=== PATIENT | male | born 1945 | race Caucasian/White ===

== ENCOUNTER 2018-05-24 17:51 | Inpatient (IN) ==
--- NOTE | 2018-05-24 18:08 | Emergency Department Note ---
Disposition Clinical Impression: Right lower lobe pneumonia, Weakness, Leukocytosis, Alzheimers disease Pneumonia Qualifiers: Pneumonia type: due to unspecified organism Laterality: right Lung location: lower lobe of lung Qualified Code(s): J18.1 - Lobar pneumonia, unspecified organism Hematuria Qualifiers: Hematuria type: gross Qualified Code(s): R31.0 - Gross hematuria Disposition: Admitted As Inpatient Condition: Fair Referrals: Sofy Blandon, RETAIL SALESWORKER [Primary Care Provider] - Forms: ED Satisfaction Letter, Work/School Release General Adult HPI - General Chief complaint: ED General Medical Stated complaint: weakness, malaise, body aches Time Seen by Provider: 05/24/18 18:01 Source: patient Mode of arrival: EMS Limitations: no limitations Nursing Notes Reviewed: Yes Vital Signs Reviewed: Yes - History of Present Illness HPI Narrative: 73 yo male with past medical history of cardiac bypass, diabetes and Parkinson's disease presents via EMS for increasing weakness at home. This patient has been seen 2 times in the emergency department since for various complaints. On he was seen for possible GI bleed with hemorrhoids and pain with bowel movements. On Wednesday he was seen for urinary retention and continues to have an indwelling Coley catheter at this time. Today he was unable to walk to the bathroom and his , who is his primary assessment rn, has not been able to properly take care of him today so the son called EMS. reports that the patient has not been eating or drinking as much recently and has become in continent with many episodes of diarrhea per day. He has been nauseous but has not vomited. She notes that there was some blood in his Coley bag today as well with some clots. He complains of total body pain and weakness. He also states that his legs feel numb and different when he tries to walk. He denies any chest pain or shortness of breath. He does have some abdominal pain. denies fevers at home. Pain Scale: 5 - Related Data Allergies Allergy/AdvReac Type Severity Reaction Status Date / Time tirofiban Allergy Intermediate See Verified 05/19/18 16:00 [From Aggrastat Concentrate] Comments All systems ED: reviewed and negative except as stated. Review of Systems: As Per HPI Constitutional: Reports: weakness. Denies: fever, chills Cardiovascular: Denies: chest pain, palpitations, dyspnea on exertion, orthopnea, edema, syncope Respiratory: Reports: cough. Denies: dyspnea, wheezes, sputum production Gastrointestinal: Reports: abdominal pain, nausea, diarrhea. Denies: vomiting, constipation Genitourinary: Reports: hematuria Musculoskeletal: Reports: back pain, neck pain Integumentary: Denies: rash Neurological: Reports: numbness, paresthesias Past Medical History - Past Medical History Medical history: Reports: coronary artery disease, diabetes, hypertension, myocardial infarction Psychiatric history: Reports: no psych history - Social History Smoking Status: Never smoker Smokeless Tobacco Status: No Alcohol use: Reports: none Drug use: Reports: none Physical Exam Pt generally weak but able to move all 4 extremities against gravity. States his legs feel different than normal but has equal sensation of B/L LE. - General Limitations: no limitations General appearance: alert, in no apparent distress - Head Head exam: atraumatic, normocephalic - Eye Eye exam: Present: normal appearance, PERRL, EOMI - ENT ENT exam: normal exam, mucous membranes dry - Neck Neck exam: Present: normal inspection. Absent: tenderness, lymphadenopathy - Chest Chest inspection: Present: normal inspection, symmetric chest wall rise. Absent: tenderness, rash - Respiratory Respiratory exam: Present: normal lung sounds bilaterally. Absent: wheezes - Cardiovascular Cardiovascular exam: Present: regular rate, normal rhythm - Abdominal Exam Abdominal exam: Present: soft, tenderness. Absent: Randhawa's sign, Rovsing's sign, tenderness at McBurney's Point Abdominal tenderness: Present: diffuse, mild - Extremities Exam Extremities exam: Present: normal inspection. Absent: pedal edema, calf tenderness - Neurological Exam Neurological exam: Present: alert, CN II-XII intact. Absent: motor sensory deficit - Psychiatric Psychiatric exam: Present: flat affect - Skin Skin exam: Present: warm, dry, intact Course Vital Signs Temperature 98.0 F 05/24/18 17:56 Pulse Rate 73 05/24/18 17:56 Respiratory Rate 16 05/24/18 17:56 Blood Pressure 152/82 05/24/18 17:56 O2 Sat by Pulse Oximetry 95 05/24/18 17:56 Temperature 98.0 F 05/24/18 17:56 Pulse Rate 62 05/24/18 19:05 Respiratory Rate 20 05/24/18 19:05 Blood Pressure 148/74 05/24/18 19:05 O2 Sat by Pulse Oximetry 96 05/24/18 19:05 Oxygen Delivery Oxygen Delivery Room Air Medical Decision Making - MDM Narrative Medical decision making narrative: As this patient is becoming more weak and unable to take care of himself, we will obtain CBC, CMP, troponin, UA, CXR, EKG and give him a bolus of fluids. 191 - Labs were significant for an elevated WBC and hematuria. EKG unremarkable. CXR demonstrates a right sided pneumonia. We will obtain a lactic and blood cultures, and administer rocephin and azithromycin. Hospitalist has been paged for admission for pneumonia and weakness. 193 - Dr. Freitas has accepted the patient for admission. - Medical Records Medical records reviewed: Yes I reviewed the patient's medical records. - Lab Data Lab results reviewed: Yes I reviewed the patient's lab results. Result diagrams: 05/24/18 18:02 05/24/18 18:02 Lab Results 05/24/18 05/24/18 05/24/18 Range/Units 18:02 18:02 18:40 WBC 15.6 H (4.3-11.1) K/mcL RBC 4.17 L (4.19-5.50) M/mcL Hgb 12.5 L (12.9-16.9) g/dL Hct 38.7 (37.5-50.1) % MCV 92.8 (83.0-100.0) fL MCH 30.0 (28.0-33.3) pg MCHC 32.3 (31.6-35.5) g/dL RDW 13.5 (11.5-14.5) % Plt Count 367 (140-400) K/mcL MPV 9.5 (9.4-12.4) fL Immature Gran % 0.5 (0-4) % Seg Neutrophils % 83.1 % Lymphocytes % 7.6 % Monocytes % 5.8 % Eosinophils % 2.6 % Basophils % 0.4 % Neutrophils # 12.9 H (1.6-8.9) K/mcL Lymphocytes # 1.2 (0.6-4.6) K/mcL Monocytes # 0.9 (0.0-1.3) K/mcL Eosinophils # 0.4 (0.0-0.6) K/mcL Basophils # 0.1 (0.0-0.2) K/mcL Sodium 135 L (136-145) mEq/L Potassium 4.7 (3.5-5.1) mEq/L Chloride 98 (98-107) mEq/L Carbon Dioxide 32 H (23-29) mEq/L BUN 16 (8-23) mg/dL Creatinine 0.55 L (0.70-1.30) mg/dL Est GFR ( Amer) > 60 (> 60) Est GFR (Non-Af Amer) > 60 (> 60) BUN/Creatinine Ratio 29 H (6-26) Glucose 177 H (70-105) mg/dL Calculated Osmolality 286 (280-300) Calcium 8.6 (8.6-10.3) mg/dL Total Bilirubin 0.4 (0.3-1.0) mg/dL AST 15 (13-39) Units/L ALT 3 L (7-52) Units/L Alkaline Phosphatase 88 (34-104) Units/L Troponin I < 0.03 (< 0.04) ng/mL Serum Total Protein 6.4 (6.4-8.9) g/dL Albumin 3.0 L (3.5-5.7) g/dL Globulin 3.4 (2.4-3.5) g/dL Albumin/Globulin Ratio 0.9 L (1.1-2.2) Urine Color Yellow (Yellow) Urine Clarity Cloudy A (Clear) Urine pH 6.0 (5.0-8.0) pH Units Ur Specific [place] 1.012 (1.010-1.025) Urine Protein 100 H (Neg-Trace) mg/dL Urine Glucose (UA) Normal (Normal) mg/dL Urine Ketones Negative (Negative) mg/dL Urine Blood Large H (Negative) Urine Nitrite Negative (Negative) Urine Bilirubin Negative (Negative) Urine Urobilinogen Normal (Normal) mg/dL Ur Leukocyte Esterase Small H (Negative) Urine Microscopic RBC TNTC H (0-3) per hpf Urine Microscopic WBC 3-5 H (0-3) per hpf Urine Sperm Present Ur Culture Indicated? YES A (NO) - Radiology Data Radiology results reviewed: Yes I reviewed the patient's radiology results. - EKG Data EKG #1 EKG attestation: Yes I reviewed and interpreted this EKG. EKG results narrative: EKG obtained at 18:11 on Heart rate 78 bpm, NM interval 170, QRS duration 108, QT 400, QTC 456 Atrial paced rhythm with an incomplete left bundle branch block pattern. There is artifact in all leads H patient shaking. No obvious ST segment elevations or depressions. No signs concerning for ischemia. Unchanged when compared to previous EKG dated 05/19/2018.
[2018-05-24] MEDS ORDERED: 0.9 % Sodium Chloride 1,000 ML IVC ONE (18:09)
[2018-05-24 18:40] LABS: Basophils # 0.1 K/mcL (0.0-0.2); Basophils % 0.4 %; Eosinophils # 0.4 K/mcL (0.0-0.6); Eosinophils % 2.6 %; Hematocrit 38.7 % (37.5-50.1); Hemoglobin 12.5 g/dL (12.9-16.9); Immature Granulocytes % 0.5 % (0-4); Lymphocytes # 1.2 K/mcL (0.6-4.6); Lymphocytes % 7.6 %; Mean Corpuscular HGB Conc 32.3 g/dL (31.6-35.5); Mean Corpuscular Volume 92.8 fL (83.0-100.0); Mean Platelet Volume 9.5 fL (9.4-12.4); Monocytes # 0.9 K/mcL (0.0-1.3); Monocytes % 5.8 %; Neutrophils # 12.9 K/mcL (1.6-8.9); Platelet Count 367 K/mcL (140-400); Red Blood Count 4.17 M/mcL (4.19-5.50); Red Cell Distribution Width 13.5 % (11.5-14.5); Segmented Neutrophils % 83.1 %
[2018-05-24 18:51] LABS: Alanine Aminotransferase 3 Units/L (7-52); Albumin/Globulin Ratio 0.9 (1.1-2.2); Alkaline Phosphatase 88 Units/L (34-104); Aspartate Amino Transferase 15 Units/L (13-39); BUN/Creatinine Ratio 29 (6-26); Bilirubin,Total 0.4 mg/dL (0.3-1.0); Blood Urea Nitrogen 16 mg/dL (8-23); Calcium 8.6 mg/dL (8.6-10.3); Carbon Dioxide 32 mEq/L (23-29); Chloride 98 mEq/L (98-107); Globulin 3.4 g/dL (2.4-3.5); Glucose 177 mg/dL (70-105); Osmolality,Calculated 286 (280-300); Potassium 4.7 mEq/L (3.5-5.1); Sodium 135 mEq/L (136-145); Total Protein 6.4 g/dL (6.4-8.9); Troponin I < 0.03 ng/mL (< 0.04); eGFR For Non-African Americans > 60 (> 60)
[2018-05-24 18:59] LABS: Bilirubin,Urine Negative (Negative); Blood,Urine Large (Negative); Clarity,Urine Cloudy (Clear); Color,Urine Yellow (Yellow); Glucose,Urine (UA) Normal (Normal); Ketones,Urine Negative (Negative); Leukocyte Esterase,Urine Small (Negative); Nitrite,Urine Negative (Negative); Protein,Urine 100 mg/dL (Neg-Trace); Specific Gravity,Urine 1.012 (1.010-1.025); Urobilinogen,Urine Normal (Normal)
[2018-05-24 19:09] LABS: RBC,Urine TNTC per hpf (0-3); Sperm,Urine Present
[2018-05-24] MEDS ORDERED: cefTRIAXone 1,000 MG in Water for inj. (sterile) 20 ML 10 ML IVP ONE (19:16)
[2018-05-24] MEDS ORDERED: Azithromycin 500 MG in D5% in Water 250 ML IVPB ONE (19:16)
--- NOTE | 2018-05-24 19:22 | Emergency Department Note ---
Disposition Clinical Impression: Generalized weakness, Leukocytosis, Alzheimers disease Right lower lobe pneumonia Qualifiers: Pneumonia type: due to unspecified organism Qualified Code(s): J18.1 - Lobar pneumonia, unspecified organism Disposition: Admitted As Inpatient Condition: Fair Referrals: Sofy Blandon, CORRECTIVE THERAPY AIDE [Primary Care Provider] - Forms: ED Satisfaction Letter, Work/School Release General Adult HPI - General Chief complaint: ED General Medical Stated complaint: weakness, malaise, body aches Time Seen by Provider: 05/24/18 18:01 Source: patient Mode of arrival: EMS Limitations: no limitations - History of Present Illness Pain Scale: 4 - Related Data Allergies Allergy/AdvReac Type Severity Reaction Status Date / Time tirofiban Allergy Intermediate See Verified 05/19/18 16:00 [From Aggrastat Concentrate] Comments Constitutional: Reports: weakness. Denies: fever, chills Cardiovascular: Denies: chest pain, palpitations, dyspnea on exertion, orthopnea, edema, syncope Respiratory: Reports: cough. Denies: dyspnea, wheezes, sputum production Gastrointestinal: Reports: abdominal pain, nausea, diarrhea. Denies: vomiting, constipation Genitourinary: Reports: hematuria Musculoskeletal: Reports: back pain, neck pain Integumentary: Denies: rash Neurological: Reports: numbness, paresthesias Past Medical History - Past Medical History Medical history: Reports: coronary artery disease, diabetes, hypertension, myocardial infarction Psychiatric history: Reports: no psych history - Social History Smoking Status: Never smoker Smokeless Tobacco Status: No Alcohol use: Reports: none Drug use: Reports: none Physical Exam - General Limitations: no limitations General appearance: alert, in no apparent distress Course Vital Signs Temperature 98.0 F 05/24/18 17:56 Pulse Rate 73 05/24/18 17:56 Respiratory Rate 16 05/24/18 17:56 Blood Pressure 152/82 05/24/18 17:56 O2 Sat by Pulse Oximetry 95 05/24/18 17:56 Temperature 98.0 F 05/24/18 17:56 Pulse Rate 62 05/24/18 19:05 Respiratory Rate 20 05/24/18 19:05 Blood Pressure 148/74 05/24/18 19:05 O2 Sat by Pulse Oximetry 96 05/24/18 19:05 Oxygen Delivery Oxygen Delivery Room Air Medical Decision Making - Medical Records Medical records reviewed: Yes I reviewed the patient's medical records. - Lab Data Lab results reviewed: Yes I reviewed the patient's lab results. Result diagrams: 05/24/18 18:02 05/24/18 18:02 Lab Results 05/24/18 05/24/18 05/24/18 Range/Units 18:02 18:02 18:40 WBC 15.6 H (4.3-11.1) K/mcL RBC 4.17 L (4.19-5.50) M/mcL Hgb 12.5 L (12.9-16.9) g/dL Hct 38.7 (37.5-50.1) % MCV 92.8 (83.0-100.0) fL MCH 30.0 (28.0-33.3) pg MCHC 32.3 (31.6-35.5) g/dL RDW 13.5 (11.5-14.5) % Plt Count 367 (140-400) K/mcL MPV 9.5 (9.4-12.4) fL Immature Gran % 0.5 (0-4) % Seg Neutrophils % 83.1 % Lymphocytes % 7.6 % Monocytes % 5.8 % Eosinophils % 2.6 % Basophils % 0.4 % Neutrophils # 12.9 H (1.6-8.9) K/mcL Lymphocytes # 1.2 (0.6-4.6) K/mcL Monocytes # 0.9 (0.0-1.3) K/mcL Eosinophils # 0.4 (0.0-0.6) K/mcL Basophils # 0.1 (0.0-0.2) K/mcL Sodium 135 L (136-145) mEq/L Potassium 4.7 (3.5-5.1) mEq/L Chloride 98 (98-107) mEq/L Carbon Dioxide 32 H (23-29) mEq/L BUN 16 (8-23) mg/dL Creatinine 0.55 L (0.70-1.30) mg/dL Est GFR ( Amer) > 60 (> 60) Est GFR (Non-Af Amer) > 60 (> 60) BUN/Creatinine Ratio 29 H (6-26) Glucose 177 H (70-105) mg/dL Calculated Osmolality 286 (280-300) Calcium 8.6 (8.6-10.3) mg/dL Total Bilirubin 0.4 (0.3-1.0) mg/dL AST 15 (13-39) Units/L ALT 3 L (7-52) Units/L Alkaline Phosphatase 88 (34-104) Units/L Troponin I < 0.03 (< 0.04) ng/mL Serum Total Protein 6.4 (6.4-8.9) g/dL Albumin 3.0 L (3.5-5.7) g/dL Globulin 3.4 (2.4-3.5) g/dL Albumin/Globulin Ratio 0.9 L (1.1-2.2) Urine Color Yellow (Yellow) Urine Clarity Cloudy A (Clear) Urine pH 6.0 (5.0-8.0) pH Units Ur Specific [place] 1.012 (1.010-1.025) Urine Protein 100 H (Neg-Trace) mg/dL Urine Glucose (UA) Normal (Normal) mg/dL Urine Ketones Negative (Negative) mg/dL Urine Blood Large H (Negative) Urine Nitrite Negative (Negative) Urine Bilirubin Negative (Negative) Urine Urobilinogen Normal (Normal) mg/dL Ur Leukocyte Esterase Small H (Negative) Urine Microscopic RBC TNTC H (0-3) per hpf Urine Microscopic WBC 3-5 H (0-3) per hpf Urine Sperm Present Ur Culture Indicated? YES A (NO) - Radiology Data Radiology results reviewed: Yes I reviewed the patient's radiology results. Critical Care Time Critical Care Time: No Attestation Statement - Attestation Attestation: I examined this patient and my medical decision-making was reviewed with the Resident Physician. I agree with the documented findings, disposition and treatment plan as described except to the extent set forth below. 73-year-old male presented to the emergency room for increasing weakness. Patient has been seen at the emergency room. Patient was just having urinary retention and had a Coley catheter placed a few days ago on Wednesday. Has been unable to care for him due to his increasing weakness. He was unable to get to the bathroom. Pt was seen a few days before that for hemorrhoids and co nstipation. pt has alzheimer's disease. struggling to get care at home. Check cyst rate today shows evidence of right-sided pneumonia. Does have a slight elevated white count. We will start him on IV Rocephin and Zithromax. Patient will be admitted to hospital. Patient may need placement until her strength improves. Family was updated. His vitals are stable at this time. He is in no distress. Specifically, he is in no respiratory distress. EKG did not reveal any significant findings.
[2018-05-24 19:59] LABS: INR 1.8
[2018-05-24 20:00] LABS: Prothrombin Time 20.3 Seconds (9.4-12.1)
[2018-05-24] MEDS ORDERED: Naloxone 0.4 MG/ML INJ IVP PRN (20:11)
[2018-05-24] MEDS ORDERED: *HR* HYDROcodone/Acet 5/325 mg TABLET PO PRN (20:11)
[2018-05-24] MEDS ORDERED: Acetaminophen 325 MG TABLET PO PRN (20:11)
[2018-05-24] MEDS ORDERED: Dextrose Gel 15 GM/37.5 ML TUBE PO PRN ×2 (20:12)
[2018-05-24] MEDS ORDERED: Ringers Solution, Lactated 1,000 ML IVC SCH (20:15)
[2018-05-24] MEDS ORDERED: Ipratropium/Albuterol Neb 3 ML IH PRN (20:16)
[2018-05-24] MEDS ORDERED: Perflutren Lipid Microsphere 1.3 ML in 0.9 % Sodium Chloride 8.7 ML IVP ONE (21:03)
[2018-05-24] MEDS: Insulin DETEMIR 100 UNIT/ML X5UNITS SQ SCH (21:57)
[2018-05-24] MEDS: Insulin LISPRO 300 UNITS/3 ML VIAL SQ SCH (21:57)
[2018-05-24] MEDS: Carbidopa/Levodopa 25/100 TABLET PO SCH (21:58)
[2018-05-24] MEDS: traMADol 50 MG TABLET PO PRN (22:05)
--- NOTE | 2018-05-24 22:07 | Internal Med History&Physical ---
Date of Encounter: 05/24/18 Time of Encounter: 22:05 Internal Medicine - H&P: HPI Chief complaint: fatigue Admitted From: Home Plans for Post Hospital Care: Home History of present illness: Bartolome Olivares is a 73-year-old male with a history of ischemic cardiomyopathy status post CABG on 2 occasions as well as PCI with multiple stents and AICD, atrial fibrillation on warfarin who has presented to the ER on 3 occasions over the past 5 days initially complaining of rectal pain and bleeding on the found to have hemorrhoids; after that he presented with difficulty with micturition and required Earl catheter placement on the and now is brought in by his son and stating that he has been increasingly fatigued and complains of generalized body aches. They state that they are unable to care for him and his current condition at home. When asked he just says he hurts all over. His family members attest that he has been coughing for a long time and is increasingly more productive noticing greenish sputum. No fever or chills have been reported. In the ER his vital signs were within normal limits and on blood work was seen to have a leukocytosis of 15.6 which on review of old records is seen to be on a gradual trend. Chest x-ray was reviewed by me and shows right-sided pulmonary opacities concerning for pneumonia. He was started on fluids and antibiotics and is admitted for further care. Past Med Surg Social Fam HX - Past Medical History Medical history: atrial fibrillation, coronary artery disease, diabetes, hyperte nsion, myocardial infarction Additional medical history: parkinsons Psychiatric history: no psych history - Past Surgical History Surgical History: angioplasty/stent Additional surgical history: 33 cardiac stents, double chamber pacemaker, rectal surgery - Social History Smoking Status: Never smoker Smokeless Tobacco Status: No Alcohol use: none Drug use: none Internal Medicine - H&P: Meds Allergy/AdvReac Type Severity Reaction Status Date / Time tirofiban Allergy Intermediate See Verified 05/19/18 16:00 [From Aggrastat Concentrate] Comments All Systems PM: A 10-system review of systems was performed and is negative for pertinent findings except as documented above in the HPI. Family history reviewed and found noncontributory. - Constitutional Vitals: Temp Pulse Resp BP Pulse Ox 98.1 F 70 18 136/67 94 05/24/18 20:34 05/24/18 20:34 05/24/18 20:34 05/24/18 20:34 05/24/18 20:34 General appearance: Present: A&O X 3 Exam: Vitals: Reviewed General: Asthenic-appearing elderly male lying in bed in no acute distress. Skin: Warm but pale and dry. Multiple lesions of actinic keratoses as well as squamous cell changes noted. HEENT: Dry mucous membranes. + conjunctivae pallor. Neck: No JVD. No carotid bruits. No palpable thyroid. Chest: Diminished thoracic expansion. Reduced breath sounds bilaterally. Heart: Irregularly irregular. Abdomen: Non-distended, soft and non-tender to palpation. No peritoneal reaction. Extremities: No clubbing, cyanosis. 1+ pedal edema. No calf tenderness. Normal distal pulses. Neurological: Awake, alert and oriented to person, place and time. No focal deficits. Psych: Affect appropriate. Internal Med - H&P Results - Labs CBC & Chem 7: 05/24/18 18:02 05/24/18 18:02 Labs: Short CBC 05/24/18 Range/Units 18:02 WBC 15.6 H (4.3-11.1) K/mcL Hgb 12.5 L (12.9-16.9) g/dL Hct 38.7 (37.5-50.1) % Plt Count 367 (140-400) K/mcL Neutrophils # 12.9 H (1.6-8.9) K/mcL BMP 05/24/18 18:02 Sodium 135 L Potassium 4.7 Chloride 98 Carbon Dioxide 32 H BUN 16 Creatinine 0.55 L Glucose 177 H Calcium 8.6 Cardiac Enzymes 05/24/18 Range/Units 18:02 Troponin I < 0.03 (< 0.04) ng/mL Liver Function 05/24/18 Range/Units 18:02 Total Bilirubin 0.4 (0.3-1.0) mg/dL AST 15 (13-39) Units/L ALT 3 L (7-52) Units/L Alkaline Phosphatase 88 (34-104) Units/L Albumin 3.0 L (3.5-5.7) g/dL Urine 05/24/18 Range/Units 18:40 Urine Color Yellow (Yellow) Urine Clarity Cloudy A (Clear) Urine pH 6.0 (5.0-8.0) pH Units Ur Specific [place] 1.012 (1.010-1.025) Urine Protein 100 H (Neg-Trace) mg/dL Urine Glucose (UA) Normal (Normal) mg/dL - Impressions ITS Impressions Chest X-Ray 05/24/18 18:02 IMPRESSION: Moderate to large right lower lobe pulmonary opacities most concerning for pneumonia. Recommend radiographic follow-up to complete resolution after treatment to exclude malignancy. D/ /24/2018 18:56:20 Basil Barbosa MD / earnold Interpreting Provider: Basil Barbosa MD - Assessment and plan (1) Right lower lobe pneumonia Current Visit: Yes Status: Acute Assessment and plan: As noted radiographically and correlates with hos chronic productive cough. Will treat for CAP with azithromycin/ceftriaxone for now. Collect sputum culture and send urine antigen testing. Respiratory watch. Nebulizers prn. Qualifiers: Pneumonia type: due to unspecified organism Qualified Code(s): J18.1 - Lobar pneumonia, unspecified organism (2) Generalized weakness Current Visit: Yes Status: Acute Assessment and plan: Seems multifactorial in the setting of poor oral intake, notable dehydration clinically, signs of an active infection and possible GI bleed. Low iron studies noted; will check a ferritin. Stool occult blood testing to be collected before starting iron therapy. Another consideration is the home medication sotalol is known to cause these fatigue symptoms as a common side effect. (3) Alzheimers disease Current Visit: Yes Status: Acute Assessment and plan: As reported by family members. He also has Parkinsonian features and is on carbidopa/levodpa which we will continue during his admission. Fall precautions ordered. key worker consult requested for assistance with home care needs as his seems to be struggling at this point. Qualifiers: Alzheimer's disease onset: unspecified onset Dementia behavioral disturbanc e: without behavioral disturbance Qualified Code(s): G30.9 - Alzheimer's disease, unspecified; F02.80 - Dementia in other diseases classified elsewhere without behavioral disturbance (4) Acute retention of urine Current Visit: Yes Status: Acute Assessment and plan: No reported history of prostatic issues. Has an appointment scheduled with Urology as an outpatient within the next week. Continue earl care as needed. (5) Afib Current Visit: Yes Status: Acute Assessment and plan: Monitor on telemetry. Resume warfarin as he is currently subtherapeutic as a few doses were held since his last check where his INR was >3. Qualifiers: Atrial fibrillation type: chronic Qualified Code(s): I48.2 - Chronic atrial fibrillation (6) Diabetes Current Visit: Yes Status: Acute Assessment and plan: Will lower basal insulin dose to 10U from 15U due to his poor oral intake, hold oral agents and start insulin sliding scale. Last A1C 8.0%. 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
[2018-05-25 04:20] LABS: Basophils # 0.1 K/mcL (0.0-0.2); Basophils % 0.5 %; Eosinophils # 0.3 K/mcL (0.0-0.6); Eosinophils % 2.5 %; Hematocrit 32.4 % (37.5-50.1); Immature Granulocytes % 0.3 % (0-4); Lymphocytes # 1.3 K/mcL (0.6-4.6); Lymphocytes % 10.4 %; Mean Corpuscular HGB Conc 32.4 g/dL (31.6-35.5); Mean Corpuscular Hemoglobin 29.7 pg (28.0-33.3); Mean Corpuscular Volume 91.8 fL (83.0-100.0); Mean Platelet Volume 9.7 fL (9.4-12.4); Monocytes # 0.9 K/mcL (0.0-1.3); Monocytes % 7.4 %; Neutrophils # 9.7 K/mcL (1.6-8.9); Platelet Count 313 K/mcL (140-400); Red Blood Count 3.53 M/mcL (4.19-5.50); Red Cell Distribution Width 13.5 % (11.5-14.5); Segmented Neutrophils % 78.9 %
[2018-05-25 04:21] LABS: Hemoglobin 10.5 g/dL (12.9-16.9)
[2018-05-25 05:00] LABS: BUN/Creatinine Ratio 31 (6-26); Blood Urea Nitrogen 16 mg/dL (8-23); Carbon Dioxide 30 mEq/L (23-29); Chloride 102 mEq/L (98-107); Ferritin 259 ng/mL (20-250); Glucose 137 mg/dL (70-105); Osmolality,Calculated 279 (280-300); Potassium 3.5 mEq/L (3.5-5.1); Sodium 133 mEq/L (136-145); eGFR For Non-African Americans > 60 (> 60)
[2018-05-25] MEDS: Insulin LISPRO 300 UNITS/3 ML VIAL SQ SCH ×4 (07:54→20:41)
[2018-05-25] MEDS: cefTRIAXone 1,000 MG in Water for inj. (sterile) 20 ML 10 ML IVP SCH (07:55)
[2018-05-25] MEDS: Aspirin 81 MG TAB.CHEW PO SCH (07:55)
[2018-05-25] MEDS: Carbidopa/Levodopa 25/100 TABLET PO SCH ×3 (07:55→20:42)
[2018-05-25] MEDS ORDERED: *HR* Dextrose 50 % in Water (Syg) 50 ML SYRINGE IVP PRN (08:20)
[2018-05-25] MEDS ORDERED: D5% in Water 1,000 ML IVC PRN (08:20)
[2018-05-25] MEDS ORDERED: Pantoprazole 40 MG VIAL IVP SCH (09:00)
[2018-05-25] MEDS: *HR* HYDROcodone/Acet 5/325 mg TABLET PO PRN ×2 (14:21→20:42)
--- NOTE | 2018-05-25 15:14 | Electrocardiograph Report ---
[address] [address] Test Date: 2018-05-24 Pat Name: Bartolome Olivares Department: EXAM12 Room: 2A25 Gender: M Neck Fitter: : 1945 Requested By: Denise Alarcon Order Number: [id number] Reading MD: Gwendolyn Macias Measurements Intervals [place] Rate: 78 P: [place]: 170 QRS: 50 QRSD: 108 T: -62 QT: 400 QTc: 456 Interpretive Statements Atrial-paced rhythm Incomplete left bundle branch block Baseline artifact Electronically Signed On 05-25-2018 15:13:01 EST by Gwendolyn Macias
[2018-05-25] MEDS ORDERED: Azithromycin 500 MG in D5% in Water 250 ML IVPB SCH ×2 (18:00→21:00)
[2018-05-25] MEDS: Insulin DETEMIR 100 UNIT/ML X5UNITS SQ SCH (20:42)
--- NOTE | 2018-05-25 22:10 | Internal Med Progress Note ---
Hospitalist Progress Note - Encounter Date of Encounter: 05/25/18 Time of Encounter: 19:00 - Subjective Interval History: SUBJECTIVE: The patient feels weak but comfortable. His breathing is easy. He is not using supplemental oxygen. He does have mild cough but not wheezing. Denies chest pain. Denies abdominal pain, nausea and vomiting. He has normal urination. OBJECTIVE: Skin: Free of rash and discoloration. ENMT: Oral/pharyngeal mucosa is normal in appearance. Eyes: Sclera is white. There is no discharge from eyes. Respiratory: Normal breath sounds; no crackles or wheezes. CV: Heart is regular; no gallop or murmur. GI: Abdomen is soft and not tender. There is no palpable mass or visceromegaly. Neuro: There is no focal deficits. ADDITIONAL DATA: 05/24: Chest x-ray shows moderate to large right lower lobe pulmonary opacities, most concerning for pneumonia. CBC shows hemoglobin of 10.5 with a WBC of 12.3 thousand (15.6 thousand ye sterday). Electrolytes are normal. Creatinine is 0.51. ASSESSMENT AND PLAN: Right lower lobe pneumonia. Seems to be better. To continue IV Rocephin and IV Zithromax. He gets when necessary nebulizer treatments with DuoNeb. No need for oxygen at this time. Type 2 diabetes mellitus. He is on diabetic diet, Levemir and when necessary Humalog. He was getting Lantus, glipizide and Glucophage at home. Atrial fibrillation. Rate controlled. I will continue his warfarin. Parkinsons disease. He gets Sinemet. Debility. The patient has not ambulated for the last 5 days. I will start him on physical therapy. Acute retention of urine. To continue Coley catheter. I will do a voiding t rial, when he gets a little bit stronger. DISPOSITION: He seems to be very deconditioned. He has underlying Parkinsons disease. He will very likely benefit from ECF. - Exam Vitals: Temp Pulse Resp BP Pulse Ox 97.9 F 62 20 151/69 93 05/25/18 20:25 05/25/18 20:25 05/25/18 20:25 05/25/18 20:25 05/25/18 20:25 Exam: xx - Assessment and Plan (1) Right lower lobe pneumonia Current Visit: Yes Status: Acute (2) Diabetes Current Visit: Yes Status: Acute (3) Afib Current Visit: Yes Status: Acute (4) Parkinson disease Current Visit: Yes Status: Chronic (5) Debility Current Visit: Yes Status: Acute (6) Acute retention of urine Current Visit: Yes Status: Acute - Time Spent with Patient Total time spent is greater than 50% in coordination of care (as documented) at patient's floor/unit and/or counseling patient: 25 - 35 minutes Plan of Care Discussed with: patient Internal Medicine: Result - Labs CBC & Chem 7: 05/25/18 03:29 05/25/18 03:29 Labs: Short CBC 05/25/18 Range/Units 03:29 WBC 12.3 H (4.3-11.1) K/mcL Hgb 10.5 L D (12.9-16.9) g/dL Hct 32.4 L (37.5-50.1) % Plt Count 313 (140-400) K/mcL Neutrophils # 9.7 H (1.6-8.9) K/mcL BMP 05/25/18 03:29 Sodium 133 L Potassium 3.5 D Chloride 102 Carbon Dioxide 30 H BUN 16 Creatinine 0.51 L Glucose 137 H Calcium 8.0 L - ABG Interpretation ABG results: PT/INR, D-dimer PT 20.3 Seconds (9.4-12.1) H D 05/24/18 18:17 - Impressions Impressions Chest X-Ray 05/24/18 18:02 IMPRESSION: Moderate to large right lower lobe pulmonary opacities most concerning for pneumonia. Recommend radiographic follow-up to complete resolution after treatment to exclude malignancy. D/ : / 05/24/2018 18:56:20 Basil Barbosa MD / earnold Interpreting Provider: Basil Barbosa MD Echocardiogram 05/24/18 20:19 Impressions: LVEF 60-65%. Normal LV chamber size, wall thickness and function. Atypical septal motion consistent with post-operative status. Mild left ventricular diastolic dysfunction. Normal right ventricular structure and function. Mild tricuspid regurgitation. Moderate-severe pulmonary hypertension. Estimated RVSP is 55 mmHg. Device per reports. Lead visualized in the right atrium. Left Ventricular Wall Motion: Rest Echo Findings All wall segments showed normal motion. Findings: Study Quality * Technically adequate exam. ECG Findings * Normal sinus rhythm. Left Ventricle * LVEF 60-65%. * Normal LV chamber size, wall thickness and function. * Atypical septal motion consistent with post-operative status. * Mild left ventricular diastolic dysfunction. Right Ventricle * Normal right ventricular structure and function. Left Atrium * Mild to moderately dilated left atrium. Right Atrium * Mildly dilated right atrium. Aortic Valve * Trileaflet aortic valve. * Mildly sclerotic aortic valve leaflets. * No aortic regurgitation. * No aortic stenosis. Mitral Valve * Mildly thickened mitral valve leaflets. * Trace mitral regurgitation. * No mitral stenosis. Tricuspid Valve * Normal tricuspid valve structure. * Mild tricuspid regurgitation. * Moderate-severe pulmonary hypertension. Estimated RVSP is 55 mmHg. * Estimated RA pressure is assumed to be 5 mmHg. IVC not well visualized. Pulmonic Valve * Pulmonic valve not well visualized. * No pulmonic regurgitation. Aorta * Normally sized aortic root. Pericardium * The pericardium appears normal. IVC * The IVC is not well evaluated. Device lead * Device per reports. Lead visualized in the right atrium. Pulmonary Artery * Pulmonary artery not well visualized. Consult Discharge Plan - Plan Referrals: Sofy Blandon, PROGRAM SCHEDULE CLERK [Primary Care Provider] - (1) Right lower lobe pneumonia Qualifiers: Pneumonia type: due to unspecified organism Qualified Code(s): J18.1 - Lobar pneumonia, unspecified organism (2) Diabetes Qualifiers: Diabetes mellitus type: type 2 Diabetes mellitus switchboard mechanic insulin use: with [facility] use Diabetes mellitus complication status: with unspecified complications Qualified Code(s): E11.8 - Type 2 diabetes mellitus with unspecified complications; Z79.4 - grant manager (current) use of insulin (3) Afib Qualifiers: Atrial fibrillation type: chronic Qualified Code(s): I48.2 - Chronic atrial fibrillation
[2018-05-25] MEDS ORDERED: *HR* Warfarin 5 MG TABLET PO ONE (22:17)
[2018-05-26 06:08] LABS: Basophils # 0.1 K/mcL (0.0-0.2); Basophils % 0.6 %; Eosinophils # 0.3 K/mcL (0.0-0.6); Eosinophils % 3.1 %; Hematocrit 34.5 % (37.5-50.1); Hemoglobin 11.1 g/dL (12.9-16.9); Immature Granulocytes % 0.4 % (0-4); Lymphocytes # 1.2 K/mcL (0.6-4.6); Lymphocytes % 11.5 %; Mean Corpuscular HGB Conc 32.2 g/dL (31.6-35.5); Mean Corpuscular Hemoglobin 29.5 pg (28.0-33.3); Mean Corpuscular Volume 91.8 fL (83.0-100.0); Mean Platelet Volume 9.3 fL (9.4-12.4); Monocytes # 0.9 K/mcL (0.0-1.3); Monocytes % 8.6 %; Neutrophils # 8.1 K/mcL (1.6-8.9); Platelet Count 318 K/mcL (140-400); Red Blood Count 3.76 M/mcL (4.19-5.50); Red Cell Distribution Width 13.2 % (11.5-14.5); Segmented Neutrophils % 75.8 %
[2018-05-26 06:19] LABS: INR 2.4; Prothrombin Time 27.5 Seconds (9.4-12.1)
[2018-05-26 06:31] LABS: Alanine Aminotransferase < 3 Units/L (7-52); Albumin 2.6 g/dL (3.5-5.7); Albumin/Globulin Ratio 0.8 (1.1-2.2); Alkaline Phosphatase 82 Units/L (34-104); Aspartate Amino Transferase 19 Units/L (13-39); BUN/Creatinine Ratio 24 (6-26); Bilirubin,Total 0.4 mg/dL (0.3-1.0); Blood Urea Nitrogen 11 mg/dL (8-23); Calcium 8.3 mg/dL (8.6-10.3); Carbon Dioxide 29 mEq/L (23-29); Chloride 99 mEq/L (98-107); Globulin 3.1 g/dL (2.4-3.5); Glucose 125 mg/dL (70-105); Osmolality,Calculated 281 (280-300); Sodium 135 mEq/L (136-145); Total Protein 5.7 g/dL (6.4-8.9); eGFR For Non-African Americans > 60 (> 60)
[2018-05-26] MEDS: Insulin LISPRO 300 UNITS/3 ML VIAL SQ SCH ×5 (08:48→20:35)
[2018-05-26] MEDS: Carbidopa/Levodopa 25/100 TABLET PO SCH ×3 (09:24→20:34)
[2018-05-26] MEDS: Aspirin 81 MG TAB.CHEW PO SCH (09:25)
[2018-05-26] MEDS: Azithromycin 250 MG TABLET PO SCH (09:25)
[2018-05-26] MEDS: cefTRIAXone 1,000 MG in Water for inj. (sterile) 20 ML 10 ML IVP SCH (09:26)
[2018-05-26] MEDS ORDERED: Warfarin perPT PO PRN (18:00)
[2018-05-26] MEDS ORDERED: *HR* Warfarin 2.5 MG TABLET PO ONE (18:00)
[2018-05-26] MEDS: *HR* HYDROcodone/Acet 5/325 mg TABLET PO PRN (19:43)
[2018-05-26] MEDS: Insulin DETEMIR 100 UNIT/ML X5UNITS SQ SCH (20:34)
--- NOTE | 2018-05-26 22:17 | Internal Med Progress Note ---
Hospitalist Progress Note - Encounter Date of Encounter: 05/26/18 Time of Encounter: 19:00 - Subjective Interval History: SUBJECTIVE: The patient feels weak and tired. He started physical therapy today. He could hardly be standing, with a lot of help from physical therapy. Denies chest pain and difficulty breathing. He has mild cough but not wheezing. He is on room air oxygen. Denies abdominal pain, nausea and vomiting. He has normal urination. OBJECTIVE: Skin: Free of rash and discoloration. ENMT: Oral/pharyngeal mucosa is normal in appearance. Eyes: Sclera is white. There is no discharge from eyes. Respiratory: Normal breath sounds; no crackles or wheezes. CV: Heart is regular; no gallop or murmur. GI: Abdomen is soft and not tender. There is no palpable mass or visceromegaly. Neuro: There is no focal deficits. ADDITIONAL DATA: 05/24: Chest x-ray shows moderate to large right lower lobe pulmonary opacities, most concerning for pneumonia. Hemoglobin is 11.1. WBC is 10.7 thousand; 15.6 thousand at admission. Electrolytes are normal. Creatinine 0.46. ASSESSMENT AND PLAN: Right lower lobe pneumonia. Getting better. To continue on IV Rocephin/IV Zithromax. He gets up when necessary nebulizer treatments with DuoNeb. Type 2 diabetes mellitus. He is on diabetic diet, Levemir and when necessary Humalog. He is getting Lantus, glipizide and Glucophage at home. His fasting glucose from today was 125. Atrial fibrillation. Rate controlled. I will continue his warfarin. Parkinsons disease. He gets Sinemet. Debility. Physical therapy has been started. He is not doing well with his ambulation. He would benefit from placement in ECF. Acute retention of urine. To continue Coley catheter. I will do a voiding trial, when he gets a little bit stronger. I am starting Flomax for him. DISPOSITION: He seems to be very deconditioned. Treated for pneumonia. He has underlying Parkinsons disease. He will very likely benefit from ECF. - Exam Vitals: Temp Pulse Resp BP Pulse Ox 98.9 F 67 17 169/75 95 05/26/18 19:21 05/26/18 19:21 05/26/18 19:21 05/26/18 19:21 05/26/18 19:53 Exam: xx - Assessment and Plan (1) Right lower lobe pneumonia Current Visit: Yes Status: Acute (2) Diabetes Current Visit: Yes Status: Acute (3) Afib Current Visit: Yes Status: Acute (4) Parkinson disease Current Visit: Yes Status: Chronic (5) Debility Current Visit: Yes Status: Acute (6) Acute retention of urine Current Visit: Yes Status: Acute - Time Spent with Patient Total time spent is greater than 50% in coordination of care (as documented) at patient's floor/unit and/or counseling patient: 25 - 35 minutes Plan of Care Discussed with: patient (and family...) Internal Medicine: Result - Labs CBC & Chem 7: 05/26/18 05:45 05/26/18 05:45 Labs: Short CBC 05/26/18 Range/Units 05:45 WBC 10.7 (4.3-11.1) K/mcL Hgb 11.1 L (12.9-16.9) g/dL Hct 34.5 L (37.5-50.1) % Plt Count 318 (140-400) K/mcL Neutrophils # 8.1 (1.6-8.9) K/mcL BMP 05/26/18 05:45 Sodium 135 L Potassium 4.0 Chloride 99 Carbon Dioxide 29 BUN 11 Creatinine 0.46 L Glucose 125 H Calcium 8.3 L Liver Function 05/26/18 Range/Units 05:45 Total Bilirubin 0.4 (0.3-1.0) mg/dL AST 19 (13-39) Units/L ALT < 3 L (7-52) Units/L Alkaline Phosphatase 82 (34-104) Units/L Albumin 2.6 L (3.5-5.7) g/dL - ABG Interpretation ABG results: PT/INR, D-dimer PT 27.5 Seconds (9.4-12.1) H 05/26/18 05:45 Consult Discharge Plan - Plan Referrals: Sofy Blandon, DIRECTOR ADVERTISING [Primary Care Provider] - (1) Right lower lobe pneumonia Qualifiers: Pneumonia type: due to unspecified organism Qualified Code(s): J18.1 - Lobar pneumonia, unspecified organism (2) Diabetes Qualifiers: Diabetes mellitus type: type 2 Diabetes mellitus longwall foreman insulin use: with longwall foreman use Diabetes mellitus complication status: with unspecified complications Qualified Code(s): E11.8 - Type 2 diabetes mellitus with unspecified complications; Z79.4 - tank terminal gauger (current) use of insulin (3) Afib Qualifiers: Atrial fibrillation type: chronic Qualified Code(s): I48.2 - Chronic atrial fibrillation
[2018-05-27] MEDS: *HR* HYDROcodone/Acet 5/325 mg TABLET PO PRN ×3 (03:54→20:15)
[2018-05-27] MEDS: traMADol 50 MG TABLET PO PRN ×2 (05:04→16:18)
[2018-05-27 06:37] LABS: Basophils # 0.1 K/mcL (0.0-0.2); Basophils % 0.5 %; Eosinophils # 0.3 K/mcL (0.0-0.6); Eosinophils % 2.8 %; Hematocrit 34.6 % (37.5-50.1); Hemoglobin 11.3 g/dL (12.9-16.9); Immature Granulocytes % 0.4 % (0-4); Lymphocytes # 1.2 K/mcL (0.6-4.6); Lymphocytes % 9.4 %; Mean Corpuscular HGB Conc 32.7 g/dL (31.6-35.5); Mean Corpuscular Hemoglobin 29.7 pg (28.0-33.3); Mean Corpuscular Volume 91.1 fL (83.0-100.0); Mean Platelet Volume 9.5 fL (9.4-12.4); Monocytes % 8.2 %; Neutrophils # 9.7 K/mcL (1.6-8.9); Platelet Count 318 K/mcL (140-400); Red Cell Distribution Width 13.5 % (11.5-14.5); Segmented Neutrophils % 78.7 %
[2018-05-27 06:42] LABS: INR 2.6; Prothrombin Time 29.5 Seconds (9.4-12.1)
[2018-05-27 06:53] LABS: Alanine Aminotransferase 5 Units/L (7-52); Albumin 2.8 g/dL (3.5-5.7); Albumin/Globulin Ratio 0.9 (1.1-2.2); Alkaline Phosphatase 90 Units/L (34-104); Aspartate Amino Transferase 29 Units/L (13-39); BUN/Creatinine Ratio 25 (6-26); Bilirubin,Total 0.3 mg/dL (0.3-1.0); Blood Urea Nitrogen 13 mg/dL (8-23); Calcium 8.6 mg/dL (8.6-10.3); Carbon Dioxide 29 mEq/L (23-29); Chloride 98 mEq/L (98-107); Globulin 3.2 g/dL (2.4-3.5); Glucose 109 mg/dL (70-105); Osmolality,Calculated 279 (280-300); Potassium 4.4 mEq/L (3.5-5.1); Sodium 134 mEq/L (136-145); eGFR For Non-African Americans > 60 (> 60)
[2018-05-27] MEDS: Insulin LISPRO 300 UNITS/3 ML VIAL SQ SCH ×4 (07:41→20:39)
[2018-05-27] MEDS: Aspirin 81 MG TAB.CHEW PO SCH (07:50)
[2018-05-27] MEDS: Azithromycin 250 MG TABLET PO SCH (07:50)
[2018-05-27] MEDS: Carbidopa/Levodopa 25/100 TABLET PO SCH ×3 (07:50→20:15)
[2018-05-27] MEDS: cefTRIAXone 1,000 MG in Water for inj. (sterile) 20 ML 10 ML IVP SCH (07:55)
[2018-05-27] MEDS ORDERED: *HR* Warfarin 2.5 MG TABLET PO ONE (18:00)
[2018-05-27] MEDS: Insulin DETEMIR 100 UNIT/ML X5UNITS SQ SCH (20:16)
--- NOTE | 2018-05-27 22:34 | Internal Med Progress Note ---
Hospitalist Progress Note - Encounter Date of Encounter: 05/27/18 Time of Encounter: 19:00 - Subjective Interval History: SUBJECTIVE: He makes very slow progress with physical therapy. He was practicing transfers from bed to chair today. He spends some time sitting next to his bed. He is not able to walk, yet. Denies difficulty breathing. He is on room air oxygen. He does have mild cough but not wheezing. OBJECTIVE: Skin: Free of rash and discoloration. ENMT: Oral/pharyngeal mucosa is normal in appearance. Eyes: Sclera is white. There is no discharge from eyes. Respiratory: Normal breath sounds; no crackles or wheezes. CV: Heart is regular; no gallop or murmur. GI: Abdomen is soft and not tender. There is no palpable mass or visceromegaly. Neuro: There is no focal deficits. He has mild tremor in distal portion of the right upper extremity. ADDITIONAL DATA: 05/24: Chest x-ray shows moderate to large right lower lobe pulmonary opacities, most concerning for pneumonia. Hemoglobin is 11.3 with a WBC of 12.3 thousand and normal platelet count. BMP is normal. Hepatic panel is normal. ASSESSMENT AND PLAN: Right lower lobe pneumonia. On IV Rocephin/Zithromax and when necessary nebulizer treatments with DuoNeb. I will repeat his chest x-ray tomorrow. Type 2 diabetes mellitus. Under fair control. He is on diabetic diet, Levemir and when necessary Humalog. He is getting Lantus, glipizide and Glucophage at home. His fasting glucose from today was 125. Atrial fibrillation. Rate controlled. I will continue his warfarin. Parkinsons disease. He gets Sinemet. Debility. Physical therapy has been started. It will be continued in ECF. Acute retention of urine. To continue Coley catheter. I started him on Flomax. We will do a voiding trial in about 1 week. DISPOSITION: A referral has been made to ECF. He is very deconditioned. He has underlying Parkinsons disease. - Exam Vitals: Temp Pulse Resp BP Pulse Ox 98.1 F 64 16 145/70 94 05/27/18 19:04 05/27/18 19:04 05/27/18 19:04 05/27/18 19:04 05/27/18 19:04 Exam: xx - Assessment and Plan (1) Right lower lobe pneumonia Current Visit: Yes Status: Acute (2) Diabetes Current Visit: Yes Status: Acute (3) Afib Current Visit: Yes Status: Acute (4) Parkinson disease Current Visit: Yes Status: Chronic (5) Debility Current Visit: Yes Status: Acute (6) Acute retention of urine Current Visit: Yes Status: Acute - Time Spent with Patient Total time spent is greater than 50% in coordination of care (as documented) at patient's floor/unit and/or counseling patient: 25 - 35 minutes Plan of Care Discussed with: patient Internal Medicine: Result - Labs CBC & Chem 7: 05/27/18 05:20 05/27/18 05:20 Labs: Short CBC 05/27/18 Range/Units 05:20 WBC 12.3 H (4.3-11.1) K/mcL Hgb 11.3 L (12.9-16.9) g/dL Hct 34.6 L (37.5-50.1) % Plt Count 318 (140-400) K/mcL Neutrophils # 9.7 H (1.6-8.9) K/mcL BMP 05/27/18 05:20 Sodium 134 L Potassium 4.4 Chloride 98 Carbon Dioxide 29 BUN 13 Creatinine 0.51 L Glucose 109 H Calcium 8.6 Liver Function 05/27/18 Range/Units 05:20 Total Bilirubin 0.3 (0.3-1.0) mg/dL AST 29 (13-39) Units/L ALT 5 L (7-52) Units/L Alkaline Phosphatase 90 (34-104) Units/L Albumin 2.8 L (3.5-5.7) g/dL - ABG Interpretation ABG results: PT/INR, D-dimer PT 29.5 Seconds (9.4-12.1) H 05/27/18 05:20 Consult Discharge Plan - Plan Referrals: Sofy Blandon, BASTING MARKER [Primary Care Provider] - 06/10/18 10:30 am (1) Right lower lobe pneumonia Qualifiers: Pneumonia type: due to unspecified organism Qualified Code(s): J18.1 - Lobar pneumonia, unspecified organism (2) Diabetes Qualifiers: Diabetes mellitus type: type 2 Diabetes mellitus [facility] insulin use: with [facility] use Diabetes mellitus complication status: with unspecified complications Qualified Code(s): E11.8 - Type 2 diabetes mellitus with unspecified complications; Z79.4 - lobsterman (current) use of insulin (3) Afib Qualifiers: Atrial fibrillation type: chronic Qualified Code(s): I48.2 - Chronic atrial fibrillation
[2018-05-28] MEDS ORDERED: *HR* Promethazine 25 MG/ML VIAL IVP PRN (03:45)
[2018-05-28] MEDS: *HR* HYDROcodone/Acet 5/325 mg TABLET PO PRN ×2 (03:45→10:55)
[2018-05-28 04:36] LABS: INR 2.3; Prothrombin Time 26.2 Seconds (9.4-12.1)
[2018-05-28] MEDS: Insulin LISPRO 300 UNITS/3 ML VIAL SQ SCH ×4 (08:25→20:02)
[2018-05-28] MEDS: Azithromycin 250 MG TABLET PO SCH (10:53)
[2018-05-28] MEDS: Aspirin 81 MG TAB.CHEW PO SCH (10:54)
[2018-05-28] MEDS: Carbidopa/Levodopa 25/100 TABLET PO SCH ×3 (10:54→20:09)
[2018-05-28] MEDS: cefTRIAXone 1,000 MG in Water for inj. (sterile) 20 ML 10 ML IVP SCH (10:55)
[2018-05-28] MEDS: *HR* HYDROcodone/Acet 7.5/325 mg TABLET PO PRN ×2 (15:35→20:08)
[2018-05-28] MEDS ORDERED: *HR* Warfarin 2.5 MG TABLET PO ONE (18:00)
[2018-05-28] MEDS: Insulin DETEMIR 100 UNIT/ML X5UNITS SQ SCH (20:09)
--- NOTE | 2018-05-28 21:58 | Internal Med Progress Note ---
Hospitalist Progress Note - Encounter Date of Encounter: 05/28/18 Time of Encounter: 19:00 - Subjective Interval History: SUBJECTIVE: The patient continues physical therapy. It is very limited in our hospital. He will get more rehab in ECF. He is not able to walk, yet. Denies difficulty breathing. He is on room air oxygen. He does have mild cough but not wheezing. OBJECTIVE: Skin: Free of rash and discoloration. ENMT: Oral/pharyngeal mucosa is normal in appearance. Eyes: Sclera is white. There is no discharge from eyes. Respiratory: Normal breath sounds; no crackles or wheezes. CV: Heart is regular; no gallop or murmur. GI: Abdomen is soft and not tender. There is no palpable mass or visceromegaly. Neuro: There is no focal deficits. He has mild tremor in distal portion of the right upper extremity. ADDITIONAL DATA: 05/24: Chest x-ray shows moderate to large right lower lobe pulmonary opacities, most concerning for pneumonia. Pro time INR is 2.3. ASSESSMENT AND PLAN: Right lower lobe pneumonia. On IV Rocephin/Zithromax and when necessary nebulizer treatments with DuoNeb. I will repeat his chest x-ray tomorrow. Type 2 diabetes mellitus. Under fair control. He is on diabetic diet, Levemir and when necessary Humalog. He is getting Lantus, glipizide and Glucophage at home. His fasting glucose from today was 125. Atrial fibrillation. Rate controlled. I will continue his warfarin. Parkinsons disease. He gets Sinemet. Debility. Physical therapy has been started. It will be continued in ECF. Acute retention of urine. To continue Coley catheter. I started him on Flomax. We will do a voiding trial in about 1 week. DISPOSITION: A referral has been made to F. He is very deconditioned. He has underlying Parkinsons disease. - Exam Vitals: Temp Pulse Resp BP Pulse Ox 98.0 F 67 17 170/76 95 05/28/18 19:46 05/28/18 19:46 05/28/18 19:46 05/28/18 19:46 05/28/18 19:46 Exam: xx - Assessment and Plan (1) Right lower lobe pneumonia Current Visit: Yes Status: Acute (2) Diabetes Current Visit: Yes Status: Acute (3) Afib Current Visit: Yes Status: Acute (4) Parkinson disease Current Visit: Yes Status: Chronic (5) Debility Current Visit: Yes Status: Acute (6) Acute retention of urine Current Visit: Yes Status: Acute - Time Spent with Patient Total time spent is greater than 50% in coordination of care (as documented) at patient's floor/unit and/or counseling patient: 25 - 35 minutes Plan of Care Discussed with: patient Internal Medicine: Result - Labs CBC & Chem 7: 05/27/18 05:20 05/27/18 05:20 - ABG Interpretation ABG results: PT/INR, D-dimer PT 26.2 Seconds (9.4-12.1) H 05/28/18 03:32 Consult Discharge Plan - Plan Referrals: Sofy Blandon CNP [Primary Care Provider] - 06/10/18 10:30 am (1) Right lower lobe pneumonia Qualifiers: Pneumonia type: due to unspecified organism Qualified Code(s): J18.1 - Lobar pneumonia, unspecified organism (2) Diabetes Qualifiers: Diabetes mellitus type: type 2 Diabetes mellitus [facility] insulin use: with [facility] use Diabetes mellitus complication status: with unspecified complications Qualified Code(s): E11.8 - Type 2 diabetes mellitus with unspecified complications; Z79.4 - long-term (current) use of insulin (3) Afib Qualifiers: Atrial fibrillation type: chronic Qualified Code(s): I48.2 - Chronic atrial fibrillation
[2018-05-29] MEDS: *HR* HYDROcodone/Acet 7.5/325 mg TABLET PO PRN ×2 (02:28→08:56)
[2018-05-29] MEDS: Azithromycin 250 MG TABLET PO SCH (08:48)
[2018-05-29] MEDS: Carbidopa/Levodopa 25/100 TABLET PO SCH (08:48)
[2018-05-29] MEDS: Aspirin 81 MG TAB.CHEW PO SCH (08:48)
[2018-05-29] MEDS: cefTRIAXone 1,000 MG in Water for inj. (sterile) 20 ML 10 ML IVP SCH (08:49)
[2018-05-29] MEDS: Insulin LISPRO 300 UNITS/3 ML VIAL SQ SCH ×2 (09:11→10:52)
[2018-05-29 09:34] LABS: INR 2.3; Prothrombin Time 26.1 Seconds (9.4-12.1)
[2018-05-29 10:52] VITALS: BP 131/68
--- NOTE | 2018-05-29 12:30 | Discharge Summary ---
Orders not resulted at time of discharge: Pending orders 05/24/18 19:16 Culture,Blood [BC] Stat 05/24/18 20:15 Culture,Sputum with Gram Stain [RM] Stat 05/30/18 04:00 INR/PT [Prothrombin Time INR] [COAG] AM 0400 05/31/18 04:00 INR/PT [Prothrombin Time INR] [COAG] AM 0400 06/01/18 04:00 INR/PT [Prothrombin Time INR] [COAG] AM 0400 Date of Encounter: 05/29/18 Time of Encounter: 12:22 - Discharge Diagnosis (1) Right lower lobe pneumonia Priority: Primary Status: Acute Qualifiers: Pneumonia type: due to unspecified organism Qualified Code(s): J18.1 - Lobar pneumonia, unspecified organism (2) Diabetes Priority: Secondary Status: Chronic Qualifiers: Diabetes mellitus type: type 2 Diabetes mellitus terminal block 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 Olivares is a 73 year old male Discharge discussed with: patient, family - Time Spent with Patient Total time spent providing and/or coordinating discharge services: Greater than 30 minutes (40 minutes...) - Discharge Medications Home Medications: Acetaminophen [Pain Reliever] 500 mg PO Q6H PRN 05/25/18 [History] Aspirin [Adult Aspirin Regimen] 81 mg PO DAILY 05/25/18 [History] Bismuth Subsalicylate [Pepto-Bismol] 786 mg PO DAILY PRN 05/25/18 [History] Carbidopa/Levodopa 25/100 [Sinemet 25/100] 1 tab PO TID 05/25/18 [History] Clopidogrel [Plavix] 75 mg PO DAILY 05/25/18 [History] Insulin Glargine [Lantus] 15 unit SQ HS 05/25/18 [History] Lidocaine (Urojet) 1 appl RC TID 05/25/18 [History] Lisinopril [Zestril] 5 mg PO DAILY 05/25/18 [History] Magnesium Oxide [Magnesium] 400 mg PO DAILY 05/25/18 [History] Nitroglycerin [Nitrostat] 0.4 mg SL Q5M PRN 05/25/18 [History] Non-Formulary Medication 1 appl RC TID 05/25/18 [History] Simvastatin [Zocor] 10 mg PO HS 05/25/18 [History] Sotalol HCl [Betapace] 120 mg PO BID 05/25/18 [History] Warfarin [Coumadin] 2.5 mg PO [id number] 05/25/18 [History] glipiZIDE [Glipizide] 10 mg PO BID 05/25/18 [History] metFORMIN [Glucophage] 1,000 mg PO 0800 05/25/18 [History] Azithromycin [Zithromax] 500 mg PO DAILY 5 Days #5 tablet 05/29/18 [Rx] Potassium Chloride 20 meq PO BIDWM tab.er.prt 05/29/18 [Rx] Tamsulosin [Flomax] 0.4 mg PO DAILY capsule 05/29/18 [Rx] Allergies/Adverse Reactions: Allergy/AdvReac Type Severity Reaction Status Date / Time tirofiban Allergy Intermediate See Verified 05/25/18 14:04 [From Aggrastat Concentrate] Comments Date of admission: 05/26/18 16:08 Primary care physician: Sofy Blandon CNP Consults: 05/24/18 20:16 Consult to Engineering Program Analyst [CONS] Routine Reason for SW Consult: 73 year old M with Parkinson's brought in by for progressive fatigue and difficulty meeting his care needs at home, currently being treated for pneumonia. 05/25/18 09:42 Consult to Nurse Navigator [CONS] Routine Comment: Pneumonia 05/25/18 22:18 Consult to Physical Therapy [CONS] Routine Comment: Evaluate, develop and implement POC Reason for Consult: DEBILITY; HASN'T WALKED FOR ABOUT 1 WEEK... Does patient have active BEDREST order?: No Is patient medically & hemodynamically stable?: Yes Discharging clinician: Hemal Flores Anticipated date of discharge: 05/29/18 - Constitutional Vitals: Temp Pulse Resp BP Pulse Ox 98.9 F 70 16 131/68 100 05/29/18 10:49 05/29/18 10:49 05/29/18 10:49 05/29/18 10:49 05/29/18 10:49 General appearance: Present: A&O X 3, no acute distress, answers questions appropriately Exam: xx - Patient Status Disposition: Transfer SNF Condition: Fair Functional capacity at discharge: uses cane/walker (and assistance...) Overall status at discharge: patient is progressing back to baseline - Discharge Instructions Follow Up With: Sofy Blandon, FRETTED INSTRUMENT INSPECTOR [Primary Care Provider] - 06/10/18 10:30 am Additional Instructions: PROTIME -- IN 3-4 DAYS; THEN MONTHLY... DISCONTINUE GREWAL CATHETER -- IN 5-10 DAYS... CXR -- IN ABOUT 1 MONTH... - Diet and Activity Activity: ambulate only with your walker (AND ASSISTANCE...) Diet: diabetic diet - VTE Reasons for not Prescribing Prophylaxis: Not indicated-Anticoagulated or INR the rapeutic Deep Vein Thrombosis/Pulmonary Embolism Present on Admission: No
--- NOTE | 2018-05-29 12:40 | Physician Discharge Referral ---
ExtendedCare Referral Info Transfer To: [facility] Provider in Charge: Shira Flores MD Provider in Charge after Transfer: Other (an ECF physician...) - Diagnosis (1) Right lower lobe pneumonia Priority: Primary Status: Acute (2) Diabetes Priority: Secondary Status: Chronic (3) Afib Priority: Secondary Status: Chronic (4) Parkinson disease Status: Chronic (5) Debility Priority: Secondary Status: Acute (6) Acute retention of urine Priority: Secondary Status: Acute Prognosis: Fair Aware of Diagnosis: Patient, Family Aware of Prognosis: Patient, Family - Transfer Medications Home Medications: Acetaminophen [Pain Reliever] 500 mg PO Q6H PRN 05/25/18 [History] Aspirin [Adult Aspirin Regimen] 81 mg PO DAILY 05/25/18 [History] Bismuth Subsalicylate [Pepto-Bismol] 786 mg PO DAILY PRN 05/25/18 [History] Carbidopa/Levodopa 25/100 [Sinemet 25/100] 1 tab PO TID 05/25/18 [History] Clopidogrel [Plavix] 75 mg PO DAILY 05/25/18 [History] Insulin Glargine [Lantus] 15 unit SQ HS 05/25/18 [History] Lidocaine (Urojet) 1 appl RC TID 05/25/18 [History] Lisinopril [Zestril] 5 mg PO DAILY 05/25/18 [History] Magnesium Oxide [Magnesium] 400 mg PO DAILY 05/25/18 [History] Nitroglycerin [Nitrostat] 0.4 mg SL Q5M PRN 05/25/18 [History] Non-Formulary Medication 1 appl RC TID 05/25/18 [History] Simvastatin [Zocor] 10 mg PO HS 05/25/18 [History] Sotalol HCl [Betapace] 120 mg PO BID 05/25/18 [History] Warfarin [Coumadin] 2.5 mg PO SUMOTUWETHFRSA 05/25/18 [History] glipiZIDE [Glipizide] 10 mg PO BID 05/25/18 [History] metFORMIN [Glucophage] 1,000 mg PO 0800 05/25/18 [History] Azithromycin [Zithromax] 500 mg PO DAILY 5 Days #5 tablet 05/29/18 [Rx] Potassium Chloride 20 meq PO BIDWM tab.er.prt 05/29/18 [Rx] Tamsulosin [Flomax] 0.4 mg PO DAILY capsule 05/29/18 [Rx] Allergies/Adverse Reactions: Allergy/AdvReac Type Severity Reaction Status Date / Time tirofiban Allergy Intermediate See Verified 05/25/18 14:04 [From Aggrastat Concentrate] Comments - Respiratory Orders None Smoking Cessation: Smoking cessation has been advised. For more information, call the [place] Tobacco Quit Line at 6-336-LQHQ-NOW. - Advance Directives Code Status: Full Code - Mobility Orders Other (WITH A WALKER/ASSISTANCE...) - Rehabiliation Orders Rehab Potential: Fair Rehab Orders: Evaluation for Physical Therapy, Evaluation for Occupational Therapy - Diet Orders No Concentrated Sweets CERTIFICATION: I certify that the transfer of the above named patient to an Extended Care Facility is necessary for the continuing treatment of the diagnosis listed. The above information is true and accurate reflection of patient's current condition. Confidential - Redisclosure prohibited without a patient's written consent.
[2018-05-29] MEDS ORDERED: *HR* Warfarin 2.5 MG TABLET PO ONE (18:00)
== END 2018-05-29 14:34 | DRG 195 ==
LOC: EMEROOARM 17:51 → 2ANU 17:51 → SUATTDRO 19:37 → 2ANU 20:18
PROVIDERS: ADMIT Internal Medicine; ATTEND Internal Medicine

== ENCOUNTER 2018-10-20 15:48 | Inpatient (IN) ==
[2018-10-20] MEDS ORDERED: Isovue-370 500 ML BOTTLE IVP ONE (15:57)
[2018-10-20] MEDS ORDERED: *HR* FentaNYL (PF) 100 MCG/2 ML VIAL IVP ONE (15:57)
[2018-10-20] MEDS ORDERED: Ondansetron 4 MG/2 ML VIAL IVP ONE (15:58)
[2018-10-20] MEDS ORDERED: 0.9 % Sodium Chloride 1,000 ML IVC ONE (16:02)
--- NOTE | 2018-10-20 16:21 | Emergency Department Note ---
Disposition Clinical Impression: Abdominal pain Qualifiers: Abdominal location: left lower quadrant Qualified Code(s): R10.32 - Left lower quadrant pain Disposition: Still a Patient Condition: Fair Referrals: Sofy Blandon, AGUSTIN [Primary Care Provider] - Forms: ED Satisfaction Letter, Work/School Release Time of Disposition: 17:00 General Adult HPI - General Chief complaint: ED Abdominal Pain Stated complaint: abdominal pain Time Seen by Provider: 10/20/18 15:55 Source: patient, EMS Mode of arrival: ambulatory Limitations: no limitations Nursing Notes Reviewed: Yes Vital Signs Reviewed: Yes - History of Present Illness HPI Narrative: 73-year-old male presents to the emergency department with left lower quadrant abdominal pain. Said it happened yesterday and slowly worsened. Describing it as 8 out of 10 sharp stabbing pain radiating to his rectum. Said he has been having watery stools. Recently diagnosed with C. difficile did finish a 10 day course of vancomycin orally for the C. difficile yesterday. Still having loose stools. He does have history of ACS there is no chest pain or shortness of breath. Patient otherwise has no other complaints at this time. Does not know any fevers, nausea, vomiting. Pain Scale: 8 - Related Data Home Medications Medication Instructions Recorded Confirmed Carbidopa/Levodopa 25/100 [Sinemet 1 tab PO TID 05/25/18 10/20/18 25/100] Insulin Glargine [Lantus] 15 unit SQ HS 05/25/18 05/25/18 Magnesium Oxide [Magnesium] 400 mg PO DAILY 05/25/18 05/25/18 Nitroglycerin [Nitrostat] 0.4 mg SL Q5M PRN 05/25/18 05/25/18 Non-Formulary Medication 1 appl RC TID 05/25/18 05/25/18 Simvastatin [Zocor] 10 mg PO HS 05/25/18 10/20/18 Sotalol HCl [Betapace] 120 mg PO BID 05/25/18 10/20/18 Tamsulosin [Flomax] 0.4 mg PO BID 10/20/18 10/20/18 Allergies Allergy/AdvReac Type Severity Reaction Status Date / Time tirofiban Allergy Intermediate See Verified 05/25/18 14:04 [From Aggrastat Concentrate] Comments All systems ED: reviewed and negative except as stated. Review of Systems: As Per HPI Past Medical History - Past Medical History Attestation: Yes The following information was validated with the patient. Source: patient Medical history: Reports: atrial fibrillation, coronary artery disease, diabetes, hypertension, myocardial infarction Surgical history: Reports: angioplasty/stent Psychiatric history: Reports: no psych history - Social History Smoking Status: Never smoker Smokeless Tobacco Status: No Alcohol use: Reports: none Drug use: Reports: none Physical Exam - General Limitations: no limitations General appearance: alert - Head Head exam: atraumatic, normocephalic, normal inspection - Eye Eye exam: Present: normal appearance, PERRL, EOMI - ENT ENT exam: normal exam, normal oropharynx, mucous membranes moist - Neck Neck exam: Present: normal inspection, full ROM, trachea midline - Chest Chest inspection: Present: normal inspection, symmetric chest wall rise - Respiratory Respiratory exam: Present: normal lung sounds bilaterally - Cardiovascular Cardiovascular exam: Present: regular rate, normal rhythm, normal heart sounds - Abdominal Exam Abdominal exam: Present: soft, tenderness, normal bowel sounds. Absent: distention, guarding, rebound, rigidity Abdominal tenderness: Present: LLQ, mild - Extremities Exam Extremities exam: Present: normal inspection, full ROM. Absent: tenderness, pedal edema - Back Exam Back exam: Present: normal inspection, full ROM. Absent: tenderness - Neurological Exam Neurological exam: Present: alert, oriented X3 - Skin Skin exam: Present: warm, dry, intact, normal color Course Course Narrative: We will get basic labs including CBC BMP troponin lipase as well as lactate. We will get CT abdomen and pelvis with contrast rule out any signs of abscess. We will give patient total of 2 L of IV fluids to help him. Patient's stools are watery we will send a new sample for C. difficile at this time. We will also give patient fentanyl and Zofran for pain and nausea control per patient and family okay with this plan. Disposition pending results Vital Signs Temperature 98.3 F 10/20/18 15:52 Pulse Rate 80 10/20/18 15:52 Respiratory Rate 16 10/20/18 15:52 Blood Pressure 114/54 10/20/18 15:52 O2 Sat by Pulse Oximetry 95 10/20/18 15:52 Temperature 98.3 F 10/20/18 15:52 Pulse Rate 62 10/20/18 16:23 Respiratory Rate 16 10/20/18 16:23 Blood Pressure 112/62 10/20/18 16:23 O2 Sat by Pulse Oximetry 98 10/20/18 16:23 Oxygen Delivery Oxygen Delivery Room Air Medical Decision Making - MDM Narrative Medical decision making narrative: No labs or imaging is done at this time. Patient stable did receive IV fluids CAT scans pending also received fentanyl for pain control. Patient will be signed out to the day team physicians Dr. Smalls and Maximino please refer to their note for further plan and disposition. Patient stable at time of sign out. - Medical Records Medical records reviewed: Yes I reviewed the patient's medical records. - Lab Data Lab results reviewed: Yes I reviewed the patient's lab results. Result diagrams: 10/20/18 16:45 10/20/18 16:45 Lab Results 10/20/18 10/20/18 10/20/18 Range/Units 16:45 16:45 16:45 WBC 23.7 H (4.3-11.1) K/mcL RBC 3.20 L (4.19-5.50) M/mcL Hgb 10.1 L (12.9-16.9) g/dL Hct 31.2 L (37.5-50.1) % MCV 97.5 (83.0-100.0) fL MCH 31.6 (28.0-33.3) pg MCHC 32.4 (31.6-35.5) g/dL RDW 14.3 (11.5-14.5) % Plt Count 185 (140-400) K/mcL MPV 9.8 (9.4-12.4) fL Immature Gran % 1.1 (0-4) % Seg Neutrophils % 85.0 % Lymphocytes % 6.1 % Monocytes % 7.4 % Eosinophils % 0.1 % Basophils % 0.3 % Neutrophils # 20.2 H (1.6-8.9) K/mcL Lymphocytes # 1.5 (0.6-4.6) K/mcL Monocytes # 1.8 H (0.0-1.3) K/mcL Eosinophils # 0.0 (0.0-0.6) K/mcL Basophils # 0.1 (0.0-0.2) K/mcL Dohle Bodies Present A (Not Present) Sodium 135 L (136-145) mEq/L Potassium 3.1 L (3.5-5.1) mEq/L Chloride 101 (98-107) mEq/L Carbon Dioxide 28 (23-29) mEq/L BUN 21 (8-23) mg/dL Creatinine 0.67 L (0.70-1.30) mg/dL Est GFR ( Amer) > 60 (> 60) Est GFR (Non-Af Amer) > 60 (> 60) BUN/Creatinine Ratio 31 H (6-26) Glucose 97 (70-105) mg/dL Calculated Osmolality 283 (280-300) Lactic Acid 1.0 (0.5-2.2) mmol/L Calcium 8.0 L (8.6-10.3) mg/dL Troponin I (< 0.04) ng/mL Lipase (11-82) Units/L 10/20/18 Range/Units 16:45 WBC (4.3-11.1) K/mcL RBC (4.19-5.50) M/mcL Hgb (12.9-16.9) g/dL Hct (37.5-50.1) % MCV (83.0-100.0) fL MCH (28.0-33.3) pg MCHC (31.6-35.5) g/dL RDW (11.5-14.5) % Plt Count (140-400) K/mcL MPV (9.4-12.4) fL Immature Gran % (0-4) % Seg Neutrophils % % Lymphocytes % % Monocytes % % Eosinophils % % Basophils % % Neutrophils # (1.6-8.9) K/mcL Lymphocytes # (0.6-4.6) K/mcL Monocytes # (0.0-1.3) K/mcL Eosinophils # (0.0-0.6) K/mcL Basophils # (0.0-0.2) K/mcL Dohle Bodies (Not Present) Sodium (136-145) mEq/L Potassium (3.5-5.1) mEq/L Chloride (98-107) mEq/L Carbon Dioxide (23-29) mEq/L BUN (8-23) mg/dL Creatinine (0.70-1.30) mg/dL Est GFR ( Amer) (> 60) Est GFR (Non-Af Amer) (> 60) BUN/Creatinine Ratio (6-26) Glucose (70-105) mg/dL Calculated Osmolality (280-300) Lactic Acid (0.5-2.2) mmol/L Calcium (8.6-10.3) mg/dL Troponin I 0.26 H* (< 0.04) ng/mL Lipase 0 L (11-82) Units/L - EKG Data EKG #1 EKG attestation: Yes I reviewed and interpreted this EKG. EKG results narrative: EKG done at 1605 review myself and attending shows atrially paced rhythm at a rate of 65, DC interval 186, QRS 114, Q TC 506. There is no acute ST changes no acute T-wave changes no other signs of ischemia. No signs of hypertrophy, heartstring, heart block. No WPW/Brugada/HOCM. EKG unchanged from previous EKG done 05/24/18 Attestation Statement - Attestation Attestation: This documentation is done with the assistance of Dragon dictation. Despite efforts made to ensure accuracy, there may be inaccuracies in transportation museum helper or spelling and typographical errors. I examined this patient and my medical decision-making was reviewed with the Resident Physician. I agree with the documented findings, disposition and treatment plan as described except to the extent set forth below. Patient was seen and evaluated by Dr. Gonzalez, I agree with their evaluation and management plan, I supervised care the patient's stay. Patient presents today with left lo wer quadrant pain. Had C. difficile just finished oral vancomycin for that. He is pale here he does have stairs left lower quadrant but nonsurgical abdomen. We will give him fluids something for pain he does have some mucousy stool which we will send down for C. difficile. Also labs CT of his abdomen and then were going to sign him out to the evening ER physician for further management disposition. I reviewed the residents documentation and agree with the residents assessment and plan of care. I have personally had face to face time with the patient. (Brief History, Brief Exam, and MDM) I personally supervised and was present for the guillaume/critical portions of the following procedures completed by the resident: EKG was interpreted by the resident under my supervision, I agree with their interpretation.
[2018-10-20 17:01] LABS: Basophils # 0.1 K/mcL (0.0-0.2); Basophils % 0.3 %; Eosinophils % 0.1 %; Hematocrit 31.2 % (37.5-50.1); Hemoglobin 10.1 g/dL (12.9-16.9); Immature Granulocytes % 1.1 % (0-4); Lymphocytes # 1.5 K/mcL (0.6-4.6); Lymphocytes % 6.1 %; Mean Corpuscular HGB Conc 32.4 g/dL (31.6-35.5); Mean Corpuscular Hemoglobin 31.6 pg (28.0-33.3); Mean Corpuscular Volume 97.5 fL (83.0-100.0); Mean Platelet Volume 9.8 fL (9.4-12.4); Monocytes # 1.8 K/mcL (0.0-1.3); Monocytes % 7.4 %; Neutrophils # 20.2 K/mcL (1.6-8.9); Platelet Count 185 K/mcL (140-400); Red Cell Distribution Width 14.3 % (11.5-14.5); White Blood Count 23.7 K/mcL (4.3-11.1)
[2018-10-20 17:20] LABS: BUN/Creatinine Ratio 31 (6-26); Blood Urea Nitrogen 21 mg/dL (8-23); Carbon Dioxide 28 mEq/L (23-29); Chloride 101 mEq/L (98-107); Glucose 97 mg/dL (70-105); Osmolality,Calculated 283 (280-300); Potassium 3.1 mEq/L (3.5-5.1); Sodium 135 mEq/L (136-145); eGFR For African Americans > 60 (> 60); eGFR For Non-African Americans > 60 (> 60)
[2018-10-20 17:23] LABS: Dohle Bodies Present (Not Present)
[2018-10-20 17:27] LABS: Troponin I 0.26 ng/mL (< 0.04)
[2018-10-20] MEDS ORDERED: Vancomycin 500 MG, Sodium Chloride IRRigation 250 ML RC STA (18:51)
[2018-10-20] MEDS ORDERED: MetroNIDAZOLE 500 MG/100 ML 500 MG/100 ML BAG IVPB ONE (18:52)
[2018-10-20 20:15] LABS: Bilirubin,Urine Small (Negative); Blood,Urine Negative (Negative); Clarity,Urine Turbid (Clear); Color,Urine Dark Yellow (Yellow); Glucose,Urine (UA) Normal (Normal); Ketones,Urine Trace mg/dL (Negative); Leukocyte Esterase,Urine Moderate (Negative); Nitrite,Urine Negative (Negative); Protein,Urine Trace mg/dL (Neg-Trace); Specific Gravity,Urine > 1.030 (1.010-1.025); Urobilinogen,Urine Normal (Normal)
[2018-10-20 20:16] LABS: Bacteria,Urine Many per hpf (None-Few); RBC,Urine 0-3 per hpf (0-3); Squamous Epithelial Cell,Urine Many per lpf (None-Few); WBC,Urine 50-100 per hpf (0-3)
[2018-10-20 20:25] LABS: Hyaline Casts,Urine None Seen per lpf (None-Few); Mucus,Urine Many (Few); Yeast,Urine Few per hpf (None Seen)
[2018-10-20 21:02] LABS: Magnesium 1.4 mg/dL (1.6-2.6)
[2018-10-20] MEDS ORDERED: Ondansetron 4 MG/2 ML VIAL IVP PRN (21:28)
[2018-10-20] MEDS ORDERED: Naloxone 0.4 MG/ML INJ IVP PRN (21:28)
[2018-10-20] MEDS ORDERED: *HR* Dextrose 50 % in Water (Syg) 50 ML SYRINGE IVP PRN (21:32)
[2018-10-20] MEDS ORDERED: D5% in Water 1,000 ML IVC PRN (21:32)
[2018-10-20] MEDS ORDERED: Dextrose Gel 15 GM/37.5 ML TUBE PO PRN ×2 (21:32)
--- NOTE | 2018-10-20 21:48 | Internal Med History&Physical ---
Date of Encounter: 10/20/18 Time of Encounter: 22:30 Internal Medicine - H&P: HPI Chief complaint: C. difficile colitis Admitted From: Emergency Dept Plans for Post Hospital Care: Home History of present illness: Mr. Olivares is a 73 year old male Patient presented to the emergency room with diarrhea. He has been treated for C. difficile outpatient for the last few weeks, recently finishing a dose of oral vancomycin for 10 days. He had initially started to improve but since 3 days ago his symptoms have worsened and his diarrhea has worsened as well. He has become increasingly weak and his blood pressure was also starting to get low. He contacted his primary care provider who has been trying to manage the patient and he recommended that he go to the emergency room for further management. Patient's initial vital signs were within normal limits CBC: Notable for White count 23.7 BMP: Notable for sodium of 135 and a potassium of 3.1. Lactic acid 1.0 Calcium 8.0 Magnesium 1.4 Troponin 0.26 Lipase 0 EKG sinus rhythm, paced with QTC of 506. No ischemic changes. Stool C. difficile toxin positive Urinalysis: Negative nitrite, negative blood, 50-100 white blood cells, moderate leukocyte esterase. Culture indicated Chest x-ray showed right middle lobe opacity suspicious for pneumonia Abdomen/pelvis CT with contrast: 1. Pancolonic wall thickening consistent with pancolitis, and compatible with provided history of recent Clostridium difficile colitis. No bowel obstruction. 2. Complete collapse of the imaged right lower lobe. Chest CT is recommended to exclude hilar mass or right lower lobe endobronchial mass. 3. Mild periportal edema and trace perihepatic fluid. This may be due to volume overload state. Additionally, there is mild nonspecific gallbladder wall thickening which can be seen in the setting of over-hydration. Clinical correlation is recommended. If there is concern for superimposed cholecystitis, then right upper quadrant ultrasound could be obtained. 4. Prostate gland enlargement. Correlation with PSA is recommended. 5. Bladder wall thickening may be due to chronic bladder outlet obstruction from prostatomegaly or from cystitis. Urinalysis is recommended. Patient was started on rectal vancomycin as well as IV Flagyl. Because of the patient getting a CT with contrast for his abdomen further imaging to assess his collapsed lung was postponed. Patient received a 1 L bolus of IV fluids as well as 50 g of fentanyl for pain control. 40 mEq +10 mEq of potassium were given. He was admitted to the hospital for for further management. Upon my evaluation, patient is resting comfortably in the hospital bed in no acute distress. He denies chest pain, abdominal pain, nausea, vomiting, diarrhea and constipation. He has a significant history of coronary artery disease. He has undergone 2 cardiac bypasses and has 33 stents. He has a history of Parkinson's disease as well. He is a full code. Family is at bedside and helps with history. They deny significant past medical family history. Past Med Surg Social Fam HX - Past Medical History Medical history: atrial fibrillation, coronary artery disease, diabetes, hypertension, myocardial infarction Additional medical history: parkinsons Psychiatric history: no psych history - Past Surgical History Surgical History: angioplasty/stent Additional surgical history: 33 cardiac stents, double chamber pacemaker, rectal surgery - Social History Smoking Status: Never smoker Smokeless Tobacco Status: No Alcohol use: none Drug use: none Internal Medicine - H&P: Meds Carbidopa/Levodopa 25/100 [Sinemet 25/100] 1.5 tab PO TID 05/25/18 [History] Simvastatin [Zocor] 10 mg PO HS 05/25/18 [History] Apixaban [Eliquis] 5 mg PO BID 10/20/18 [History] Cholecalciferol (D-3) [Vitamin D] 1,000 unit PO DAILY 10/20/18 [History] Finasteride [Proscar] 5 mg PO DAILY 10/20/18 [History] Insulin Glargine,Hum.rec.anlog [Lantus Solostar] 0 - 15 unit SQ HS 10/20/18 [History] Magnesium Oxide [Magnesium] 500 mg PO DAILY 10/20/18 [History] Sotalol HCl [Betapace] 160 mg PO BID 10/20/18 [History] Tamsulosin [Flomax] 0.4 mg PO QPM 10/20/18 [History] Allergy/AdvReac Type Severity Reaction Status Date / Time tirofiban Allergy Intermediate See Verified 05/25/18 14:04 [From Aggrastat Concentrate] Comments All Systems PM: A 10-system review of systems was performed and is negative for pertinent findings except as documented above in the HPI. - Constitutional Vitals: Temp Pulse Resp BP Pulse Ox 98.3 F 60 16 109/49 97 10/20/18 15:52 10/20/18 21:14 10/20/18 21:14 10/20/18 21:14 10/20/18 21:14 General appearance: Present: cooperative, A&O X 3, pleasant, no acute distress, answers questions appropriately Exam: - - Head Head exam: Present: normal inspection - Eye Eye exam: Present: EOMI, normal appearance - Respiratory Respiratory exam: Present: decreased breath sounds, CTAB. Absent: rales, respiratory distress, rhonchi, wheezes Additional comments: Decreased breath sounds right lower lobe - Cardiovascular Cardiovascular exam: Present: irregular rhythm. Absent: diastolic murmur, systolic murmur - GI/Abdominal GI/Abdominal exam: Present: normal bowel sounds, soft. Absent: tenderness - Extremities Exam Extremities exam: Present: pedal edema, warm, radial pulses palpable and symmetrical. Absent: calf tenderness, tenderness Additional comments: 2+ pitting edema - Neurological Exam Neurological exam: Present: no focal deficits, strengths equal and symetr throughout. Absent: motor sensory deficit, facial droop, speech deficit - Skin Skin exam: Present: dry, normal color, warm Internal Med - H&P Results - Labs CBC & Chem 7: 10/20/18 16:45 10/20/18 16:45 Labs: Short CBC 10/20/18 Range/Units 16:45 WBC 23.7 H (4.3-11.1) K/mcL Hgb 10.1 L (12.9-16.9) g/dL Hct 31.2 L (37.5-50.1) % Plt Count 185 (140-400) K/mcL Neutrophils # 20.2 H (1.6-8.9) K/mcL BMP 10/20/18 16:45 Sodium 135 L Potassium 3.1 L Chloride 101 Carbon Dioxide 28 BUN 21 Creatinine 0.67 L Glucose 97 Calcium 8.0 L Cardiac Enzymes 10/20/18 Range/Units 16:45 Troponin I 0.26 H* (< 0.04) ng/mL Urine 10/20/18 Range/Units 20:06 Urine Color Dark Yellow (Yellow) Urine Clarity Turbid A (Clear) Urine pH 5.0 (5.0-8.0) pH Units Ur Specific Osprey > 1.030 H (1.010-1.025) Urine Protein Trace (Neg-Trace) mg/dL Urine Glucose (UA) Normal (Normal) mg/dL - Impressions ITS Impressions Abdomen/Pelvis CT 10/20/18 15:56 IMPRESSION: 1. Pancolonic wall thickening consistent with pancolitis, and compatible with provided history of recent Clostridium difficile colitis. No bowel obstruction. 2. Complete collapse of the imaged right lower lobe. Chest CT is recommended to exclude hilar mass or right lower lobe endobronchial mass. 3. Mild periportal edema and trace perihepatic fluid. This may be due to volume overload state. Additionally, there is mild nonspecific gallbladder wall thickening which can be seen in the setting of over-hydration. Clinical correlation is recommended. If there is concern for superimposed cholecystitis, then right upper quadrant ultrasound could be obtained. 4. Prostate gland enlargement. Correlation with PSA is recommended. 5. Bladder wall thickening may be due to chronic bladder outlet obstruction from prostatomegaly or from cystitis. Urinalysis is recommended. D/ / 10/20/2018 18:36:07 Dali Ennis MD / celia Interpreting Provider: Dali Ennis MD Chest X-Ray 10/20/18 15:56 IMPRESSION: 1. Right middle lobe opacity suspicious for pneumonia in the appropriate clinical setting. This has increased compared to the 05/24/[address] recommended for further evaluation. 2. Stable cardiomegaly. No heart failure. D/ / 10/20/2018 17:21:19 Dali Ennis MD / [email or web address] Interpreting Provider: Dali Ennis MD - Assessment and Plan (1) C. difficile diarrhea Current Visit: Yes Status: Acute Assessment and plan: Patient failed outpatient management with oral vancomycin. Started on rectal vancomycin as well as Flagyl here in the ER. Continue rectal vancomycin and Flagyl Continue to monitor for worsening signs of infection. Contact precautions Consider dificid if patient's symptoms do not improve (2) Elevated troponin Current Visit: Yes Status: Acute Assessment and plan: Patient denies chest pain, troponin elevated at 0.26. EKG nonischemic. Patient does have significant history of cardiac abnormalities. He has had 2 bypasses and has 33 stents. His last troponin in April was undetectable. Continue to trend troponin Cardiac monitoring (3) Hypokalemia Current Visit: Yes Status: Acute Assessment and plan: As Potassium 3.1 in the ER. Patient has received 50 mEq of IV fluids. Repeat a.m. labs Continue to supplement as needed (4) Hypomagnesemia Current Visit: Yes Status: Acute Assessment and plan: Magnesium low at 1.4. Replete as indicated Repeat magnesium level in the morning as (5) UTI (urinary tract infection) Current Visit: Yes Status: Acute Assessment and plan: Patient has had urinary tract infections in the past. Urinalysis demonstrates white blood cell elevation as well as moderate leukocyte esterase. Patient denies dysuria. Start ceftriaxone IV Follow-up urine culture Qualifiers: Urinary tract infection type: site unspecified Hematuria presence: without hematuria Qualified Code(s): N39.0 - Urinary tract infection, site not specified (6) Collapsed lung Current Visit: Yes Status: Acute Assessment and plan: Abdomen and pelvis CT demonstrated a complete collapse of the right lower lobe. Radiologist recommended chest CT to exclude hilar mass or right lower lobe endobronchial mass. Would benefit from chest CT with contrast. Because patient received a abdominal CT with contrast we will hold off on further contrast imaging until further hydration. CT chest with contrast in the morning to assess for possible mass Consider pulmonology consult (7) Diabetes Current Visit: No Status: Chronic Assessment and plan: Patient is an insulin dependent diabetic Monitor sugars Q6h NPO Low dose insulin sliding scale as needed Hold home meds. 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 insulin use: with longwall shearer operator use Diabetes mellitus complication status: without complication Qualified Code(s): E11.9 - Type 2 diabetes mellitus without complications; Z79.4 - assisted (current) use of insulin (8) Parkinson disease Current Visit: No Status: Chronic Assessment and plan: Continue home meds carbidopa/levodopa (9) Afib Current Visit: No Status: Chronic Assessment and plan: Continue Eliquis and sotalol Qualifiers: Atrial fibrillation type: chronic Qualified Code(s): I48.2 - Chronic atrial fibrillation (10) DVT prophylaxis Current Visit: Yes Status: Acute Assessment and plan: Continue Eliquis - Time Spent With Patient Total time spent is greater than 50% in coordination of care (as documented) at patient's floor/unit and/or counseling patient: Greater than 35 minutes
[2018-10-20] MEDS: cefTRIAXone 1,000 MG in Water for inj. (sterile) 10 ML IVP SCH (22:51)
[2018-10-20] MEDS: 0.9 % Sodium Chloride 1,000 ML IVC SCH (22:52)
[2018-10-20] MEDS: Apixaban 5 MG TABLET PO SCH (22:52)
[2018-10-21] MEDS: Vancomycin 500 MG, Sodium Chloride IRRigation 250 ML RC SCH ×2 (00:10→08:42)
[2018-10-21] MEDS: MetroNIDAZOLE 500 MG/100 ML 500 MG/100 ML BAG IVPB SCH ×2 (01:41→08:41)
[2018-10-21] MEDS: Insulin LISPRO 300 UNITS/3 ML VIAL SQ SCH ×5 (01:50→23:50)
[2018-10-21] MEDS: 0.9 % Sodium Chloride 1,000 ML IVC SCH (06:59)
[2018-10-21 07:42] LABS: Hematocrit 30.9 % (37.5-50.1); Hemoglobin 9.9 g/dL (12.9-16.9); Mean Corpuscular Hemoglobin 31.2 pg (28.0-33.3); Mean Corpuscular Volume 97.5 fL (83.0-100.0); Mean Platelet Volume 10.2 fL (9.4-12.4); Platelet Count 189 K/mcL (140-400); Red Blood Count 3.17 M/mcL (4.19-5.50); Red Cell Distribution Width 14.3 % (11.5-14.5); White Blood Count 16.9 K/mcL (4.3-11.1)
[2018-10-21 07:53] LABS: BUN/Creatinine Ratio 31 (6-26); Blood Urea Nitrogen 20 mg/dL (8-23); Calcium 7.9 mg/dL (8.6-10.3); Carbon Dioxide 26 mEq/L (23-29); Chloride 103 mEq/L (98-107); Glucose 80 mg/dL (70-105); Osmolality,Calculated 288 (280-300); Potassium 3.2 mEq/L (3.5-5.1); Sodium 138 mEq/L (136-145); eGFR For African Americans > 60 (> 60); eGFR For Non-African Americans > 60 (> 60)
[2018-10-21] MEDS: Carbidopa/Levodopa 25/100 TABLET PO SCH ×3 (08:40→22:12)
[2018-10-21] MEDS: Apixaban 5 MG TABLET PO SCH ×2 (08:41→22:13)
[2018-10-21] MEDS ORDERED: 0.9 % Sodium Chloride 1,000 ML IVC SCH (09:18)
--- NOTE | 2018-10-21 10:50 | Internal Med Progress Note ---
Hospitalist Progress Note - Encounter Date of Encounter: 10/21/18 Time of Encounter: 10:30 - Subjective Interval History: awake, very fatigued. Currently no abd pain. has rectal tube in place and being emptied nearly every hour per . No n/v. No blood in stool. He does not admit he had chest pain last night with pressure. none currently, no palpitations, sob or diaphroesis. He has had cough dry in nature for 6 months. no fevers or chills. Discussed lab and imaging results and today's plan with he and . - Exam Vitals: Temp Pulse Resp BP Pulse Ox 97.9 F 63 16 124/65 94 10/21/18 06:57 10/21/18 06:57 10/21/18 06:57 10/21/18 06:57 10/21/18 06:57 Exam: General: awake, alert, appears stated age HEENT:EOM intact, pupils equal, round, moist mucus membranes Cardiovascular:regular rate and rhythm, normal S1 & S2, no rubs, murmurs or gallops.trace pitting bl lower extremity edema Lungs:Normal breath sounds, no wheezes, or crackles. Normal respiratory effort on room air Abdomen:Soft, non-tender, non-distended, no rigidity, + bowel sounds, rectal tube with liquid brown output Neurological: AAOx3, CN grossly intact Skin:Normal color, no rash, no pallor, no jaundice - Assessment and Plan (1) C. difficile diarrhea Current Visit: Yes Status: Acute (2) UTI (urinary tract infection) Current Visit: Yes Status: Acute (3) Collapsed lung Current Visit: Yes Status: Acute (4) Hypokalemia Current Visit: Yes Status: Acute (5) NSTEMI (non-ST elevated myocardial infarction) Current Visit: Yes Status: Acute - Summary of Assessment and Plan Summary of Assessment and Plan: Mr Olivares is a 73 yo male with pmhx atrial fibrillation on AC, coronary artery disease w hx multiple bypass grafts and >30 stents, diabetes, hypertension, parkinson disease, with recent outpt course of vancomycin for c diff managed by his PCP and chronic cough x6mon. He is admitted with refractory C diff colitis, NSTEMI and incidentally found to have collapsed RLL of lung C diff colitis -I have discussed with Dr Barker who will see pt, dc rectal vanc, cont oral Vanc QID, stop flagyl, begin lactobacillus bid and questran 4g BID -npo and IVFs -monitor for bleeding on home AC Hypokalemia- further IV repletion ordered but he did not tolerate, changed to elixir, further IV mag today and cont to follow lytes NSTEMI, suspect Type II WI CAD hx s/p CABG and >30 PCIs -I have d/w Dr Peña whom will see in consultation -adynamic trops 0.26 on repeat checks, hold further trend -cont home eliquis, statin, sotalol and await further cards recs pAfib on Eliquis- cont sotalol and AC, monitor lytes and replete to goal K>4 and Mag >2 collapsed RLL of lung in setting of chronic cough CT chest with RLLL collapse, cannot rule out endobronchial lesion or mucus plug, appearance of possible atypical pna -I have d/w Pulm attending and he will see pt and give further recs, may need bronchoscopy -stable on room air Possible UTI -ucx pending, cont rocephin Parkinson disease- cont home meds BPH- cont flomx DM- hold sliding scale lantus home dose- SSI and prn hypoglycemics. vte ppx AC as above Internal Medicine: Result - Labs CBC & Chem 7: 10/21/18 06:41 10/21/18 06:41 Labs: Short CBC 10/20/18 10/21/18 Range/Units 16:45 06:41 WBC 23.7 H 16.9 H (4.3-11.1) K/mcL Hgb 10.1 L 9.9 L (12.9-16.9) g/dL Hct 31.2 L 30.9 L (37.5-50.1) % Plt Count 185 189 (140-400) K/mcL Neutrophils # 20.2 H (1.6-8.9) K/mcL BMP 10/20/18 10/21/18 16:45 06:41 Sodium 135 L 138 Potassium 3.1 L 3.2 L Chloride 101 103 Carbon Dioxide 28 26 BUN 21 20 Creatinine 0.67 L 0.65 L Glucose 97 80 Calcium 8.0 L 7.9 L Cardiac Enzymes 10/20/18 10/20/18 10/21/18 Range/Units 16:45 23:45 06:41 Troponin I 0.26 H* 0.26 H* 0.26 H* (< 0.04) ng/mL Urine 10/20/18 Range/Units 20:06 Urine Color Dark Yellow (Yellow) Urine Clarity Turbid A (Clear) Urine pH 5.0 (5.0-8.0) pH Units Ur Specific Reserve > 1.030 H (1.010-1.025) Urine Protein Trace (Neg-Trace) mg/dL Urine Glucose (UA) Normal (Normal) mg/dL - Impressions Impressions Abdomen/Pelvis CT 10/20/18 15:56 IMPRESSION: 1. Pancolonic wall thickening consistent with pancolitis, and compatible with provided history of recent Clostridium difficile colitis. No bowel obstruction. 2. Complete collapse of the imaged right lower lobe. Chest CT is recommended to exclude hilar mass or right lower lobe endobronchial mass. 3. Mild periportal edema and trace perihepatic fluid. This may be due to volume overload state. Additionally, there is mild nonspecific gallbladder wall thickening which can be seen in the setting of over-hydration. Clinical correlation is recommended. If there is concern for superimposed cholecystitis, then right upper quadrant ultrasound could be obtained. 4. Prostate gland enlargement. Correlation with PSA is recommended. 5. Bladder wall thickening may be due to chronic bladder outlet obstruction from prostatomegaly or from cystitis. Urinalysis is recommended. D/ / 10/20/2018 18:36:07 Dali Ennis MD / celia Interpreting Provider: Dali Ennis MD Chest X-Ray 10/20/18 15:56 IMPRESSION: 1. Right middle lobe opacity suspicious for pneumonia in the appropriate clinical setting. This has increased compared to the 05/24/[address] recommended for further evaluation. 2. Stable cardiomegaly. No heart failure. D/ / 10/20/2018 17:21:19 Dali Ennis MD / mirta Interpreting Provider: Dali Ennis MD Consult Discharge Plan - Plan Referrals: Sofy Blandon, CHECK PROCESSOR [Primary Care Provider] - (2) UTI (urinary tract infection) Qualifiers: Urinary tract infection type: site unspecified Hematuria presence: without hematuria Qualified Code(s): N39.0 - Urinary tract infection, site not sp ecified
[2018-10-21] MEDS ORDERED: Potassium Chloride Elixir 20 MEQ/15 ML UDC PO ONE (12:04)
--- NOTE | 2018-10-21 13:23 | Electrocardiograph Report ---
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
--- NOTE | 2018-10-21 13:35 | Pulmonology Consult Note ---
<Leonides Chamorro W - Last Filed: 10/21/18 15:21> Date of Encounter: 10/21/18 Medications and Allergies Carbidopa/Levodopa 25/100 [Sinemet 25/100] 1.5 tab PO TID 05/25/18 [History] Simvastatin [Zocor] 10 mg PO HS 05/25/18 [History] Apixaban [Eliquis] 5 mg PO BID 10/20/18 [History] Cholecalciferol (D-3) [Vitamin D] 1,000 unit PO DAILY 10/20/18 [History] Finasteride [Proscar] 5 mg PO DAILY 10/20/18 [History] Insulin Glargine,Hum.rec.anlog [Lantus Solostar] 0 - 15 unit SQ HS 10/20/18 [History] Magnesium Oxide [Magnesium] 500 mg PO DAILY 10/20/18 [History] Sotalol HCl [Betapace] 160 mg PO BID 10/20/18 [History] Tamsulosin [Flomax] 0.4 mg PO QPM 10/20/18 [History] Allergy/AdvReac Type Severity Reaction Status Date / Time tirofiban Allergy Intermediate See Verified 05/25/18 14:04 [From Aggrastat Concentrate] Comments All Systems: The remainder of the systems were reviewed and are negative Physical Examination Vital Signs: Vital Signs, Last 4 Hours Temp Pulse Resp BP Pulse Ox 10/21/18 12:38 97.4 F L 60 16 132/69 96 Results - Laboratory Findings CBC and BMP: 10/21/18 06:41 10/21/18 06:41 Abnormal lab findings: Abnormal lab results WBC 16.9 K/mcL (4.3-11.1) H 10/21/18 06:41 RBC 3.17 M/mcL (4.19-5.50) L 10/21/18 06:41 Hgb 9.9 g/dL (12.9-16.9) L 10/21/18 06:41 Hct 30.9 % (37.5-50.1) L 10/21/18 06:41 20.2 K/mcL (1.6-8.9) H 10/20/18 16:45 1.8 K/mcL (0.0-1.3) H 10/20/18 16:45 Present (Not Present) A 10/20/18 16:45 Sodium 135 mEq/L (136-145) L 10/20/18 16:45 Potassium 3.2 mEq/L (3.5-5.1) L 10/21/18 06:41 0.65 mg/dL (0.70-1.30) L 10/21/18 06:41 31 (6-26) H 10/21/18 06:41 POC Glucose 118 mg/dL (70-99) H 10/21/18 01:47 Calcium 7.9 mg/dL (8.6-10.3) L 10/21/18 06:41 Magnesium 1.4 mg/dL (1.6-2.6) L 10/20/18 16:45 0.26 ng/mL (< 0.04) H* 10/21/18 06:41 0 Units/L (11-82) L 10/20/18 16:45 Turbid (Clear) A 10/20/18 20:06 Ur Specific [place] > 1.030 (1.010-1.025) H 10/20/18 20:06 Trace mg/dL (Negative) H 10/20/18 20:06 Small (Negative) H 10/20/18 20:06 Ur Leukocyte Esterase Moderate (Negative) H 10/20/18 20:06 50-100 per hpf (0-3) H 10/20/18 20:06 Ur Squamous Epith Cells Many per lpf (None-Few) H 10/20/18 20:06 Many per hpf (None-Few) H 10/20/18 20:06 Many (Few) H 10/20/18 20:06 Few per hpf (None Seen) H 10/20/18 20:06 Ur Culture Indicated? YES (NO) A 10/20/18 20:06 Stl C. diff Tox B Gene Positive (Negative) A 10/20/18 16:38 - Microbiology Findings Microbiology Findings: Microbiology, Last 48 Hours 10/20/18 20:06 Urine Culture - Preliminary Urine,Catheterized (Straight) Culture is incubating. 10/20/18 16:38 Clostridium difficile Toxin A & B - Final Stool - Clinical Findings Intake & Output: Intake & Output 10/20/18 10/21/18 10/21/18 23:59 07:59 15:59 Intake Total 1115 / 1115 1264 / 1264 Output Total 200 / 200 Balance 1115 / 1115 1064 / 1064 Weight 78.8 kg 78.8 kg Consult Discharge Plan - Plan Referrals: Sofy Blandon, BLOOD BANK ATTENDANT [Primary Care Provider] - - Attending Attestation I examined this patient and my medical decision-making was reviewed with the Resident Physician. I agree with the documented findings, disposition and treatment plan as described except to the extent set forth below. We independently had [id number] contact with the patient Patient seen and examined at bedside Labs, radiology, chart personally reviewed. Impression/Recs: 1. Chronic bilateral bronchiolitis with chronic cough and right lower lobe collapse. Overall picture concerning for chronic aspiration recommend bronchoscopy this can be done on an urgent basis prior to discharge would not and antimicrobials for this at this time given underlying C. difficile infection. This pattern can also be seen in atypical infection such as nontuberculous mycobacterium or fungal however the clinical context I think a spiration is most likely patient will benefit from aggressive bronchopulmonary hygiene such as a flutter valve bronchodilator treatments incentive spirometry out of bed to chair. he Is somewhat limited acutely because of rectal collection system for C. difficile infection 2. CAD with troponin elevation cardiology evaluation once cleared can consider bronchoscopy but again since this is not urgent would recommend evaluation over the weekend before any planned bronchoscopy. 3. Parkinson's disease with aspiration risk recommend formal speech and swallow evaluation/modified barium swallow to rule out chronic aspiration 4. Recurrent C. difficile infection management per primary internal medicine consider ID consult Thanks for the consult we will continue to follow <Juarez Daniel S - Last Filed: 10/21/18 15:33> Date of Encounter: 10/21/18 Time of Encounter: 13:34 Assessment and Plan (1) Pneumonia Current Visit: No Status: Acute Pt admitted for sepsis secondary to c dif infxn - noted to have cough since 02/[address] scan recommending CT chest - at previous hospitalization, pt was diagnosed with aspiration PNA and was found to be aspirating on food was treated with augmentin at that time , however, s/s didn't completely resolve - denies retirement exposure, bird exposure, asbestosis exposure, family hx or personal hx of lung cancer, denies workplace exposure CT scan from 10/21 showing: Complete right lower lobe collapse new since chest x-ray of 05/24/2018. No discrete measurable obstructing mass is noted, however, an obstructing endobronchial lesion is still in the differential and cannot be excluded. Differential also includes mucus plugging. Innumerable tree-in-bud nodules throughout both lungs with patchy areas of left upper lobe airspace consolidation suggesting an atypical pneumonia. Small left pleural effusion. Differential includes atypical infxn such as mycoplasma vs viral infxn vs aspiration PNA - pt does have a hx of documented aspiration from [facility] in may - legionella and strep pneumo antigens negative Plan: - pulmonology recommending bronchoscopy at some point during this hospitaliz ation likely sometime next week, pulm to f/u with pt on Wednesday to check in on clinical course - will require cardiac clearance before intervention in the setting of elevated troponin - check mycoplasma - sputum cx pending - incentive spirometry ordered, can also use acapella - EIA, fungitell and galactomannin pending - speech consulted, MBS recommended - pt ok to eat from a pulm standpoint, no acute intervention required today - abx per primary for c dif infxn and uti Qualifiers: Pneumonia type: due to unspecified organism Laterality: right Lung location: lower lobe of lung Qualified Code(s): J18.1 - Lobar pneumonia, unspecified organism (2) Collapsed lung Current Visit: Yes Status: Acute CT scan from 10/21 showing: Complete right lower lobe collapse new since chest x-ray of 05/24/2018. No discrete measurable obstructing mass is noted, however, an obstructing endobronchial lesion is still in the differential and cannot be excluded. Differential also includes mucus plugging. Innumerable tree-in-bud nodules throughout both lungs with patchy areas of left upper lobe airspace consolidation suggesting an atypical pneumonia. Small left pleural effusion. See above. (3) Elevated troponin Current Visit: Yes Status: Acute Troponin 0.26 x 2. Cardiology consulted and has signed off. Likely demand ischmeia in the setting of sepsis. Previous ECHO from 04/2018 showing LVEF 60-65% Pulmonology recommending bronchoscopy at some point during hospital stay and pt will need cardiac clearance prior to procedure. (4) Abnormal CT of the chest Current Visit: Yes Status: Acute See imaging noted above. (5) Leukocytosis Current Visit: Yes Status: Acute Likely secondary to c dif infxn vs aspiration pna. Qualifiers: Leukocytosis type: unspecified Qualified Code(s): D72.829 - Elevated white blood cell count, unspecified (6) Parkinson disease Current Visit: No Status: Chronic Pt with hx of parkinson's on sinemet. Likely contributing to aspiration. Speech therapy consulted. (7) Sepsis Current Visit: Yes Status: Acute Sepsis secondary to c dif infxn. On vanc/flagyl. Management as per primary. Qualifiers: Sepsis type: sepsis due to unspecified organism Qualified Code(s): A41.9 - Sepsis, unspecified organism (8) DVT prophylaxis Current Visit: Yes Status: Acute on abixaban. (9) Afib Current Visit: No Status: Chronic On eliquis and sotalol. Follows with cardiology at [facility]. Qualifiers: Atrial fibrillation type: chronic Qualified Code(s): I48.2 - Chronic atrial fibrillation (10) Clostridium difficile infection Current Visit: Yes Status: Acute See above for sepsis. Management per primary. History of Present Illness Consult date: 10/21/18 Requesting physician: Qian High Reason for consult: pneumonia, abnormal CXR/CT Chief complaint: c dif History of present illness: Mr. Olivares is a 73 year old male with PMH of atrial fibrillation, coronary artery disease, diabetes, hypertension, and myocardial infarction. He was admitted on 10/20/18 after failing outpt treatment for c dif. He came to the emergency room with diarrhea after taking PO vancomycin x 10 days, diarrhea continued for another four days before seeking further treatment. He has been having multiple BM a day and is very weak. PCP recommended further inpatient management. Since coming to the ER it was also discovered that he has continued to have a produ ctive cough since 02/2018. He was diagnosed with aspiration in May while he was at [facility]. He does have a difficult time swallowing and sometimes struggles with solid foods. He denies any retirement exposure, tb exposure, previous work exposure like asbestosis or chemical exposure. He also denies pet birds or hamsters. Pulmonology consulted for abnormal findings on CT scan including tree in bud infiltrates and complete collapse of the imaged right lower lobe. Past Med Surg Social Fam HX - Past Medical History Medical history: atrial fibrillation, coronary artery disease, diabetes, hypertension, myocardial infarction Additional medical history: parkinsons Psychiatric history: no psych history - Past Surgical History Surgical History: angioplasty/stent Additional surgical history: 33 cardiac stents, double chamber pacemaker, rectal surgery - Social History Smoking Status: Never smoker Smokeless Tobacco Status: No Alcohol use: none Drug use: none All Systems: The remainder of the systems were reviewed and are negative - Constitutional Constitutional: weight loss (8-10 lbs), no chills, no fever(s) - EENT Nose, mouth and throat: dysphagia, no epistaxis - Cardiovascular Cardiovascular: dyspnea on exertion, no chest pain, no dyspnea - Respiratory Respiratory: cough, dyspnea on exertion, chest congestion, excessive phlegm production - Gastrointestinal Gastrointestinal: abdominal pain, diarrhea, nausea, vomiting - Genitourinary Genitourinary: no dysuria, no hematuria - Musculoskeletal Musculoskeletal: weakness, arthralgias, myalgias - Integumentary Integumentary: no rash, no jaundice - Neurological Neurological: frequent falls, weakness - Hematologic/Lymphatic Hematologic/Lymphatic: no easy bleeding, no easy bruising Physical Examination Vital Signs: Vital Signs, Last 4 Hours Temp Pulse Resp BP Pulse Ox 10/21/18 12:38 97.4 F L 60 16 132/69 96 General appearance: no acute distress, alert Eyes: nonicteric ENT: oropharynx dry Auscultation: bilateral: diminished breath sounds, other (some coarse breath sounds thruout and diminished breath sounds r>l) Cardiovascular: regular rate and rhythm Gastrointestinal: soft, non-tender, non-distended Integumentary: normal Extremities: edema (1+ pitting edema bilaterally) Musculoskeletal: no deformities normal mental status, non-focal exam mood appropriate, affect normal Results - Laboratory Findings CBC and BMP: 10/21/18 06:41 10/21/18 06:41 Abnormal lab findings: Abnormal lab results WBC 16.9 K/mcL (4.3-11.1) H 10/21/18 06:41 RBC 3.17 M/mcL (4.19-5.50) L 10/21/18 06:41 Hgb 9.9 g/dL (12.9-16.9) L 10/21/18 06:41 Hct 30.9 % (37.5-50.1) L 10/21/18 06:41 20.2 K/mcL (1.6-8.9) H 10/20/18 16:45 1.8 K/mcL (0.0-1.3) H 10/20/18 16:45 Present (Not Present) A 10/20/18 16:45 Sodium 135 mEq/L (136-145) L 10/20/18 16:45 Potassium 3.2 mEq/L (3.5-5.1) L 10/21/18 06:41 0.65 mg/dL (0.70-1.30) L 10/21/18 06:41 31 (6-26) H 10/21/18 06:41 POC Glucose 118 mg/dL (70-99) H 10/21/18 01:47 Calcium 7.9 mg/dL (8.6-10.3) L 10/21/18 06:41 Magnesium 1.4 mg/dL (1.6-2.6) L 10/20/18 16:45 0.26 ng/mL (< 0.04) H* 10/21/18 06:41 0 Units/L (11-82) L 10/20/18 16:45 Turbid (Clear) A 10/20/18 20:06 Ur Specific [place] > 1.030 (1.010-1.025) H 10/20/18 20:06 Trace mg/dL (Negative) H 10/20/18 20:06 Small (Negative) H 10/20/18 20:06 Ur Leukocyte Esterase Moderate (Negative) H 10/20/18 20:06 50-100 per hpf (0-3) H 10/20/18 20:06 Ur Squamous Epith Cells Many per lpf (None-Few) H 10/20/18 20:06 Many per hpf (None-Few) H 10/20/18 20:06 Many (Few) H 10/20/18 20:06 Few per hpf (None Seen) H 10/20/18 20:06 Ur Culture Indicated? YES (NO) A 10/20/18 20:06 Stl C. diff Tox B Gene Positive (Negative) A 10/20/18 16:38 - Microbiology Findings Microbiology Findings: Microbiology, Last 48 Hours 10/20/18 20:06 Urine Culture - Preliminary Urine,Catheterized (Straight) Culture is incubating. 10/20/18 16:38 Clostridium difficile Toxin A & B - Final Stool - Clinical Findings Intake & Output: Intake & Output 10/20/18 10/21/18 10/21/18 23:59 07:59 15:59 Intake Total 1115 / 1115 1264 / 1264 Output Total 200 / 200 Balance 1115 / 1115 1064 / 1064 Weight 78.8 kg 78.8 kg
--- NOTE | 2018-10-21 13:47 | Cardiology Consult Note ---
<Ryley Webster - Last Filed: 10/21/18 13:55> Date of Encounter: 10/21/18 Time of Encounter: 13:30 Assessment and Plan (1) C. difficile diarrhea Current Visit: Yes Status: Acute Per Cardiology: Admitted for C. difficile diarrhea apparently ongoing since June 2018. Management per primary service. (2) UTI (urinary tract infection) Current Visit: Yes Status: Acute Per Cardiology: Management per primary service. Qualifiers: Urinary tract infection type: site unspecified Hematuria presence: without hematuria Qualified Code(s): N39.0 - Urinary tract infection, site not specified (3) Right lower lobe pneumonia Current Visit: No Status: Acute Per Cardiology: Chest x-ray reviewed. Management per primary service. Qualifiers: Pneumonia type: due to unspecified organism Qualified Code(s): J18.1 - Lobar pneumonia, unspecified organism (4) Collapsed lung Current Visit: Yes Status: Acute Per Cardiology: CT results noted and indicates right lower lobe collapse. Pulmonary consult pending. Clinically appears stable. (5) Elevated troponin Current Visit: Yes Status: Acute Per Cardiology: Troponins flat and adynamic of 0.263 in setting of C. difficile colitis, UTI, pneumonia, right lower lobe lung collapse. Suspect type II demand ischemia. No cardiac rehabilitation consult warranted. EF preserved on echo 04/2018. Patient and prefer to follow-up with her primary cotton grower at [facility]. No further recommendations. Cardiology signing off, reconsult as needed (6) CAD (coronary artery disease) of artery bypass graft Current Visit: Yes Status: Chronic Per Cardiology: History CAD with CABG 5 in 1993 at [facility] and redo CABG in 2002. Reported history of 33 stents and last catheterization 4 years ago. On statin. Not on asa d/t on AC. On Sotalol for afib. Qualifiers: [place] vs. transplanted heart: [place] heart Associated angina: angina presence unspecified Qualified Code(s): I25.810 - Atherosclerosis of coronary artery bypass graft(s) without angina pectoris (7) Afib Current Visit: No Status: Chronic Per Cardiology: Apparent history of atrial fibrillation. On sotalol and anticoagulation of Eliquis. Continue to follow with primary cotton grower. Qualifiers: Atrial fibrillation type: chronic Qualified Code(s): I48.2 - Chronic atrial fibrillation (8) Parkinson disease Current Visit: No Status: Chronic Per Cardiology: Has hx of Parkinson. Lives at home with . Rec PT/SW consult. Discussion w patient/family: The assessment and plan as outlined above was discussed with the patient and/or family members who expressed understanding and agreement. All questions were answered. Thank you for involving us in the care of your patient. Please call with any questions. History of Present Illness Consult date: 10/21/18 Consult reason: Troponin Chief complaint: Diarrhea History of present illness: Mr. Olivares is a 73 year old male with a relevant past medical history of atrial fibrillation-- on sotalol and Eliquis, coronary artery disease/CABG, diabetes, hypertension, parkinson's disease. Recently managed for C-Diff. Cardiology consult for mild troponin elevation. Patient seen with at bedside. They report chronic persistent cough nonproductive for the past 6 months. He reports history of CAD with CABG 5 in 1993 and redo CABG 2002. He reports a history 33 total stents with reported last catheterization 4 years ago. All cardiac evaluation has been completed at [facility]. He denies any overall increase in his baseline chest pain. He does report some increased weakness and fatigue for the past few weeks with increased diarrhea due to his C. difficile. He reports an episode of "going out" or going to the bathroom. denied any seizure-like activity. No acute trauma. He denied any palpitations, tunnel vision, headache. Reports just overall felt weak. He does report he came to us with a walker due to his Parkinson's. Diagnoses initially C-diff in June 2018 and now minute with recurrence. Past Med Surg Social Fam HX - Past Medical History Attestation: Yes The following information was validated with the patient. Source: patient, old records reviewed, obtained from family Medical history: atrial fibrillation, coronary artery disease, diabetes, hypertension, myocardial infarction Additional medical history: parkinsons Psychiatric history: no psych history - Past Surgical History Surgical History: angioplasty/stent Additional surgical history: 33 cardiac stents, double chamber pacemaker, rectal surgery - Social History Smoking Status: Never smoker Smokeless Tobacco Status: No Alcohol use: none Drug use: none Medications and Allergies Carbidopa/Levodopa 25/100 [Sinemet 25/100] 1.5 tab PO TID 05/25/18 [History] Simvastatin [Zocor] 10 mg PO HS 05/25/18 [History] Apixaban [Eliquis] 5 mg PO BID 10/20/18 [History] Cholecalciferol (D-3) [Vitamin D] 1,000 unit PO DAILY 10/20/18 [History] Finasteride [Proscar] 5 mg PO DAILY 10/20/18 [History] Insulin Glargine,Hum.rec.anlog [Lantus Solostar] 0 - 15 unit SQ HS 10/20/18 [History] Magnesium Oxide [Magnesium] 500 mg PO DAILY 10/20/18 [History] Sotalol HCl [Betapace] 160 mg PO BID 10/20/18 [History] Tamsulosin [Flomax] 0.4 mg PO QPM 10/20/18 [History] Allergy/AdvReac Type Severity Reaction Status Date / Time tirofiban Allergy Intermediate See Verified 05/25/18 14:04 [From Aggrastat Concentrate] Comments All Systems Review: The remainder of the systems were reviewed and are negative - Constitutional Constitutional: fatigue, weakness - Cardiovascular Cardiovascular: as per HPI, chest pain at rest, chest pain with exertion - Gastrointestinal Gastrointestinal: diarrhea Physical Examination Vital Signs, Last 4 Hours Temp Pulse Resp BP Pulse Ox 10/21/18 12:38 97.4 F L 60 16 132/69 96 General: Conversant, No Apparent Distress HEENT: Atraumatic, Normocephaly, Mucus Membranes Moist Neck: No JVD, Normal carotid pulses Cardiac: Reg Rate and Rhythm, Normal S1 and S2, No Murmur Lungs: Normal Breath Sounds, No Wheeze, Rales, Rhonchi, Other (Positive dry nonproductive cough noted) Neuro: Alert and responsive Abdomen: Soft, Non-Tender Skin: No rashes noted on visualized skin Musculoskeletal: No Chest Wall Tenderness Extremities: No Clubbing, No Cyanosis, Normal Pulses, Other (+1-2 nonpitting bilateral LE) Results 10/21/18 06:41 10/21/18 06:41 Lab Results Laboratory Tests 10/20/18 10/20/18 10/20/18 16:38 16:45 16:45 WBC 23.7 H Hgb Hct Potassium Creatinine Est GFR (Non-Af Amer) Magnesium Troponin I 0.26 H* Ur Leukocyte Esterase Ur Culture Indicated? Stl C. diff Tox B Gene Positive A 10/20/18 10/20/18 10/21/18 20:06 23:45 06:41 WBC 16.9 H Hgb 9.9 L Hct 30.9 L Potassium Creatinine Est GFR (Non-Af Amer) Magnesium Troponin I 0.26 H* Ur Leukocyte Esterase Moderate H Ur Culture Indicated? YES A Stl C. diff Tox B Gene 10/21/18 10/21/18 10/21/18 06:41 06:41 06:41 WBC Hgb Hct Potassium 3.2 L Creatinine 0.65 L Est GFR (Non-Af Amer) > 60 Magnesium 1.6 Troponin I 0.26 H* Ur Leukocyte Esterase Ur Culture Indicated? Stl C. diff Tox B Gene ITS Impressions Abdomen/Pelvis CT 10/20/18 15:56 IMPRESSION: 1. Pancolonic wall thickening consistent with pancolitis, and compatible with provided history of recent Clostridium difficile colitis. No bowel obstruction. 2. Complete collapse of the imaged right lower lobe. Chest CT is recommended to exclude hilar mass or right lower lobe endobronchial mass. 3. Mild periportal edema and trace perihepatic fluid. This may be due to volume overload state. Additionally, there is mild nonspecific gallbladder wall thickening which can be seen in the setting of over-hydration. Clinical correlation is recommended. If there is concern for superimposed cholecystitis, then right upper quadrant ultrasound could be obtained. 4. Prostate gland enlargement. Correlation with PSA is recommended. 5. Bladder wall thickening may be due to chronic bladder outlet obstruction from prostatomegaly or from cystitis. Urinalysis is recommended. D/ / 10/20/2018 18:36:07 Dali Ennis MD / celia Interpreting Provider: Dali Ennis MD Chest X-Ray 10/20/18 15:56 IMPRESSION: 1. Right middle lobe opacity suspicious for pneumonia in the appropriate clinical setting. This has increased compared to the 05/24/[address] recommended for further evaluation. 2. Stable cardiomegaly. No heart failure. D/ / 10/20/2018 17:21:19 Dali Ennis MD / bcarter Interpreting Provider: Dali Ennis MD Chest CT 10/21/18 11:00 IMPRESSION: Complete right lower lobe collapse new since chest x-ray of 05/24/2018. No discrete measurable obstructing mass is noted, however, an obstructing endobronchial lesion is still in the differential and cannot be excluded. Differential also includes mucus plugging. Bronchoscopy should be considered for additional evaluation. Innumerable tree-in-bud nodules throughout both lungs with patchy areas of left upper lobe airspace consolidation suggesting an atypical pneumonia. Small left pleural effusion. Enlarged precarinal lymph node that may represent reactive lymphadenopathy. Recommend follow-up. D/ : / 10/21/2018 11:53:10 Tucker Mejia MD / Jagruti Sotomayor Interpreting Provider: Tucker Mejia MD Active Medications Apixaban (Eliquis) 5 mg PO BID MIKA Stop: 04/21/19 21:46 Last Admin: 10/21/18 08:41 Dose: 5 mg Documented by: Carbidopa/Levodopa (Sinemet) 1.5 each PO TID MIKA Stop: 04/22/19 09:01 Last Admin: 10/21/18 08:40 Dose: 1.5 each Documented by: Cholestyramine Resin (Cholestyramine) 4 gm PO BIDAC MIKA Stop: 04/22/19 16:31 Dextrose/Water (Dextrose 50% (Syg)) 25 ml IVP AD PRN PRN Reason: Hypoglycemia Stop: 04/21/19 21:33 Glucagon (Glucagen) 1 mg IM ONCE PRN PRN Reason: Hypoglycemia Stop: 04/21/19 21:33 Glucose (Gluctose) 15 gm PO ONCE PRN PRN Reason: Hypoglycemia Stop: 04/21/19 21:33 Glucose (Gluctose) 30 gm PO ONCE PRN PRN Reason: Hypoglycemia Stop: 04/21/19 21:33 Dextrose (Dextrose 5%) 1,000 mls @ 100 mls/hr IVC .Q10H PRN PRN Reason: HYPOGLYCEMIA Stop: 04/21/19 21:33 Ceftriaxone Sodium 1,000 mg/ (Sterile Water) 10 mls @ 600 mls/hr IVP HS [facility] Stop: 04/21/19 22:01 Last Infusion: 10/20/18 22:56 Dose: Infused Documented by: Sodium Chloride (0.9 % Sodium Chloride) 1,000 mls @ 75 mls/hr IVC .[id number] [facility] Stop: 10/21/18 22:37 Insulin Human Lispro (Humalog) 0 units SQ Q6HR [facility]; Protocol Stop: 04/22/19 00:01 Last Admin: 10/21/18 13:50 Dose: Not Given Documented by: Lactobacillus Acidophilus/Rhamnosus (Culturelle) 1 each PO BID [facility] Stop: 04/22/19 13:46 Naloxone HCl (Narcan) 0.4 mg IVP Q2MPRN PRN PRN Reason: SEE COMMENTS Stop: 04/21/19 21:29 Ondansetron HCl (Zofran) 4 mg IVP Q8HR PRN PRN Reason: Nausea And Vomiting Stop: 04/21/19 21:29 Simvastatin (Zocor) 10 mg PO HS [facility] Stop: 04/22/19 21:01 Sotalol HCl (Betapace) 160 mg PO BID [facility] Stop: 04/22/19 09:01 Last Admin: 10/21/18 08:41 Dose: 160 mg Documented by: Tamsulosin HCl (Flomax) 0.4 mg PO QPM [facility]; Protocol Stop: 04/22/19 18:01 Vancomycin HCl (Firvanq) 250 mg PO QID [facility] Stop: 04/22/19 17:01 - Imaging and Cardiology Echo: report reviewed - EKG Interpretation EKG results cardiology: personally reviewed, other (atrial paced) Consult Discharge Plan - Plan Referrals: Sofy Blandon, HIGH SCHOOL HV[employer] R INSTRUCTOR [Primary Care Provider] - < A - Last Filed: 10/22/18 22:03> Date of Encounter: 10/22/18 - Attending Attestation I have personally performed a face to face evaluation on this patient. I have reviewed and agree with the documented findings and care plan as documented by the HIGH SCHOOL HV[employer] R INSTRUCTOR. History and Exam by me shows: 73-year-old gentleman admitted with sepsis secondary to C. difficile colitis, pneumonia and UTI. Noted to have elevated troponin. This is likely type II NSTEMI from demand ischemia. Treat sepsis with antibiotics. Trend troponin. Obtain echocardiogram. Thanks, Matt Peña MD [facility] Assessment and Plan Discussion w patient/family: The assessment and plan as outlined above was discussed with the patient and/or family members who expressed understanding and agreement. All questions were answered. Thank you for involving us in the care of your patient. Please call with any questions. History of Present Illness History of present illness: Mr. Olivares is a 73 year old male All Systems Review: The remainder of the systems were reviewed and are negative Physical Examination Vital Signs, Last 4 Hours Temp Pulse Resp BP Pulse Ox 10/22/18 19:09 97.7 F 60 20 149/76 91 Results 10/22/18 02:28 10/22/18 02:28 Lab Results 10/22/18 10/22/18 02:28 02:28 WBC 13.8 H Hgb 10.7 L Hct 33.2 L Plt Count 200 Sodium 136 Potassium 3.7 Chloride 104 Carbon Dioxide 25 BUN 18 Creatinine 0.69 L Glucose 112 H Calcium 7.8 L Magnesium 1.7
[2018-10-21] MEDS ORDERED: Ipratropium/Albuterol Neb 3 ML IH PRN (15:31)
[2018-10-21] MEDS: Lactobacillus 1 EACH CAP.SPRINK PO SCH ×2 (16:22→22:12)
[2018-10-21] MEDS: Cholestyramine 4 GM POWD.PACK PO SCH (16:23)
[2018-10-21] MEDS: Vancomycin Oral Soln 125 MG/2.5 ML UDC PO SCH ×2 (16:25→23:46)
--- NOTE | 2018-10-21 16:38 | Gastroenterology Consult Note ---
Date of Encounter: 10/21/18 Time of Encounter: 16:38 - Assessment and plan (1) Abnormal CT of the chest Current Visit: Yes Status: Acute Assessment and plan: Secondary to the active colitis. Vancomycin as above (2) C. difficile diarrhea Current Visit: Yes Status: Acute Assessment and plan: Vancomycin regimen as outlined (3) Clostridium difficile infection Current Visit: Yes Status: Acute Assessment and plan: Vanccomycin (4) Elevated troponin Current Visit: Yes Status: Acute Assessment and plan: Per cardiology, hospitalist service - Time Spent With Patient Total time spent is greater than 50% in coordination of care (as documented) at patient's floor/unit and/or counseling patient: 25 - 35 minutes GI History of Present Illness - Data of Consult Requesting Physician: Qian High - Consult Narrative Reason for consult: Diarrhea History of present illness: Mr. Olivares is a 73 year old male with multiple medical problems who developed C Difficile colitis - saw his family doctor and was started on Vanco 250 qid for 10 days. Started feeling better at day 4 and got progressively better till about 2 days after the Vanco ran out. He then presented here and was admitted. Patient is immunocompromised and recommend vancomycin 250 qid for 4 weeks and then taper over the next 4. Add Questran twice daily and Lactobacilus. Past Med Surg Social Fam HX - Past Medical History Medical history: atrial fibrillation, coronary artery disease, diabetes, hypertension, myocardial infarction Additional medical history: parkinsons Psychiatric history: no psych history - Past Surgical History Surgical History: angioplasty/stent Additional surgical history: 33 cardiac stents, double chamber pacemaker, rectal surgery - Social History Smoking Status: Never smoker Smokeless Tobacco Status: No Alcohol use: none Drug use: none Review of Systems: Fatigue, diarrhea, weakness generalized and bloating - Constitutional Vitals: Temp Pulse Resp BP Pulse Ox 97.4 F L 60 16 132/69 96 10/21/18 12:38 10/21/18 12:38 10/21/18 12:38 10/21/18 12:38 10/21/18 12:38 - Head Head exam: Present: atraumatic, normal inspection, normocephalic - Eye Eye exam: Present: EOMI, PERRL, sclera anicteric - Neck Neck exam general surgery: Present: supple, trachea midline - Respiratory Respiratory exam: Present: CTAB - Cardiovascular Cardiovascular exam: Present: +S1, +S2 - GI/Abdominal GI/Abdominal exam: Present: hyperactive bowel sounds, normal bowel sounds, soft, no peritoneal signs Results - Labs CBC & Chem 7: 10/23/18 05:11 10/24/18 02:38 Labs: Last Result 10/21/18 10/21/18 06:41 06:41 Calcium 7.9 L Troponin I 0.26 H* Entire Visit 10/21/18 06:41 Hgb 9.9 L Hct 30.9 L - Impressions Impressions Abdomen/Pelvis CT 10/20/18 15:56 IMPRESSION: 1. Pancolonic wall thickening consistent with pancolitis, and compatible with provided history of recent Clostridium difficile colitis. No bowel obstruction. 2. Complete collapse of the imaged right lower lobe. Chest CT is recommended to exclude hilar mass or right lower lobe endobronchial mass. 3. Mild periportal edema and trace perihepatic fluid. This may be due to volume overload state. Additionally, there is mild nonspecific gallbladder wall thickening which can be seen in the setting of over-hydration. Clinical correlation is recommended. If there is concern for superimposed cholecystitis, then right upper quadrant ultrasound could be obtained. 4. Prostate gland enlargement. Correlation with PSA is recommended. 5. Bladder wall thickening may be due to chronic bladder outlet obstruction from prostatomegaly or from cystitis. Urinalysis is recommended. D/ / 10/20/2018 18:36:07 Dali Ennis MD / celai Interpreting Provider: Dali Ennis MD Chest X-Ray 10/20/18 15:56 IMPRESSION: 1. Right middle lobe opacity suspicious for pneumonia in the appropriate clinical setting. This has increased compared to the 05/24/[address] recommended for further evaluation. 2. Stable cardiomegaly. No heart failure. D/ / 10/20/2018 17:21:19 Dali Ennis MD / mirta Interpreting Provider: Dali Ennis MD Chest CT 10/21/18 11:00 IMPRESSION: Complete right lower lobe collapse new since chest x-ray of 05/24/2018. No discrete measurable obstructing mass is noted, however, an obstructing endobronchial lesion is still in the differential and cannot be excluded. Differential also includes mucus plugging. Bronchoscopy should be considered for additional evaluation. Innumerable tree-in-bud nodules throughout both lungs with patchy areas of left upper lobe airspace consolidation suggesting an atypical pneumonia. Small left pleural effusion. Enlarged precarinal lymph node that may represent reactive lymphadenopathy. Recommend follow-up. D/ / 10/21/2018 11:53:10 Tucker Mejia MD / Jagruti Sotomayor Interpreting Provider: Tucker Mejia MD Consult Discharge Plan - Plan Referrals: Sofy Blandon, GEAR CODING MACHINE OPERATOR [Primary Care Provider] -
--- NOTE | 2018-10-21 19:00 | Event Note ---
Date of Encounter: 10/21/18 Time of Encounter: 19:00 Notified by pt RN that his son is confused as to why he can't eat. Plan for npo discussed in detail by myself with pt and his this morning whom clearly understood that due to severe refractory c diff colitis he is npo status. While pulm evaluated and ordered FURNITURE FABRICATOR and recs given that pt could eat- PT IS NOT CLEARED FOR A REGULAR DIET DUE TO HIS GI ILLNESS. RN was correct in her informing family he is bowel rest currently and will update son that Pulm and FURNITURE FABRICATOR recs are for WHEN he is able to eat. Pt may have clears and diet to be held if any abd pain, nause or emesis occurs overnight.
[2018-10-21] MEDS: cefTRIAXone 1,000 MG in Water for inj. (sterile) 10 ML IVP SCH (22:11)
[2018-10-22 03:03] LABS: Basophils # 0.1 K/mcL (0.0-0.2); Basophils % 0.6 %; Eosinophils # 0.3 K/mcL (0.0-0.6); Hematocrit 33.2 % (37.5-50.1); Hemoglobin 10.7 g/dL (12.9-16.9); Immature Granulocytes % 0.5 % (0-4); Lymphocytes # 1.6 K/mcL (0.6-4.6); Lymphocytes % 11.6 %; Mean Corpuscular HGB Conc 32.2 g/dL (31.6-35.5); Mean Corpuscular Hemoglobin 31.5 pg (28.0-33.3); Mean Corpuscular Volume 97.6 fL (83.0-100.0); Mean Platelet Volume 9.7 fL (9.4-12.4); Monocytes # 0.6 K/mcL (0.0-1.3); Monocytes % 4.3 %; Neutrophils # 11.2 K/mcL (1.6-8.9); Platelet Count 200 K/mcL (140-400); Red Cell Distribution Width 14.2 % (11.5-14.5); White Blood Count 13.8 K/mcL (4.3-11.1)
[2018-10-22 03:31] LABS: BUN/Creatinine Ratio 26 (6-26); Blood Urea Nitrogen 18 mg/dL (8-23); Calcium 7.8 mg/dL (8.6-10.3); Carbon Dioxide 25 mEq/L (23-29); Chloride 104 mEq/L (98-107); Glucose 112 mg/dL (70-105); Magnesium 1.7 mg/dL (1.6-2.6); Osmolality,Calculated 285 (280-300); Potassium 3.7 mEq/L (3.5-5.1); Sodium 136 mEq/L (136-145); eGFR For African Americans > 60 (> 60); eGFR For Non-African Americans > 60 (> 60)
--- NOTE | 2018-10-22 07:46 | Internal Med Progress Note ---
Hospitalist Progress Note - Encounter Date of Encounter: 10/22/18 Time of Encounter: 09:00 - Subjective Interval History: awake, at bedside. He has improved energy today. diarrhea output is beginning to slow. no abd pain, n/v or fevers/chills. Discussed today's results, treatment plan for day in detail and answered all questions. Encouraged pt to update family whom is not present so that when they are here this evening they understand plan. - Exam Vitals: Temp Pulse Resp BP Pulse Ox 98.4 F 63 16 166/86 97 10/22/18 07:15 10/22/18 07:15 10/22/18 07:15 10/22/18 07:15 10/22/18 07:15 Exam: General: awake, alert, appears stated age Cardiovascular:regular rate and rhythm, normal S1 & S2, trace pitting bl lower extremity edema Lungs:Normal breath sounds, no wheezes, or crackles. Normal respiratory effort on room air Abdomen:Soft, non-tender, non-distended, no rigidity, + bowel sounds, rectal tube with liquid brown output Neurological: AAOx3, CN grossly intact, masked facies Skin:Normal color, no rash, no pallor, no jaundice - Assessment and Plan (1) C. difficile diarrhea Current Visit: Yes Status: Acute (2) UTI (urinary tract infection) Current Visit: Yes Status: Acute (3) Collapsed lung Current Visit: Yes Status: Acute (4) Hypokalemia Current Visit: Yes Status: Resolved (5) NSTEMI (non-ST elevated myocardial infarction) Current Visit: Yes Status: Acute - Summary of Assessment and Plan Summary of Assessment and Plan: Mr Olivares is a 73 yo male with pmhx atrial fibrillation on AC, coronary artery disease w hx multiple bypass grafts and >30 stents, diabetes, hypertension, parkinson disease, with recent outpt course of vancomycin for c diff managed by his PCP and chronic cough x6mon. He is admitted with refractory C diff colitis, NSTEMI and incidentally found to have collapsed RLL of lung C diff colitis -Dr Barker following, rec for oral Vanc QID, stop flagyl, lactobacillus bid and questran 4g BID -clear liquid diet today Hypokalemia- resolved, PO KCL today to get to gaol of 4 with afib hx NSTEMI, Type II [place] CAD hx s/p CABG and >30 PCIs -seen by cards, no intervention required -cont home eliquis, statin, sotalol -outpt fu pAfib on Eliquis- cont sotalol and AC, monitor lytes and replete to goal K>4 and Mag >2 collapsed RLL of lung in setting of chronic cough CT chest with RLLL collapse, cannot rule out endobronchial lesion or mucus plug, appearance of possible atypical pna -Pulm following, as d/w attending today will need bronch just prior to dc when other acute issues stabilized -no abx required at this time in setting of C Diff -stable on room air Possible UTI -ucx prelim, cont rocephin empirically given risk vs benefit at this time, currently c diff sxs improving Parkinson disease- cont home meds BPH- cont flomx DM- hold sliding scale lantus home dose- SSI and prn hypoglycemics. vte ppx AC as above Internal Medicine: Result - Labs CBC & Chem 7: 10/22/18 02:28 10/22/18 02:28 Labs: Short CBC 10/22/18 Range/Units 02:28 WBC 13.8 H (4.3-11.1) K/mcL Hgb 10.7 L (12.9-16.9) g/dL Hct 33.2 L (37.5-50.1) % Plt Count 200 (140-400) K/mcL Neutrophils # 11.2 H (1.6-8.9) K/mcL BMP 10/21/18 10/22/18 06:41 02:28 Sodium 138 136 Potassium 3.2 L 3.7 Chloride 103 104 Carbon Dioxide 26 25 BUN 20 18 Creatinine 0.65 L 0.69 L Glucose 80 112 H Calcium 7.9 L 7.8 L Cardiac Enzymes 10/21/18 Range/Units 06:41 Troponin I 0.26 H* (< 0.04) ng/mL - Impressions Impressions Abdomen/Pelvis CT 10/20/18 15:56 IMPRESSION: 1. Pancolonic wall thickening consistent with pancolitis, and compatible with provided history of recent Clostridium difficile colitis. No bowel obstruction. 2. Complete collapse of the imaged right lower lobe. Chest CT is recommended to exclude hilar mass or right lower lobe endobronchial mass. 3. Mild periportal edema and trace perihepatic fluid. This may be due to volume overload state. Additionally, there is mild nonspecific gallbladder wall thickening which can be seen in the setting of over-hydration. Clinical correlation is recommended. If there is concern for superimposed cholecystitis, then right upper quadrant ultrasound could be obtained. 4. Prostate gland enlargement. Correlation with PSA is recommended. 5. Bladder wall thickening may be due to chronic bladder outlet obstruction from prostatomegaly or from cystitis. Urinalysis is recommended. D/ / 10/20/2018 18:36:07 Dali Ennis MD / celia Interpreting Provider: Dali Ennis MD Chest CT 10/21/18 11:00 IMPRESSION: Complete right lower lobe collapse new since chest x-ray of 05/24/2018. No discrete measurable obstructing mass is noted, however, an obstructing endobronchial lesion is still in the differential and cannot be excluded. Differential also includes mucus plugging. Bronchoscopy should be considered for additional evaluation. Innumerable tree-in-bud nodules throughout both lungs with patchy areas of left upper lobe airspace consolidation suggesting an atypical pneumonia. Small left pleural effusion. Enlarged precarinal lymph node that may represent reactive lymphadenopathy. Recommend follow-up. D/ : / 10/21/2018 11:53:10 Tucker Mejia MD / Jagruti Sotomayor Interpreting Provider: Tucker Mejia MD Consult Discharge Plan - Plan Referrals: Sofy Blandon, SPIRAL BINDER [Primary Care Provider] - (2) UTI (urinary tract infection) Qualifiers: Urinary tract infection type: site unspecified Hematuria presence: without hematuria Qualified Code(s): N39.0 - Urinary tract infection, site not specified
[2018-10-22] MEDS ORDERED: Potassium Chloride Elixir 20 MEQ/15 ML UDC PO ONE (07:47)
[2018-10-22] MEDS: Insulin LISPRO 300 UNITS/3 ML VIAL SQ SCH ×4 (08:09→23:32)
[2018-10-22] MEDS: Carbidopa/Levodopa 25/100 TABLET PO SCH ×3 (08:18→20:43)
[2018-10-22] MEDS: Cholestyramine 4 GM POWD.PACK PO SCH ×2 (08:19→15:27)
[2018-10-22] MEDS: Vancomycin Oral Soln 125 MG/2.5 ML UDC PO SCH ×4 (08:19→20:44)
[2018-10-22] MEDS: Lactobacillus 1 EACH CAP.SPRINK PO SCH ×2 (08:19→20:43)
[2018-10-22] MEDS: Apixaban 5 MG TABLET PO SCH ×2 (08:19→20:43)
[2018-10-22] MEDS: cefTRIAXone 1,000 MG in Water for inj. (sterile) 10 ML IVP SCH (20:44)
[2018-10-23 05:42] LABS: Mean Corpuscular HGB Conc 32.4 g/dL (31.6-35.5); Mean Corpuscular Hemoglobin 30.6 pg (28.0-33.3); Mean Corpuscular Volume 94.4 fL (83.0-100.0); Mean Platelet Volume 9.9 fL (9.4-12.4); Platelet Count 204 K/mcL (140-400); Red Cell Distribution Width 13.8 % (11.5-14.5); Segmented Neutrophils % 74.8 %; White Blood Count 9.8 K/mcL (4.3-11.1)
[2018-10-23 05:43] LABS: Basophils # 0.1 K/mcL (0.0-0.2); Basophils % 0.6 %; Eosinophils # 0.3 K/mcL (0.0-0.6); Eosinophils % 2.8 %; Immature Granulocytes % 0.6 % (0-4); Lymphocytes # 1.5 K/mcL (0.6-4.6); Monocytes # 0.6 K/mcL (0.0-1.3); Monocytes % 6.2 %; Neutrophils # 7.3 K/mcL (1.6-8.9)
[2018-10-23 06:11] LABS: Alanine Aminotransferase < 3 Units/L (7-52); Albumin 2.5 g/dL (3.5-5.7); Albumin/Globulin Ratio 0.9 (1.1-2.2); Alkaline Phosphatase 68 Units/L (34-104); Aspartate Amino Transferase 6 Units/L (13-39); BUN/Creatinine Ratio 17 (6-26); Bilirubin,Total 0.4 mg/dL (0.3-1.0); Blood Urea Nitrogen 9 mg/dL (8-23); Calcium 7.8 mg/dL (8.6-10.3); Carbon Dioxide 30 mEq/L (23-29); Chloride 101 mEq/L (98-107); Globulin 2.9 g/dL (2.4-3.5); Glucose 145 mg/dL (70-105); Osmolality,Calculated 283 (280-300); Potassium 3.4 mEq/L (3.5-5.1); Sodium 136 mEq/L (136-145); Total Protein 5.4 g/dL (6.4-8.9); eGFR For African Americans > 60 (> 60); eGFR For Non-African Americans > 60 (> 60)
[2018-10-23] MEDS: Vancomycin 500 MG, Sodium Chloride IRRigation 250 ML RC SCH (06:36)
[2018-10-23] MEDS ORDERED: Potassium Chloride Elixir 20 MEQ/15 ML UDC PO ONE (07:27)
--- NOTE | 2018-10-23 07:29 | Internal Med Progress Note ---
Hospitalist Progress Note - Encounter Date of Encounter: 10/23/18 Time of Encounter: 09:40 - Subjective Interval History: awake, , son and friend at bedside. He has a bright affect today. He is feeling better today in he has more energy. denies abd pain, n,v. continued diarrhea with watery brown stool in rectal tube. He ate cream of wheat for breakfast and felt great after. he denies any cp, pressure, sob or palpitations. discussed treatment plan with family and pt, all questions answered. - Exam Vitals: Temp Pulse Resp BP Pulse Ox 97.5 F L 73 14 166/99 94 10/23/18 07:10 10/23/18 07:10 10/23/18 07:10 10/23/18 07:10 10/23/18 07:10 Exam: General: awake, alert, appears stated age Cardiovascular:regular rate and rhythm, normal S1 & S2, no pitting bl lower extremity edema Lungs:Normal breath sounds, no wheezes, or crackles. Normal respiratory effort on room air Abdomen:Soft, non-tender, non-distended, + bowel sounds, rectal tube with liquid brown output Neurological: AAOx3, masked facies - Assessment and Plan (1) C. difficile diarrhea Current Visit: Yes Status: Acute (2) UTI (urinary tract infection) Current Visit: Yes Status: Suspected (3) Collapsed lung Current Visit: Yes Status: Acute (4) Hypokalemia Current Visit: Yes Status: Acute (5) NSTEMI (non-ST elevated myocardial infarction) Current Visit: Yes Status: Acute - Summary of Assessment and Plan Summary of Assessment and Plan: Mr Olivares is a 73 yo male with pmhx atrial fibrillation on AC, coronary artery disease w hx multiple bypass grafts and >30 stents, diabetes, hypertension, parkinson disease, with recent outpt course of vancomycin for c diff managed by his PCP and chronic cough x6mon. He is admitted with refractory C diff colitis, NSTEMI and incidentally found to have collapsed RLL of lung C diff colitis -Dr Barker following, oral Vanc QID, lactobacillus bid and questran 4g BID -full liquids -willr emove rectal tube when stool starts to form and output slows Hypokalemia-po repletion today, check k and mag in am NSTEMI, Type II [place] CAD hx s/p CABG and >30 PCIs -seen by cards, no intervention required -cont home eliquis, statin, sotalol -outpt fu -will have cards re eval prior to bronch, check trop in am pAfib on Eliquis- cont sotalol and AC, monitor lytes and replete to goal prn collapsed RLL of lung in setting of chronic cough CT chest with RLLL collapse, cannot rule out endobronchial lesion or mucus plug, appearance of possible atypical pna -Pulm following, as d/w attending will need bronch just prior to dc when other acute issues stabilized -no abx required at this time in setting of C Diff, sputum + gpc -stable on room air Possible UTI -ucx prelim gpc, cont rocephin empirically given risk vs benefit at this time, currently c diff sxs improving Parkinson disease- cont home meds BPH- cont flomax DM- hold sliding scale lantus home dose- SSI and prn hypoglycemics. vte ppx AC as above Internal Medicine: Result - Labs CBC & Chem 7: 10/23/18 05:11 10/23/18 05:11 Labs: Short CBC 10/23/18 Range/Units 05:11 WBC 9.8 (4.3-11.1) K/mcL Hgb 11.0 L (12.9-16.9) g/dL Hct 34.0 L (37.5-50.1) % Plt Count 204 (140-400) K/mcL Neutrophils # 7.3 (1.6-8.9) K/mcL BMP 10/23/18 05:11 Sodium 136 Potassium 3.4 L Chloride 101 Carbon Dioxide 30 H BUN 9 Creatinine 0.54 L Glucose 145 H Calcium 7.8 L Liver Function 10/23/18 Range/Units 05:11 Total Bilirubin 0.4 (0.3-1.0) mg/dL AST 6 L (13-39) Units/L ALT < 3 L (7-52) Units/L Alkaline Phosphatase 68 (34-104) Units/L Albumin 2.5 L (3.5-5.7) g/dL Consult Discharge Plan - Plan Referrals: Sofy Blandon, PIANO REG[employer]ATOR [Primary Care Provider] - ___ (2) UTI (urinary tract infection) Qualifiers: Urinary tract infection type: site unspecified Hematuria presence: without hematuria Qualified Code(s): N39.0 - Urinary tract infection, site not specified
[2018-10-23] MEDS: Cholestyramine 4 GM POWD.PACK PO SCH ×2 (08:20→16:40)
[2018-10-23] MEDS: Apixaban 5 MG TABLET PO SCH ×2 (08:20→20:48)
[2018-10-23] MEDS: Insulin LISPRO 300 UNITS/3 ML VIAL SQ SCH ×4 (08:20→20:49)
[2018-10-23] MEDS: Lactobacillus 1 EACH CAP.SPRINK PO SCH ×2 (08:20→20:48)
[2018-10-23] MEDS: Carbidopa/Levodopa 25/100 TABLET PO SCH ×3 (08:20→20:48)
[2018-10-23] MEDS: Vancomycin Oral Soln 125 MG/2.5 ML UDC PO SCH ×4 (08:21→20:47)
[2018-10-23 17:22] LABS: A.galactomannan Ag Index 0.07
[2018-10-23] MEDS: cefTRIAXone 1,000 MG in Water for inj. (sterile) 10 ML IVP SCH (20:48)
[2018-10-24 03:43] LABS: BUN/Creatinine Ratio 10 (6-26); Blood Urea Nitrogen 5 mg/dL (8-23); Calcium 7.8 mg/dL (8.6-10.3); Carbon Dioxide 28 mEq/L (23-29); Chloride 103 mEq/L (98-107); Glucose 170 mg/dL (70-105); Magnesium 1.4 mg/dL (1.6-2.6); Osmolality,Calculated 285 (280-300); Potassium 3.8 mEq/L (3.5-5.1); Sodium 137 mEq/L (136-145); eGFR For African Americans > 60 (> 60); eGFR For Non-African Americans > 60 (> 60)
[2018-10-24 03:45] LABS: Troponin I 0.11 ng/mL (< 0.04)
--- NOTE | 2018-10-24 07:22 | Internal Med Progress Note ---
Hospitalist Progress Note - Encounter Date of Encounter: 10/24/18 Time of Encounter: 08:10 - Subjective Interval History: awake, family at bedside, he cont to have improved energy daily. no fevers, chills, abd pain or n/v. tolerated full liquid diet. Denies chest pain, pressure, sob, palpitations. No saavedra, vision changes or chest pain with sbps 150- 170s. Family notes he previously was on treatment for HTN but with parkinson diagnosis he is so sensitive to meds and was getting hypotensive that doctor stopped treatment. discussed with RN, there has been a decrease in stool output over slot shift supervisor into this morning - Exam Vitals: Temp Pulse Resp BP Pulse Ox 98 F 60 21 167/79 99 10/24/18 05:03 10/24/18 05:03 10/24/18 05:03 10/24/18 06:05 10/24/18 05:03 Exam: General: awake, alert, appears stated age Cardiovascular:regular rate and rhythm, normal S1 & S2, no pitting bl lower extremity edema Lungs:Normal breath sounds, Normal respiratory effort on room air Abdomen:Soft, non-tender, non-distended, + bowel sounds, rectal tube with liquid green/brown output Neurological: AAOx3, masked facies - Assessment and Plan (1) C. difficile diarrhea Current Visit: Yes Status: Acute (2) UTI (urinary tract infection) Current Visit: Yes Status: Acute (3) Collapsed lung Current Visit: Yes Status: Acute (4) Hypokalemia Current Visit: Yes Status: Resolved (5) NSTEMI (non-ST elevated myocardial infarction) Current Visit: Yes Status: Acute - Summary of Assessment and Plan Summary of Assessment and Plan: Mr Olivaers is a 73 yo male with pmhx atrial fibrillation on AC, coronary artery disease w hx multiple bypass grafts and >30 stents, diabetes, hypertension, parkinson disease, with recent outpt course of vancomycin for c diff managed by his PCP and chronic cough x6mon. He is admitted with refractory C diff colitis, NSTEMI and incidentally found to have collapsed RLL of lung C diff colitis -GI following, I have d/w team this morning and provided update to weekend progress, oral Vanc QID, lactobacillus bid and questran 4g BID -full liquids and may be able to advance to soft diet for dinner later today -will remove rectal tube when stool starts to form and output slows, maintain for now NSTEMI, Type II [place] CAD hx s/p CABG and >30 PCIs -seen by cards, no intervention required -cont home eliquis, statin, sotalol -outpt fu -trop 10/24 now down trended to 0.1s, I have updated cardiology team as to need for pre procedural risk assessment with bronch likely later this week HTN previously reated outpt but meds stopped due to autonomic dysfunction with Parkinson disease and hypotensive episodes asx sbps 150s-170s -cont sotalol -have asked cardiology to weigh in on treatment, appreciate input pAfib on Eliquis- cont sotalol and AC, monitor lytes collapsed RLL of lung in setting of chronic cough CT chest with RLLL collapse, cannot rule out endobronchial lesion or mucus plug, appearance of possible atypical pna -Pulm following, as d/w attending will need bronch just prior to dc when other acute issues stabilized -no abx required at this time in setting of C Diff, sputum + gpc -stable on room air UTI E Faecalis -last dose of rocephin 10/24 at 2100 then will be dc'd Hypomagnesemia- mag 1.4- IV repletion 4 g today and cont to monitor Parkinson disease- cont home meds BPH- cont flomax DM- hold sliding scale lantus home dose- SSI and prn hypoglycemics. vte ppx AC as above Internal Medicine: Result - Labs CBC & Chem 7: 10/23/18 05:11 10/24/18 02:38 Labs: BMP 10/24/18 02:38 Sodium 137 Potassium 3.8 Chloride 103 Carbon Dioxide 28 BUN 5 L Creatinine 0.49 L Glucose 170 H Calcium 7.8 L Cardiac Enzymes 10/24/18 Range/Units 02:38 Troponin I 0.11 H* (< 0.04) ng/mL Consult Discharge Plan - Plan Referrals: Sofy Blandon, HYDROGRAPHER [Primary Care Provider] - (2) UTI (urinary tract infection) Qualifiers: Urinary tract infection type: site unspecified Hematuria presence: without hematuria Qualified Code(s): N39.0 - Urinary tract infection, site not specified
[2018-10-24] MEDS: Cholestyramine 4 GM POWD.PACK PO SCH ×2 (07:52→20:01)
[2018-10-24] MEDS: Insulin LISPRO 300 UNITS/3 ML VIAL SQ SCH ×4 (07:55→23:22)
[2018-10-24] MEDS: Apixaban 5 MG TABLET PO SCH ×2 (09:55→23:24)
[2018-10-24] MEDS: Lactobacillus 1 EACH CAP.SPRINK PO SCH ×2 (09:55→23:24)
[2018-10-24] MEDS: Carbidopa/Levodopa 25/100 TABLET PO SCH ×2 (09:55→16:18)
[2018-10-24] MEDS: Vancomycin Oral Soln 125 MG/2.5 ML UDC PO SCH ×4 (09:57→23:23)
[2018-10-24 10:44] LABS: Mycoplasma pneumoniae IgG 1.56 U/L (<=0.09)
--- NOTE | 2018-10-24 11:44 | Cardiology Progress Note ---
Date of Encounter: 10/24/18 Time of Encounter: 11:30 Assessment and Plan (1) Preoperative cardiovascular examination Current Visit: Yes Status: Acute Please refer to Cardiology consult note for full Cardiology recommendations. Reconsult on 10/24/18 for preoperative cardiovascular examination and also poorly controlled blood pressures. After discussion with family, now plan for outpatient bronchoscopy. CTA chest shows complete RLLL collapse, possible atypical PNA. Elevated troponin (adynamic) in the setting of refractory C-diff, and complete RLL collapse. Suspect demand ischemia. Poor functional status. If plan to complete as inpatient, discussed with Dr. Arredondo; patient is an acceptable CV risk candidate to proceed with bronchoscopy. No further inpatient recommendations. Follow-up with primary [facility] at [place] 2-3 weeks after discharge. (2) Essential (primary) hypertension Current Visit: Yes Status: Acute Uncontrolled since admission. Patient/ report Lisinopril recently stopped during inpatient admission at [facility] d/t hypotension. Will resume low dose ACEi to improve BP control. Defer further medication titration to primary service. Discussion w patient/family: The assessment and plan as outlined above was discussed with the patient and/or family members who expressed understanding and agreement. All questions were answered. Thank you for involving us in the care of your patient. Please call with any questions. The patient will be discussed and reviewed with Dr. Arredondo; changes to be made accordingly. Subjective Principal diagnosis: Pre-operative CV examination- Interval history: Seen and examined. patient has no complaints other than generalized weakness and fatigue. Objective Vital Signs, Last 4 Hours Temp Pulse Resp BP 10/24/18 11:24 98.4 F 60 16 148/75 10/24/18 07:49 98.4 F 64 16 169/87 General: Other (appears chronically ill) HEENT: Atraumatic, Normocephaly Cardiac: Reg Rate and Rhythm, Normal S1 and S2 Lungs: Normal Breath Sounds Results 10/23/18 05:11 10/24/18 02:38 Lab Results 10/24/18 02:38 Sodium 137 Potassium 3.8 Chloride 103 Carbon Dioxide 28 BUN 5 L Creatinine 0.49 L Glucose 170 H Calcium 7.8 L Magnesium 1.4 L Troponin I 0.11 H* Active Medications Albuterol/Ipratropium (Duoneb) 3 ml IH [id number] PRN PRN Reason: Shortness Of Breath/Wheezing Stop: 04/22/19 15:32 Apixaban (Eliquis) 5 mg PO BID [facility] Stop: 04/21/19 21:46 Last Admin: 10/24/18 09:55 Dose: 5 mg Documented by: Carbidopa/Levodopa (Sinemet) 1.5 each PO TID MIKA Stop: 04/22/19 09:01 Last Admin: 10/24/18 09:55 Dose: 1.5 each Documented by: Cholestyramine Resin (Cholestyramine) 4 gm PO BIDAC MIKA Stop: 04/22/19 16:31 Last Admin: 10/24/18 07:52 Dose: 4 gm Documented by: Dextrose/Water (Dextrose 50% (Syg)) 25 ml IVP AD PRN PRN Reason: Hypoglycemia Stop: 04/21/19 21:33 Glucagon (Glucagen) 1 mg IM ONCE PRN PRN Reason: Hypoglycemia Stop: 04/21/19 21:33 Glucose (Gluctose) 15 gm PO ONCE PRN PRN Reason: Hypoglycemia Stop: 04/21/19 21:33 Glucose (Gluctose) 30 gm PO ONCE PRN PRN Reason: Hypoglycemia Stop: 04/21/19 21:33 Dextrose (Dextrose 5%) 1,000 mls @ 100 mls/hr IVC .Q10H PRN PRN Reason: HYPOGLYCEMIA Stop: 04/21/19 21:33 Ceftriaxone Sodium 1,000 mg/ (Sterile Water) 10 mls @ 600 mls/hr IVP HS [facility] Stop: 04/21/19 22:01 Last Infusion: 10/23/18 21:38 Dose: Infused Documented by: Insulin Human Lispro (Humalog) 0 units SQ TIDAC [facility]; Protocol Stop: 04/24/19 07:31 Last Admin: 10/24/18 07:55 Dose: 2 units Documented by: Insulin Human Lispro (Humalog) 0 units SQ [facility]; Protocol Stop: 04/23/19 23:16 Last Admin: 10/23/18 20:49 Dose: Not Given Documented by: Lactobacillus Acidophilus/Rhamnosus (Culturelle) 1 each PO BID [facility] Stop: 04/22/19 13:46 Last Admin: 10/24/18 09:55 Dose: 1 each Documented by: Lisinopril (Zestril) 2.5 mg PO DAILY [facility]; Protocol Stop: 04/25/19 11:46 Naloxone HCl (Narcan) 0.4 mg IVP Q2MPRN PRN PRN Reason: SEE COMMENTS Stop: 04/21/19 21:29 Ondansetron HCl (Zofran) 4 mg IVP Q8HR PRN PRN Reason: Nausea And Vomiting Stop: 04/21/19 21:29 Simvastatin (Zocor) 10 mg PO HS [facility] Stop: 04/22/19 21:01 Last Admin: 10/23/18 20:48 Dose: 10 mg Documented by: Sotalol HCl (Betapace) 160 mg PO BID [facility] Stop: 04/22/19 09:01 Last Admin: 10/24/18 09:55 Dose: 160 mg Documented by: Tamsulosin HCl (Flomax) 0.4 mg PO QPM [facility]; Protocol Stop: 04/22/19 18:01 Last Admin: 10/23/18 16:39 Dose: 0.4 mg Documented by: Vancomycin HCl (Firvanq) 250 mg PO QID [facility] Stop: 04/22/19 17:01 Last Admin: 10/24/18 09:57 Dose: 250 mg Documented by: - Imaging and Cardiology Echo: report reviewed - EKG Interpretation EKG results cardiology: personally reviewed Consult Discharge Plan - Plan Referrals: Sofy Blandon, EXPRESS MANAGER [Primary Care Provider] -
--- NOTE | 2018-10-24 16:51 | Pulmonology Progress Note ---
Date of Encounter: 10/24/18 Time of Encounter: 08:20 Assessment and Plan (1) Pneumonia Current Visit: No Status: Acute I have explained to the patient and his family at the bedside regarding bronchoscopy, however patient as well as family does not want to proceed and they will consider it as outpatient. Patient is 21 any acute distress and continue current treatment for pneumonia. Please call for any questions. Qualifiers: Pneumonia type: due to unspecified organism Laterality: right Lung location: lower lobe of lung Qualified Code(s): J18.1 - Lobar pneumonia, unspecified organism Subjective Principal diagnosis: Pre-operative CV examination- Interval history: Patient denies any complaints Objective PUL Vital signs: Last Vital Signs Temp 98.3 F 10/24/18 16:06 Pulse 68 10/24/18 16:06 Resp 18 10/24/18 16:06 BP 155/80 10/24/18 16:06 Pulse Ox 99 10/24/18 05:03 General appearance: no acute distress Eyes: nonicteric ENT: oropharynx dry Neck: supple Effort: normal Auscultation: left: clear, right: rhonchi Percussion: bilateral: not dull Cardiovascular: irregular rhythm Gastrointestinal: normoactive bowel sounds, non-distended Extremities: no cyanosis, edema normal mental status mood appropriate Results - Laboratory Findings CBC and BMP: 10/23/18 05:11 10/24/18 02:38 Abnormal lab findings: Abnormal lab results WBC 13.8 K/mcL (4.3-11.1) H 10/22/18 02:28 RBC 3.60 M/mcL (4.19-5.50) L 10/23/18 05:11 Hgb 11.0 g/dL (12.9-16.9) L 10/23/18 05:11 Hct 34.0 % (37.5-50.1) L 10/23/18 05:11 11.2 K/mcL (1.6-8.9) H 10/22/18 02:28 1.8 K/mcL (0.0-1.3) H 10/20/18 16:45 Present (Not Present) A 10/20/18 16:45 Sodium 135 mEq/L (136-145) L 10/20/18 16:45 Potassium 3.4 mEq/L (3.5-5.1) L 10/23/18 05:11 Carbon Dioxide 30 mEq/L (23-29) H 10/23/18 05:11 BUN 5 mg/dL (8-23) L 10/24/18 02:38 0.49 mg/dL (0.70-1.30) L 10/24/18 02:38 31 (6-26) H 10/21/18 06:41 Glucose 170 mg/dL (70-105) H 10/24/18 02:38 POC Glucose 146 mg/dL (70-99) H 10/24/18 07:54 Calcium 7.8 mg/dL (8.6-10.3) L 10/24/18 02:38 Magnesium 1.4 mg/dL (1.6-2.6) L 10/24/18 02:38 AST 6 Units/L (13-39) L 10/23/18 05:11 ALT < 3 Units/L (7-52) L 10/23/18 05:11 0.11 ng/mL (< 0.04) H* 10/24/18 02:38 5.4 g/dL (6.4-8.9) L 10/23/18 05:11 2.5 g/dL (3.5-5.7) L 10/23/18 05:11 0.9 (1.1-2.2) L 10/23/18 05:11 0 Units/L (11-82) L 10/20/18 16:45 Turbid (Clear) A 10/20/18 20:06 Ur Specific [place] > 1.030 (1.010-1.025) H 10/20/18 20:06 Trace mg/dL (Negative) H 10/20/18 20:06 Small (Negative) H 10/20/18 20:06 Ur Leukocyte Esterase Moderate (Negative) H 10/20/18 20:06 50-100 per hpf (0-3) H 10/20/18 20:06 Ur Squamous Epith Cells Many per lpf (None-Few) H 10/20/18 20:06 Many per hpf (None-Few) H 10/20/18 20:06 Many (Few) H 10/20/18 20:06 Few per hpf (None Seen) H 10/20/18 20:06 Ur Culture Indicated? YES (NO) A 10/20/18 20:06 Stl C. diff Tox B Gene Positive (Negative) A 10/20/18 16:38 Mycoplasma pneumon IgG 1.56 U/L (<=0.09) H 10/21/18 15:50 - Microbiology Findings Microbiology Findings: Microbiology, Last 48 Hours 10/22/18 09:45 Sputum Culture - Preliminary Sputum Gram Positive Cocci Gram Negative [place] 10/20/18 20:06 Urine Culture - Final Urine,Catheterized (Straight) Enterococcus faecalis - Clinical Findings Intake & Output: Intake & Output 10/24/18 10/24/18 10/24/18 07:59 15:59 23:59 Intake Total 808 / 808 Output Total 1650 / 2450 500 / 2450 300 / 2450 Balance -1650 / -1642 308 / -1642 -300 / -1642 Weight 82.5 kg Consult Discharge Plan - Plan Referrals: Sofy Blandon, BOOKKEEPING SERVICE SALES AGENT [Primary Care Provider] -
[2018-10-24] MEDS: cefTRIAXone 1,000 MG in Water for inj. (sterile) 10 ML IVP SCH (23:27)
[2018-10-25] MEDS: Carbidopa/Levodopa 25/100 TABLET PO SCH ×4 (01:05→22:21)
[2018-10-25] MEDS: Cholestyramine 4 GM POWD.PACK PO SCH ×2 (05:52→20:01)
[2018-10-25 07:14] LABS: Troponin I 0.08 ng/mL (< 0.04)
[2018-10-25 07:15] LABS: Magnesium 1.6 mg/dL (1.6-2.6)
--- NOTE | 2018-10-25 07:16 | Internal Med Progress Note ---
Hospitalist Progress Note - Encounter Date of Encounter: 10/25/18 Time of Encounter: 08:00 - Subjective Interval History: awake, family at bedside. no abd pain, n/v with diet overnight and this morning. diarrhea has slowed and rectal tube removed. no fevers or chills. conts to deny cough, wheezing, sputum or sob. - Exam Vitals: Temp Pulse Resp BP Pulse Ox 98 F 59 17 146/82 97 10/25/18 04:31 10/25/18 04:31 10/25/18 04:31 10/25/18 04:31 10/25/18 04:31 Exam: General: awake, alert, appears stated age Cardiovascular:regular rate and rhythm, normal S1 & S2, no lower extremity edema Lungs:Normal breath sounds, no wheezing, rhonchi or crackles, Normal respiratory effort on room air Abdomen:Soft, non-tender, non-distended, + hyperactive bowel sounds, no rectal t ube Neurological: AAOx3, masked facies - Assessment and Plan (1) C. difficile diarrhea Current Visit: Yes Status: Acute (2) UTI (urinary tract infection) Current Visit: Yes Status: Acute (3) Collapsed lung Current Visit: Yes Status: Acute (4) Hypokalemia Current Visit: Yes Status: Resolved (5) NSTEMI (non-ST elevated myocardial infarction) Current Visit: Yes Status: Acute - Summary of Assessment and Plan Summary of Assessment and Plan: Mr Olivares is a 73 yo male with pmhx atrial fibrillation on AC, coronary artery disease w hx multiple bypass grafts and >30 stents, diabetes, hypertension, parkinson disease, with recent outpt course of vancomycin for c diff managed by his PCP and chronic cough x6mon. He is admitted with refractory C diff colitis, NSTEMI and incidentally found to have collapsed RLL of lung C diff colitis -GI followed, final recs are Vanc QID PO x4 weeks followed by Vanc BID PO x4 weeks, lactobacillus bid and while inpt questran 4g BID -tolerating soft diet -rectal tube removed today and strict i/o to monitor stool outptu -will require gi fu with Dr Barker [place] 4 [place] NSTEMI, Type II [place] CAD hx s/p CABG and >30 PCIs -seen by cards, no intervention required -cont home eliquis, statin, sotalol -outpt fu -trop now < 0.1 HTN, stable previously treated outpt but meds stopped due to autonomic dysfunction with Parkinson disease and hypotensive episodes -cont sotalol -appreciate cardiology input--will cont lisinopril low dose pAfib on Eliquis- cont sotalol and AC, monitor lytes collapsed RLL of lung in setting of chronic cough CT chest with RLLL collapse, cannot rule out endobronchial lesion or mucus plug, appearance of possible atypical pna -Pulm following, bronch will be required, question is inpt vs outpt with family leaning toward outpt -Dr Evans updated to sputum cx results 10/25 + MRSA and pseudomonas and rec for ID consult, pseudomonas sensitivities are pending, MRSA sensitivities with multi drug resistance -no abx at this time given C Diff and stability while awaiting ID recs -stable on room air UTI E Faecalis -last dose of rocephin complete 10/24 Parkinson disease- cont home meds BPH- cont flomax DM- hold sliding scale lantus home dose- SSI and prn hypoglycemics. vte ppx AC as above - Time Spent with Patient Total time spent is greater than 50% in coordination of care (as documented) at patient's floor/unit and/or counseling patient: Internal Medicine: Result - Labs CBC & Chem 7: 10/23/18 05:11 10/24/18 02:38 Labs: Cardiac Enzymes 10/25/18 Range/Units 06:03 Troponin I 0.08 H* (< 0.04) ng/mL Consult Discharge Plan - Plan Referrals: Sofy Blandon, SECRETARY SPECIALIST [Primary Care Provider] - (2) UTI (urinary tract infection) Qualifiers: Urinary tract infection type: site unspecified Hematuria presence: without hematuria Qualified Code(s): N39.0 - Urinary tract infection, site not specified
[2018-10-25] MEDS: Insulin LISPRO 300 UNITS/3 ML VIAL SQ SCH ×4 (08:25→22:27)
[2018-10-25] MEDS: Vancomycin Oral Soln 125 MG/2.5 ML UDC PO SCH ×4 (08:26→22:20)
[2018-10-25] MEDS: Lactobacillus 1 EACH CAP.SPRINK PO SCH ×2 (10:11→22:21)
[2018-10-25] MEDS: Apixaban 5 MG TABLET PO SCH ×2 (10:11→22:21)
[2018-10-25 11:26] LABS: Aspergillus Ab by CF <1:8 (<1:8); Coccidioides Ab by CF <1:2 (<1:2)
--- NOTE | 2018-10-26 01:34 | Event Note ---
Date of Encounter: 10/26/18 Time of Encounter: 01:32 Alerted by nursing staff that patient had approximately 30 second run of Ventricular tachycardia on Telemetry which I did review personally. Patient was asymptomatic when assessed. Labs reviewed which showed hypomagnesemia on 10/25 at 1.6. Patient is currently in NSR with rate in 60s. Magnesium 2g will be ordered and BMP, magnesium repeat labs. Will follow up on these when they result.
[2018-10-26 03:57] LABS: Basophils # 0.1 K/mcL (0.0-0.2); Basophils % 0.6 %; Eosinophils # 0.2 K/mcL (0.0-0.6); Eosinophils % 2.1 %; Hematocrit 33.1 % (37.5-50.1); Hemoglobin 10.7 g/dL (12.9-16.9); Mean Corpuscular HGB Conc 32.3 g/dL (31.6-35.5); Mean Corpuscular Hemoglobin 30.7 pg (28.0-33.3); Mean Corpuscular Volume 94.8 fL (83.0-100.0); Mean Platelet Volume 9.7 fL (9.4-12.4); Monocytes # 0.8 K/mcL (0.0-1.3); Neutrophils # 6.5 K/mcL (1.6-8.9); Platelet Count 214 K/mcL (140-400); Red Blood Count 3.49 M/mcL (4.19-5.50); Red Cell Distribution Width 13.7 % (11.5-14.5); Segmented Neutrophils % 67.3 %; White Blood Count 9.6 K/mcL (4.3-11.1)
[2018-10-26 04:05] LABS: BUN/Creatinine Ratio 13 (6-26); Blood Urea Nitrogen 8 mg/dL (8-23); Carbon Dioxide 29 mEq/L (23-29); Chloride 100 mEq/L (98-107); Glucose 171 mg/dL (70-105); Osmolality,Calculated 282 (280-300); Potassium 3.9 mEq/L (3.5-5.1); Sodium 135 mEq/L (136-145); eGFR For African Americans > 60 (> 60); eGFR For Non-African Americans > 60 (> 60)
[2018-10-26 04:06] LABS: BUN/Creatinine Ratio 13 (6-26); Blood Urea Nitrogen 8 mg/dL (8-23); Carbon Dioxide 28 mEq/L (23-29); Chloride 100 mEq/L (98-107); Glucose 170 mg/dL (70-105); Magnesium 2.1 mg/dL (1.6-2.6); Osmolality,Calculated 282 (280-300); Potassium 3.9 mEq/L (3.5-5.1); Sodium 135 mEq/L (136-145); eGFR For African Americans > 60 (> 60); eGFR For Non-African Americans > 60 (> 60)
[2018-10-26] MEDS: Cholestyramine 4 GM POWD.PACK PO SCH ×2 (06:25→22:24)
[2018-10-26] MEDS: Insulin LISPRO 300 UNITS/3 ML VIAL SQ SCH ×4 (08:00→22:33)
[2018-10-26] MEDS: Apixaban 5 MG TABLET PO SCH ×2 (08:45→23:49)
[2018-10-26] MEDS: Lactobacillus 1 EACH CAP.SPRINK PO SCH ×2 (08:45→23:48)
[2018-10-26] MEDS: Carbidopa/Levodopa 25/100 TABLET PO SCH ×3 (08:45→23:49)
[2018-10-26] MEDS: Vancomycin Oral Soln 125 MG/2.5 ML UDC PO SCH ×5 (08:46→23:49)
--- NOTE | 2018-10-26 10:54 | Infectious Disease Consult ---
Infectious Disease-Consult - Encounter Date/Time Date of Encounter: 10/26/18 Time of Encounter: 10:43 - Data of Consult Patient: new to practice Reason for consult: pt here w c diff, refractory to outpt treatment; incidental RLL collapse and chronic cough; as d/w pulm request consult for sputum cx + MRSA and pseudomonas and potential treatment recommendations in setting of c diff Consult date: 10/26/18 Requesting Physician: Rito Cabello Primary Care Provider: Sofy Blandon CNP - HPI HPI: Mr. Olivares is a 73-year-old male with past medical history of CAD status post stents and CABG 2, A. fib, diabetes, hypertension, [place], and Parkinson's disease. The patient was admitted to the hospital 10/20/18 for pancolitis and C. difficile. We are consulted 10/26/18 for further workup and treatment recommendations for C. difficile colitis and pneumonia. Briefly, the patient is a 73-year-old male with past medical history as stated above. Patient presented to the emergency department with a 2 day history of left lower quadrant abdominal pain and watery stools. The patient had been diagnosed with C. difficile per PCR and EIA back on 09/28/18 by his PCP. He started a 10 day course of oral vancomycin on 09/29/18 which he finished on 10/09/18. According to his , he had improved and his stools were less frequent and more formed until he redevelop diarrhea the Wednesday prior to admission. Upon arrival, he was afebrile and hemodynamically stable. He had leukocytosis with neutrophilic predominance. Renal function and lactic acid were normal. Troponin was elevated at 0.26. Urinalysis was collected and appe ared contaminated, but was sent for culture came back positive for Enterococcus faecalis. Stool sent for C. difficile PCR was positive. The EIA was negative. He had a CT abdomen and pelvis that showed pancolonic wall thickening consistent with pancolitis and complete collapse of the imaged right lower lobe as well as bladder wall thickening concerning for cystitis versus chronic bladder outlet obstruction. He had a chest x-ray showed right middle lobe opacity suspicious for pneumonia. He was started on rectal vancomycin and IV Flagyl and admitted to the hospital for further evaluation and treatment. On admission, the patient was started on IV Rocephin for possible UTI. He was evaluated by pulmonology. Fungal serologies were checked including Blasto, coccidio, histo, Aspergillus, and fungitell which were negative. He had a CT of the chest that showed complete right lower lobe collapse with tree-in-bud nodules throughout bilateral lungs and left upper lobe airspace disease consist ent with atypical pneumonia. Pulmonology felt the findings were most consistent with chronic aspiration. Cardiology was consulted for possible positive troponin and determined that was likely secondary to demand ischemia area and speech therapy was consulted and performed a swallow study and recommended regular diet/textures with thin liquids without straws. GI was consulted to assist with management of the C. difficile and recommended oral vancomycin. A sputum culture was obtained that was positive for MRSA and pseudomonas. Pulmonology recommended bronchoscopy, which the patient declined and states he will consider pursuing as an outpatient. Since admission, the patient's diabetes he has normalized. He has had no other sepsis criteria. Currently, he is on oral vancomycin 250 mg 4 times a day. We have been asked to evaluate and make further recommendations. During my exam today, the patient and his endorsed a history as stated above. He denies any fevers, chills, or rigors. Denies chest pain, shortness of breath. He reports a chronic moist cough that has been ongoing for about 6 months. According to his , he was hospitalized at [place] at which time he was evaluated by INVENTORY ASSISTANT who recommended an altered diet. He was discharged from that hospitalization to [facility] where he worked with speech therapy and was transitioned to a regular diet with thin liquids, which she has been consuming at home. He tells me that he was having some abdominal cramping prior to this admission, mainly with bowel movements. He denies any urinary complaints. He states his appetite is good. He does endorse some nausea with vomiting prior to admission, but states this has resolved as well. He complains of bilateral lower extremity pain which is chronic secondary to his diabetic neuropathy. He denies any oral thrush or skin rashes. The patient lives at home with his and son. He is retired from [employer]. He denies any tobacco, alcohol, or illicit drug use. Denies recent travel outside the [facility]. Does have a dog at home. Denies any chronic infectious diseases. He has not been hospitalized since May and states he has not been on any antibiotics recently. - ROS Review of Systems: All systems reviewed and no additional remarkable complaints except as stated. - Results CBC & Chem 7: 10/26/18 03:14 10/26/18 03:14 - Exam Vitals: Temp Pulse Resp BP Pulse Ox 98.4 F 60 18 152/90 98 10/26/18 07:14 10/26/18 07:14 10/26/18 07:14 10/26/18 07:14 10/26/18 07:14 Exam: Head: Atraumatic, normal inspection, normocephalic. Eye: EOMI, PERRLA, no scleral icterus noted. ENT: Mucous membranes moist. No odontogenic infection noted. Large amount of oral secretions noted. Neck: Normal inspection, no meningismus. Respiratory: Crackles noted to the right base. No respiratory distress, rhonchi, or wheezes noted. Cardiovascular: Regular rate and irregular rhythm, S1 and S2 audible. No murmurs, rubs, or gallops. GI: Soft, nondistended, normal bowel sounds. Extremities:No joint swelling, pedal edema, or tenderness noted. Neurological: Alert, oriented 3, no focal deficits. Psychiatric: normal affect, normal mood. Skin: Dry, intact, warm. Normal color. No rashes. Carbidopa/Levodopa 25/100 [Sinemet 25/100] 1.5 tab PO TID 05/25/18 [History] Simvastatin [Zocor] 10 mg PO HS 05/25/18 [History] Apixaban [Eliquis] 5 mg PO BID 10/20/18 [History] Cholecalciferol (D-3) [Vitamin D] 1,000 unit PO DAILY 10/20/18 [History] Finasteride [Proscar] 5 mg PO DAILY 10/20/18 [History] Insulin Glargine,Hum.rec.anlog [Lantus Solostar] 0 - 15 unit SQ HS 10/20/18 [History] Magnesium Oxide [Magnesium] 500 mg PO DAILY 10/20/18 [History] Sotalol HCl [Betapace] 160 mg PO BID 10/20/18 [History] Tamsulosin [Flomax] 0.4 mg PO QPM 10/20/18 [History] Allergy/AdvReac Type Severity Reaction Status Date / Time tirofiban Allergy Intermediate See Verified 05/25/18 14:04 [From Aggrastat Concentrate] Comments - Assessment and Plan (1) Leukocytosis Current Visit: Yes Status: Acute WBC elevated at 23.7 on admission. Likely secondary to C. difficile colitis. Resolved. Qualifiers: Leukocytosis type: unspecified Qualified Code(s): D72.829 - Elevated white blood cell count, unspecified SNOMED Code(s): 299633921, 091382671 (2) C. difficile diarrhea Current Visit: Yes Status: Acute First recurrence. Previously treated with a ten-day course of oral vancomycin. Non-severe. CT of the abdomen and pelvis showed findings consistent with pancolitis. C. difficile PCR positive, but EIA negative. Clinical picture on admission consistent with active C. difficile infection. Currently on oral vancomycin 250 mg 4 times a day. SNOMED Code(s): 5277072282430 (3) Pneumonia Current Visit: No Status: Acute CT chest showed complete right lower lobe collapse with no discrete measurable obstructing mass noted, however, an obstructing endobronchial lesion noticed on the differential cannot be excluded. Differential also includes mucous plugging. There are also innumerable tree and bud nodules throughout both lungs with patchy areas of left upper lobe airspace consolidation suggesting an atypical pneumonia. Pulmonology consulted. Feels this is likely low secondary to chronic aspiration. Bronchoscopy offered, but patient and his family declined at this time and will consider as an outpatient. The patient does have a history of aspiration and was evaluated by INVENTORY ASSISTANT who recommended regular textures with thin liquids without straws. Fungal serologies were negative. Sputum culture was positive for MRSA and pneumonia. Not sure how much this is contributing to the patient's clinical picture as he appears to have markedly improved without appropriate treatment. Discussed with pulmonology who feels this is likely a colonizer since clinically the patient looks well and is no longer septic without appropriate treatment. Will plan to treat with a shorter course of oral antibiotics, however I'm not sure how successful treatment will without adequate source control of the mucous plugging that is likely causing the RLL collapse noted on CT scan. Not currently on any antibiotic therapy for this infection. Qualifiers: Pneumonia type: due to unspecified organism Laterality: right Lung location: lower lobe of lung Qualified Code(s): J18.1 - Lobar pneumonia, unspecified organism SNOMED Code(s): 232776985 (4) Pancolitis Current Visit: Yes Status: Acute Noted on CT scan of the abdomen and pelvis. Likely secondary C. difficile. Clinically improved. Currently on oral vancomycin. SNOMED Code(s): 416881528 (5) UTI (urinary tract infection) Current Visit: Yes Status: Acute Asymptomatic bacteriuria. Causative organism: Enterococcus faecalis. Clinically improved without appropriate treatment (received Rocephin 5 days, which does not cover enterococcus). No further antibiotics recommended. Qualifiers: Urinary tract infection type: site unspecified Hematuria presence: without hematuria Qualified Code(s): N39.0 - Urinary tract infection, site not specified SNOMED Code(s): 13994537 (6) Collapsed lung Current Visit: Yes Status: Acute Noted on CT of the chest. Likely secondary to chronic aspiration per pulmonology. Bronchoscopy offered, but declined by the patient and his family. May consider completing as an outpatient. SNOMED Code(s): 78791479 (7) Generalized weakness Current Visit: No Status: Acute Likely secondary to infection superimposed on Parkinson's disease. PT/OT per the primary team. SNOMED Code(s): 82849345 (8) Elevated troponin Current Visit: Yes Status: Acute Cardiology consult and feels that this is likely secondary to demand ischemia. SNOMED Code(s): 970752960, 406774129, 043015937 (9) Parkinson disease Current Visit: No Status: Chronic SNOMED Code(s): 31528671 (10) CAD (coronary artery disease) of artery bypass graft Current Visit: Yes Status: Chronic Qualifiers: [place] vs. transplanted heart: [place] heart Associated angina: angina presence unspecified Qualified Code(s): I25.810 - Atherosclerosis of coronary artery bypass graft(s) without angina pectoris SNOMED Code(s): 179130994, 74995087, 066572138, 127040907, 989057796 (11) Essential (primary) hypertension Current Visit: Yes Status: Acute SNOMED Code(s): 51628647 (12) Afib Current Visit: No Status: Chronic Qualifiers: Atrial fibrillation type: chronic Qualified Code(s): I48.2 - Chronic atrial fibrillation SNOMED Code(s): 99893501 - Recommendations Recommendations: Continue to trend WBC. Continue PO Vancomycin, but decrease dose to 125mg PO QID. Will plan to do a Vanc taper over 6 weeks. Consider delfloxacin 450mg PO Q12H. Unfortunately, we do not have this medication on formulary so will need to be prescribed and filled out an outside pharmacy. Start flagyl 500mg PO TID. Duration of treatment depends on the clinical picture. Vanc taper x 6 weeks as below. Flagyl PO x 10 days. Delfloxacin x 10 days. Monitor renal function and dose-adjust antibiotics. Contact, C. diff, and droplet precautions per the hospital policy. Vanc Taper: 125 mg orally four times daily for 14 days (through 11/03), 125 mg orally twice daily for 7 days (through 11/10/18), 125 mg orally once daily for 7 days (through 11/17/18), 125 mg orally every 2 or 3 days for 2 weeks (through 12/01/18). Past Med Surg Social Fam HX - Past Medical History Attestation: Yes The following information was validated with the patient. Source: patient, old records reviewed, nursing notes reviewed Medical history: atrial fibrillation, coronary artery disease, diabetes, hypertension, myocardial infarction Additional medical history: parkinsons Psychiatric history: no psych history - Past Surgical History Surgical History: angioplasty/stent Additional surgical history: 33 cardiac stents, double chamber pacemaker, rectal surgery - Social History Smoking Status: Never smoker Smokeless Tobacco Status: No Alcohol use: none Drug use: none Occupational status: retired Current living situation: Home, With Family Activity Level: Uses cane/walker Recent Out of Country Travel Within the Last 8 Weeks: No Exposure or Possible Exposure to Illness During Travel: No Consult Discharge Plan - Plan Referrals: Sofy Blandon, PUMP HOUSE ENGINEER [Primary Care Provider] - - Attending Attestation I have personally performed a face to face evaluation on this patient. I have reviewed and agree with the care plan. History and Exam by me shows: Patient seen and examined. Please refer to Antonia's note for full details. Agree with above history of present illness, review of system and physical exam findings. Assessment and plan: Pneumonia with collapse of the right lower lobe likely secondary to mucous plugging. Sputum culture grew MRSA and pansensitive pseudomonas aeruginosa C. difficile colitis with recurrence Pancolitis Recent urinary tract infection with enterococcus versus asymptomatic bacteriuria Parkinson's disease Concern for aspiration pneumonia Recommendations Continue to trend WBC. Continue PO Vancomycin, but decrease dose to 125mg PO QID. Will plan to do a Vanc taper over 6 weeks. Consider delfloxacin 450mg PO Q12H. Unfortunately, we do not have this medication on formulary so will need to be prescribed and filled out an outside pharmacy. Start flagyl 500mg PO TID. Duration of treatment depends on the clinical picture. Vanc taper x 6 weeks as below. Flagyl PO x 10 days. Delfloxacin x 10 days. Monitor renal function and dose-adjust antibiotics. Contact, C. diff, and droplet precautions per the hospital policy. Vanc Taper: 125 mg orally four times daily for 14 days (through 11/03), 125 mg orally twice daily for 7 days (through 11/10/18), 125 mg orally once daily for 7 days (through 11/17/18), 125 mg orally every 2 or 3 days for 2 weeks (through 12/01/18).
--- NOTE | 2018-10-26 17:31 | Internal Med Progress Note ---
Hospitalist Progress Note - Encounter Date of Encounter: 10/26/18 Time of Encounter: 08:00 - Subjective Interval History: Patient was seen with his this AM. Yesterday even though it was noticed. He denied abdominal pain, nausea or vomiting. His last bowel movement was yesterday. He has no fever, chills or night sweats. He denied any chest pain or shortness of breath but has small yellowish sputum. - Exam Vitals: Temp Pulse Resp BP Pulse Ox 98.4 F 60 17 164/79 98 10/26/18 07:14 10/26/18 16:52 10/26/18 16:52 10/26/18 16:52 10/26/18 16:52 Exam: Head: Atraumatic, normal inspection, normocephalic. Eye: EOMI, PERRLA, no scleral icterus noted. ENT: Mucous membranes moist. No odontogenic infection noted. Large amount of oral secretions noted. Neck: Normal inspection, no meningismus. Respiratory: Crackles noted to the right base. No respiratory distress, rhonchi, or wheezes noted. Cardiovascular: Regular rate and irregular rhythm, S1 and S2 audible. No murmurs, rubs, or gallops. GI: Soft, nondistended, normal bowel sounds. Extremities:No joint swelling, pedal edema, or tenderness noted. Neurological: Alert, oriented 3, no focal deficits. Psychiatric: normal affect, normal mood. Skin: Dry, intact, warm. Normal color. No rashes. - Assessment and Plan (1) C. difficile diarrhea Current Visit: Yes Status: Acute (2) UTI (urinary tract infection) Current Visit: Yes Status: Acute (3) Collapsed lung Current Visit: Yes Status: Acute (4) Hypokalemia Current Visit: Yes Status: Resolved (5) NSTEMI (non-ST elevated myocardial infarction) Current Visit: Yes Status: Resolved - Summary of Assessment and Plan Summary of Assessment and Plan: Mr Olivares is a 73 yo male with pmhx atrial fibrillation on AC, coronary artery disease w hx multiple bypass grafts and >30 stents, diabetes, hypertension, parkinson disease, with recent outpt course of vancomycin for c diff managed by his PCP and chronic cough x6mon. He is admitted with refractory C diff colitis, NSTEMI and incidentally found to have collapsed RLL of lung C diff colitis: Resolved - GI and ID are following - Patient is afebrile, has no leukocytosis. Hemodynamically stable. No BM since yesterday - On slow taper PO vancomycin 125mg QID. I discussed with ID and patient will go home on tapering vancomycin dose, duration of therapy would be 6 weeks as per ID note (please see their note.) - Flagyl is started today by ID for 10 days. - final recs are Vanc QID PO x4 weeks followed by Vanc BID PO x4 weeks, lactobacillus bid and while inpt questran 4g BID - We will advance diet as tolerated - rectal tube removed yesterday. - will require gi fu with Dr Barker in 4 weeks from dc collapsed RLL of lung: -CT chest with RLLL collapse, cannot rule out endobronchial lesion or mucus plug, appearance of possible atypical pna -Pulm following, bronch will be required, family preferred outpatient bronch. -ScX is + for MRSA and Pseudomonas. ID is considering delfloxacin, medication has to be brought from outpatient facility. -stable on room air NSTEMI, Type II NM CAD hx s/p CABG and >30 PCIs -seen by cards, no intervention required -cont home eliquis, statin, sotalol -outpt fu -trop now < 0.1 HTN, stable - previously treated outpt but meds stopped due to autonomic dysfunction with Parkinson disease and hypotensive episodes -cont sotalol -appreciate cardiology input--will cont lisinopril low dose pAfib on Eliquis- cont sotalol and AC, monitor lytes UTI E Faecalis -last dose of rocephin complete 10/24 Parkinson disease- cont home meds BPH- cont flomax DM- hold sliding scale lantus home dose- SSI and prn hypoglycemics. vte ppx AC as above - Time Spent with Patient Total time spent is greater than 50% in coordination of care (as documented) at patient's floor/unit and/or counseling patient: Plan of Care Discussed with: family Internal Medicine: Result - Labs CBC & Chem 7: 10/26/18 03:14 10/26/18 03:14 Labs: Short CBC 10/26/18 Range/Units 03:14 WBC 9.6 (4.3-11.1) K/mcL Hgb 10.7 L (12.9-16.9) g/dL Hct 33.1 L (37.5-50.1) % Plt Count 214 (140-400) K/mcL Neutrophils # 6.5 (1.6-8.9) K/mcL BMP 10/26/18 10/26/18 03:14 03:14 Sodium 135 L 135 L Potassium 3.9 3.9 Chloride 100 100 Carbon Dioxide 28 29 BUN 8 8 Creatinine 0.60 L 0.61 L Glucose 170 H 171 H Calcium 8.0 L 8.0 L Consult Discharge Plan - Plan Referrals: Sofy Blandon, MANAGER SAFE [Primary Care Provider] - (2) UTI (urinary tract infection) Qualifiers: Urinary tract infection type: site unspecified Hematuria presence: without hematuria Qualified Code(s): N39.0 - Urinary tract infection, site not specified
[2018-10-27] MEDS: Cholestyramine 4 GM POWD.PACK PO SCH (06:52)
[2018-10-27 07:11] VITALS: BP 128/70
[2018-10-27 08:10] LABS: Basophils # 0.1 K/mcL (0.0-0.2); Basophils % 0.6 %; Eosinophils # 0.2 K/mcL (0.0-0.6); Eosinophils % 1.7 %; Hematocrit 32.4 % (37.5-50.1); Hemoglobin 10.4 g/dL (12.9-16.9); Immature Granulocytes % 1.2 % (0-4); Lymphocytes # 2.2 K/mcL (0.6-4.6); Lymphocytes % 17.5 %; Mean Corpuscular HGB Conc 32.1 g/dL (31.6-35.5); Mean Corpuscular Hemoglobin 30.6 pg (28.0-33.3); Mean Corpuscular Volume 95.3 fL (83.0-100.0); Mean Platelet Volume 10.2 fL (9.4-12.4); Monocytes # 0.8 K/mcL (0.0-1.3); Neutrophils # 9.1 K/mcL (1.6-8.9); Platelet Count 232 K/mcL (140-400); Red Cell Distribution Width 13.9 % (11.5-14.5); White Blood Count 12.5 K/mcL (4.3-11.1)
[2018-10-27] MEDS: Lactobacillus 1 EACH CAP.SPRINK PO SCH (08:25)
[2018-10-27] MEDS: Carbidopa/Levodopa 25/100 TABLET PO SCH (08:26)
[2018-10-27] MEDS: Apixaban 5 MG TABLET PO SCH (08:26)
[2018-10-27 08:27] LABS: BUN/Creatinine Ratio 16 (6-26); Blood Urea Nitrogen 10 mg/dL (8-23); Calcium 8.1 mg/dL (8.6-10.3); Carbon Dioxide 31 mEq/L (23-29); Chloride 99 mEq/L (98-107); Glucose 180 mg/dL (70-105); Osmolality,Calculated 284 (280-300); Potassium 4.2 mEq/L (3.5-5.1); Sodium 135 mEq/L (136-145); eGFR For African Americans > 60 (> 60); eGFR For Non-African Americans > 60 (> 60)
[2018-10-27] MEDS: Vancomycin Oral Soln 125 MG/2.5 ML UDC PO SCH (08:27)
[2018-10-27] MEDS: Insulin LISPRO 300 UNITS/3 ML VIAL SQ SCH (08:27)
--- NOTE | 2018-10-27 10:30 | Discharge Summary ---
- NOTES TO OUTPATIENT PROVIDER Notes to Outpatient Provider: Follow-up on CBC, BMP and stool counts. Full up with pulmonary service for bronchoscopy. Orders not resulted at time of discharge: Pending orders 10/21/18 14:59 Culture,Sputum with Gram Stain [RM] Routine Date of Encounter: 10/27/18 Time of Encounter: 10:00 - Discharge Diagnosis (1) C. difficile diarrhea Priority: Primary Status: Acute (2) Collapsed lung Priority: Secondary Status: Acute (3) NSTEMI (non-ST elevated myocardial infarction) Priority: Secondary Status: Resolved (4) UTI (urinary tract infection) Priority: Secondary Status: Resolved Qualifiers: Urinary tract infection type: site unspecified Hematuria presence: without hematuria Qualified Code(s): N39.0 - Urinary tract infection, site not specified (5) Hypokalemia Priority: Secondary Status: Resolved Hospital course: Mr Olivares is a 73 yo male with pmhx atrial fibrillation on AC, coronary artery disease w hx multiple bypass grafts and >30 stents, diabetes, hypertension, parkinson disease, with recent outpt course of vancomycin for c diff managed by his PCP and chronic cough x6mon. He was admitted with refractory C diff colitis, NSTEMI and incidentally found to have collapsed RLL of lung. Symptoms were managed as following: C diff colitis: - Patient was placed on oral vancomycin with ID and GI service is following. His diarrhea significantly improved and then resolved to a discharge. Patient remained asymptomatic and denied any fever, chills or abdominal pain. ID recommended very long and slow taper of his by mouth vancomycin as noted in his discharge medications. He was also be discharged on Flagyl for 10 days. Follow up with GI and ID is recommended. Family agreed. collapsed RLL of lung: -Incidental finding on CT of the chest which revealed RLLL collapse, cannot rule out endobronchial lesion or mucus plug, appearance of possible atypical pna. Pulmonary service was consulted and patient was recommended to be bronched however agent and the family decided to defer that procedure as outpatient. Sputum cultures came back positive for MRSA and Pseudomonas and patient remained asymptomatic. ID considered delfloxacin however we do not have it inpatient so patient will refit as outpatient. Instructions are given to the son and . Leukocytosis: - Patient had initial elevation in his WBC counts likely secondary to his diarrhea. His WBC counts remain within normal limits during hospitalization until the day of discharge when he had slight rise in his WBC counts. This was discussed with the family who decided to go home and check blood work in 3 days before his primary care visit. Patient has no fever, chills or night sweats. He looks clinically back to baseline as per the family. NSTEMI, Type II [place] -CAD hx s/p CABG and >30 PCIs -seen by cards, no intervention required -cont home eliquis, statin. -outpt fu UTI E Faecalis -last dose of rocephin complete 10/24 Today, patient is hematologically stable. He is afebrile and back to baseline. PT/OT recommended home health however the family declined stating that they can manage at home including his and his son. - Time Spent with Patient Total time spent providing and/or coordinating discharge services: 55 minutes - Discharge Medications Prescriptions: New Cholestyramine 4 gm PO BID@0630,2000 10 Days powd.pack Lactobacillus [Culturelle] 1 each PO BID@1000,2200 10 Days cap.sprink Vancomycin Oral Soln [Firvanq] 125 mg PO QID #84 udc Lisinopril [Zestril] 2.5 mg PO DAILY tablet Continued Carbidopa/Levodopa 25/100 [Sinemet 25/100] 1.5 tab PO TID Simvastatin [Zocor] 10 mg PO HS Tamsulosin [Flomax] 0.4 mg PO QPM Apixaban [Eliquis] 5 mg PO BID Finasteride [Proscar] 5 mg PO DAILY Insulin Glargine,Hum.rec.anlog [Lantus Solostar] 0 - 15 unit SQ HS Sotalol HCl [Betapace] 160 mg PO BID Cholecalciferol (D-3) [Vitamin D] 1,000 unit PO DAILY Discontinued Magnesium Oxide [Magnesium] 500 mg PO DAILY Home Medications: Carbidopa/Levodopa 25/100 [Sinemet 25/100] 1.5 tab PO TID 05/25/18 [History] Simvastatin [Zocor] 10 mg PO HS 05/25/18 [History] Apixaban [Eliquis] 5 mg PO BID 10/20/18 [History] Cholecalciferol (D-3) [Vitamin D] 1,000 unit PO DAILY 10/20/18 [History] Finasteride [Proscar] 5 mg PO DAILY 10/20/18 [History] Insulin Glargine,Hum.rec.anlog [Lantus Solostar] 0 - 15 unit SQ HS 10/20/18 [History] Sotalol HCl [Betapace] 160 mg PO BID 10/20/18 [History] Tamsulosin [Flomax] 0.4 mg PO QPM 10/20/18 [History] Cholestyramine 4 gm PO BID@0630,2000 10 Days powd.pack 10/27/18 [Rx] Lactobacillus [Culturelle] 1 each PO BID@1000,2200 10 Days cap.sprink 10/27/18 [Rx] Lisinopril 2.5 mg PO DAILY #30 tablet 10/27/18 [Rx] Vancomycin Oral Soln [Firvanq] 125 mg PO QID #84 udc 10/27/18 [Rx] metroNIDAZOLE [Flagyl] 500 mg PO TID #30 tablet 10/27/18 [Rx] Allergies/Adverse Reactions: Allergy/AdvReac Type Severity Reaction Status Date / Time tirofiban Allergy Intermediate See Verified 05/25/18 14:04 [From Aggrastat Concentrate] Comments Date of admission: 10/20/18 21:28 Primary care physician: Sofy Blandon CNP Consults: 10/21/18 08:27 Consult to Cardiology [CONS] Routine Comment: Consulting Provider: Cardiology [place] Reason for Consult: CAD s/p multiple cabg and stents, here with c diff and trops 0.2s, eval for cardiac intervention recs, thank you Call Completed: Yes 10/21/18 08:31 Consult to Gastroenterology [CONS] Routine Consulting Provider: Gastroenterology [place] Reason for Consult: refractory c diff, treatments recs appreciated Call Completed: No 10/21/18 13:14 Consult to Pulmonology [CONS] Routine Consulting Provider: [facility] [place] Reason for Consult: here w Cdiff, cough x6 months, CT scan showed collapse RLL, cannot rule out mass, mucus plug, also possible atypical pna, please eval for tx recs, possible bronch, abx; thank you Call Completed: Yes 10/23/18 07:27 Consult to Nutrition [CONS] Routine Comment: low protein Consulting Provider: NUTRITION Reason for Dietary Consult: PO Supplementation 10/24/18 10:24 Consult to Cardiology [CONS] Routine Comment: Consulting Provider: Cardiology [facility] Reason for Consult: pre procedural cardiac risk assessment (bronchoscopy later this week). Type II NSTEMI this admit, severe CAD s/p CABGs and PCI x>30, Afib on sotalol. Also apreciate HTN tx recs (hx prior tx stopped due to Parkinson dz and intermittent hypotension episodes; consistently elevated here) Call Completed: Yes 10/25/18 07:14 Consult to Physical Therapy [CONS] Routine Comment: Evaluate, develop and implement POC Reason for Consult: Evaluate, develop and implement POC Does patient have active BEDREST order?: No Is patient medically & hemodynamically stable?: Yes Patient assessed for mobility or mobilized this visit?: Yes OT [Consult to Occupational Therapy] [CONS] Routine Comment: Evaluate, develop and implement POC Reason for Consult: Evaluate, develop and implement POC Does patient have active BEDREST order?: No Is patient medically & hemodynamically stable?: Yes Patient assessed for mobility or mobilized this visit?: Yes 10/25/18 12:48 Consult to Infectious Diseases [CONS] Routine Consulting Provider: Infectious Disease [place] Reason for Consult: pt here w c diff, refractory to outpt treatment; incidental RLL collapse and chronic cough; as d/w pulm request consult for sputum cx + MRSA and pseudomonas and potential treatment recommendations in setting of c diff Call Completed: Yes - Constitutional Vitals: Temp Pulse Resp BP Pulse Ox 98.0 F 60 17 128/70 97 10/27/18 07:07 10/27/18 07:07 10/27/18 07:07 10/27/18 07:07 10/27/18 07:07 General appearance: Present: cooperative, A&O X 3, pleasant, no acute distress, answers questions appropriately Exam: Head: Atraumatic, normal inspection, normocephalic. Eye: EOMI, PERRLA, no scleral icterus noted. ENT: Mucous membranes moist. No odontogenic infection noted. Large amount of oral secretions noted. Neck: Normal inspection, no meningismus. Respiratory: Crackles noted to the right base. No respiratory distress, rhonchi, or wheezes noted. Cardiovascular: Regular rate and irregular rhythm, S1 and S2 audible. No murmurs, rubs, or gallops. GI: Soft, nondistended, normal bowel sounds. Extremities:No joint swelling, pedal edema, or tenderness noted. Neurological: Alert, oriented 3, no focal deficits. Psychiatric: normal affect, normal mood. Skin: Dry, intact, warm. Normal color. No rashes. - Patient Status Disposition: Home, Self-Care Condition: Good Functional capacity at discharge: uses cane/walker Overall status at discharge: patient is back to baseline - Ambulatory Orders Ambulatory Orders: Basic Metabolic Panel [CHEM] Time Frame: 3 Days, Facility: [facility], Location: Lab Complete Blood Count [HEME] Time Frame: 3 Days, Facility: [facility], Location: Lab - Discharge Instructions Follow Up With: Ron Barker MD [Partnered Physician] - (Physicians office will call patient to schedule an appointment. ) Roni Evans MD [Partnered Physician] - Sofy Blandon, AGUSTIN [Primary Care Provider] - (Physicians office will call the patient to schedule an appointment with PCP.) Matt Peña MD [Non-Partnered Physician] - Juliet Graham MD [Partnered Physician] - - Diet and Activity Activity: ambulate only with your walker, return to work once cleared by your PCP/specialist Diet: diabetic diet
== END 2018-10-27 11:54 | disposition home or self-care (01) | DRG 371 ==
LOC: 2NENU 15:48 → EMEROOARM 15:48 → SUATTDRO 21:28 → 2NENU 21:50
PROVIDERS: ADMIT Family Medicine; ATTEND Internal Medicine